=== PATIENT | male | born 1955 | race Hispanic/Latino ===

== ENCOUNTER 2016-05-30 13:35 | Inpatient (IN) | payer MEDICARE ==
[2016-05-30 14:33] LABS: Basophils % (Auto) 0.8 % (0.0-1.8); Eosinophils % (Auto) 1.4 % (0.0-4.3); Hematocrit 40.3 % (35.5-45.6); Hemoglobin 12.7 gm/dl (11.8-15.2); Mean Corpuscular HGB Conc 32 % (32-34); Mean Corpuscular Hemoglobin 27 pg (28-32); Mean Corpuscular Volume 85 fl (84-94); Platelet Count 499 K/mm3 (140-440); Red Blood Count 4.75 M/mm3 (3.65-5.03); White Blood Count 14.5 K/mm3 (4.5-11.0)
[2016-05-30 14:49] LABS: Anion Gap 25 mmol/L; Blood Urea Nitrogen 21 mg/dL (9-20); Calcium 8.4 mg/dL (8.4-10.2); Carbon Dioxide 18 mmol/L (22-30); Chloride 101.9 mmol/L (98-107); Glucose 104 mg/dL (75-100); Potassium 5.3 mmol/L (3.6-5.0); Sodium 140 mmol/L (137-145)
--- NOTE | 2016-05-30 14:52 | XRay Report ---
Chest 2 views: Compared to 08/18/15. History: Shortness of breath. Findings: Normal cardiomediastinal silhouette. The trachea is midline. Stable Port-A-Cath. Ill-defined new density in the right upper lobe and right middle lobe. Normal CP angles. Impression: New densities right lung suggestive of pneumonitis.
--- NOTE | 2016-05-30 15:35 | Admit Criteria Form ---
Admission Criteria Documentation: RESPIRATORY FAILURE GRG Clinical Indications for Admission to Inpatient Care (Place 'X' for any and all applicable criteria): Hospital admission is needed for appropriate care of the patient because of acute respiratory failure or insufficiency as indicated by ANY ONE of the following(1)(2)(3)(4)(5)(6)(7)(8): [ ]I. Mechanical ventilation needed (acute invasive or noninvasive) [ ]II. Severe ventilation deficit as indicated by ANY ONE of the following (9) [ ]a) Respiratory acidosis (pH less than 7.32 and partial pressure of carbon dioxide greater than 40 mm Hg (5.3 kPa)) [ ]b) Partial pressure of carbon dioxide greater than 44 mm Hg (5.9 kPa ) (new) [ ]c) Airflow measurements less than 25% of predicted (eg, peak expiratory flow rate less than 100 L/minute) [ ]d) Forced vital capacity less than 15 mL/kg of ideal body weight, or 50% decrease in vital capacity from baseline [ ]III. Noncardiac pulmonary edema not resolving with rapid emergency treatment (8) [X]IV. Severe respiratory distress as indicated by ANY ONE of the following: [ ]a) Severe tachypnea (respiratory rate greater than 30, greater than 45 for 6-month-old, greater than 60 for ) [X]b) Severe hypoxemia (partial pressure of oxygen less than 50 mm Hg ( 6.7 kPa) on greater than 50% oxygen or partial pressure of oxygen to FIO2 ratio less than 200) [ ]c) Mental status deterioration from respiratory disease [ ]V. Airway obstruction or inadequate protection [A](10)(11) The original [employer] content created by [employer] has been revised. The portions of the content which have been revised are identified through the use of italic text or in bold, and [facility] has neither reviewed nor approved the modified material. All other unmodified content is copyright [employer]. Please see references footnoted in the original [employer] edition 2016 Admission Criteria Met: Yes
[2016-05-30] MEDS ORDERED: DUONEB 0.5 MG-3 MG/3 ML SOLN IH ONE (17:59)
[2016-05-30] MEDS ORDERED: MAGNESIUM SULFATE 2GM/50ML 2 GM/50 ML BAG IV ONE (17:59)
[2016-05-30] MEDS ORDERED: TESSALON PERLES PO ONE (18:00)
[2016-05-30] MEDS ORDERED: MUCINEX ER PO ONE (18:00)
[2016-05-30] MEDS ORDERED: NACL 0.9% 1000 ML 1,000 ML IV ONE (18:01)
[2016-05-30] MEDS ORDERED: LEVAQUIN PO ONE (18:01)
[2016-05-30 19:15] LABS: ISTAT Base Excess -5; ISTAT HCO3 18.4; ISTAT PH 7.458 (7.35-7.45); ISTAT PO2 48 (80-105); ISTAT SO2 86; ISTAT TCO2 19
[2016-05-30] MEDS ORDERED: LEVAQUIN 750MG/150ML 750 MG/150 ML BAG IV ONE (19:19)
--- NOTE | 2016-05-30 19:21 | Emergency Department Report ---
HPI - General Chief Complaint: Dyspnea/Respdistress Time Seen by Provider: 05/30/16 17:56 - HPI HPI: The patient is a 60-year-old male with a history of COPD, who presents for evaluation of dyspnea and cough. The patient reports 2 weeks of progressive dyspnea and cough, dyspnea severe for the past one day, constant, exacerbated with exertion and coughing. She states that his cough has been productive of rivero sputum. He also complains of on and off chest pain since yesterday, 08/18 in severity, midsternal, aching in quality, exacerbated with coughing. The patient denies fever, trauma to the chest wall, hemoptysis, unilateral leg swelling, recent immobilization, history of DVT or PE. ED Past Medical Hx - Past Medical History Hx Hypertension: Yes Hx Heart Attack/AMI: Yes (stents) Hx Congestive Heart Failure: No Hx Diabetes: No Hx Pulmonary Embolism: No Hx Renal Disease: Yes (recurrent pyelonephritis, with urosepsis) Hx Kidney Stones: Yes Hx Asthma: Yes Hx COPD: No Hx Tuberculosis: No Hx HIV: No Additional medical history: left nephrectomy 2014,Hepatic CA - Surgical History Hx Coronary Stent: Yes (1 in RCA) Hx Open Heart Surgery: No Hx Cholecystectomy: No Hx Appendectomy: No Hx Breast Surgery: No Additional Surgical History: right knee, bilateral rotator cuff surgery, 2 elbow surgeries. - Social History Smoking Status: Former Smoker Substance Use Type: None - Medications Home Medications: Home Medications Medication Instructions Recorded Confirmed Last Taken Type Famotidine [Pepcid] 20 mg PO QDAY #30 tablet 08/19/14 05/30/16 08/18/15 05:59 Rx Ipratropium/Albuterol Sulfate 1 ampul IH Q8HRT #1 mo 08/19/14 05/30/16 08/18/15 05:59 Rx [Duoneb 0.5 mg-3 mg/3 ml Soln] Clopidogrel [Plavix] 75 mg PO QDAY #30 tablet 08/19/15 05/30/16 Unknown Rx Lisinopril [Zestril TAB] 5 mg PO QDAY #30 tablet 08/19/15 05/30/16 Unknown Rx Metoprolol [Lopressor TAB] 50 mg PO BID #60 tablet 08/19/15 05/30/16 Unknown Rx Simvastatin [Zocor TAB] 40 mg PO QHS #30 tablet 08/19/15 05/30/16 Unknown Rx Zolpidem [Ambien] 5 mg PO QHS PRN #15 tablet 08/19/15 05/30/16 Unknown Rx oxyCODONE [Roxicodone TAB] 5 mg PO Q6H PRN #30 tablet 08/19/15 05/30/16 Unknown Rx traMADol [Ultram 50 MG tab] 50 mg PO Q8H PRN #30 tablet 08/19/15 05/30/16 Unknown Rx HYDROcodone/APAP 5-325 [[place] 1 tab PO Q6H PRN 05/30/16 05/30/16 Unknown History 5-325 mg TAB] Omeprazole 20 mg PO DAILY 05/30/16 05/30/16 Unknown History ED Review of Systems ROS: Stated complaint: MARISELA Other details as noted in HPI Constitutional: denies: fever ENT: denies: throat or neck pain Respiratory: reports cough, shortness of breath Cardiovascular: reports chest pain Endocrine: denies unexplained weight loss or gain Gastrointestinal: denies: abdominal pain, nausea Genitourinary: denies: dysuria Musculoskeletal: denies: leg swelling Skin: denies: rash Neurological: denies: headache Hematological/Lymphatic: denies: easy bleeding or easy bruising Psych: denies sadness or hopelessness Physical Exam - Physical Exam Vital Signs: Vital Signs 05/30/16 05/30/16 05/30/16 13:59 17:12 17:55 Temperature 98.4 F 97.9 F Pulse Rate 83 69 Pulse Rate [ Anterior Bilateral] Respiratory 24 26 H Rate Respiratory Rate [Anterior Bilateral] Blood Pressure 106/61 94/54 O2 Sat by Pulse 94 90 94 Oximetry 05/30/16 05/30/16 05/30/16 18:00 18:58 19:05 Temperature Pulse Rate 88 Pulse Rate [ 86 Anterior Bilateral] Respiratory 25 H 22 Rate Respiratory 26 H Rate [Anterior Bilateral] Blood Pressure 114/78 O2 Sat by Pulse 96 96 Oximetry Physical Exam: General: well-nourished, well-developed, no acute distress Head: Normocephalic, atraumatic Eyes: normal sclera ENT: Mucous membranes are pink and moist Neck: trachea midline, neck supple, No neck stiffness, no cervical adenopathy Respiratory: Mildly diminished breath sounds and wheezing present throughout lung ramos bilaterally, rales and mild crackles present to the right mid and lower lung ramos Cardio: S1 and S2 present, no murmurs, rubs, gallops, capillary refill is brisk Abdomen: Normoactive bowel sounds, soft abdomen, no rigidity, no guarding or rebound tenderness Musc: No pitting edema Skin: No rash Neuro: no facial drooping, normal speech Psych: Normal affect ED Course Vital Signs 05/30/16 05/30/16 05/30/16 13:59 17:12 17:55 Temperature 98.4 F 97.9 F Pulse Rate 83 69 Pulse Rate [ Anterior Bilateral] Respiratory 24 26 H Rate Respiratory Rate [Anterior Bilateral] Blood Pressure 106/61 94/54 O2 Sat by Pulse 94 90 94 Oximetry 05/30/16 05/30/16 05/30/16 18:00 18:58 19:05 Temperature Pulse Rate 88 Pulse Rate [ 86 Anterior Bilateral] Respiratory 25 H 22 Rate Respiratory 26 H Rate [Anterior Bilateral] Blood Pressure 114/78 O2 Sat by Pulse 96 96 Oximetry ED Medical Decision Making - Lab Data Result diagrams: 05/30/16 14:10 05/30/16 14:10 - Medical Decision Making The patient was seen and examined by myself. The patient is placed on a pvc monitor and continuous pulse ox. On initial evaluation, the patient was found to be in no distress. EKG was negative for findings suggestive of acute cardiac infarct. The patient is given an aspirin, patella Tylenol for his pain , a DuoNeb breathing treatment, IV magnesium, and IV site measuring for treatment of COPD. Labs and imaging are obtained. Chest x-ray exhibits right middle lobe and lower lobe infiltrates, and was negative for pneumothorax, pulmonary vascular congestion, pleural effusion, or other obvious acute cardiopulmonary disease process. Lab results revealed elevated WBC of 14.3, elevated CRP of 16.8, mildly elevated potassium level 5.3, elevated BNP, and otherwise labs are grossly unrevealing including normal troponin level. The patient is given IV Zosyn and by mouth Levaquin for treatment of acute pneumonia. The patient is given 1 L normal saline fluid bolus for treatment of hyperkalemia. The on-call hospitalist service was contacted. They agreed to admit the patient for further treatment and close monitoring. The ED admit order was placed. The patient was admitted in guarded condition. Critical care attestation.: If time is entered above; I have spent that time in minutes in the direct care of this critically ill patient, excluding procedure time. ED Disposition Clinical Impression: Acute hypoxemic respiratory failure, COPD with acute exacerbation, Acute chest pain, Acute hyperkalemia Pneumonia Qualifiers: Pneumonia type: due to unspecified organism Laterality: right Lung location: lower lobe of lung Qualified Code(s): J18.9 - Pneumonia, unspecified organism Disposition: OP ADMITTED IP TO THIS HOSP Is pt being admited?: Yes Does the pt Need Aspirin: Yes Condition: Serious Instructions: Chest Pain (ED), Chronic Obstructive Pulmonary Disease (ED), Bacterial Pneumonia (ED) Referrals: LUCY KOEHLER [Other] - 3-5 Days Time of Disposition: 19:19
[2016-05-30] MEDS ORDERED: BABY ASPIRIN PO ONE (19:22)
[2016-05-30] MEDS: ZOSYN/NS 3.375GM/50ML 3.375 GM/50 ML BAG IV SCH (20:00)
[2016-05-30] MEDS ORDERED: MORPHINE ONE (20:56)
[2016-05-30] MEDS ORDERED: MORPHINE IV ONE (21:04)
[2016-05-30] MEDS ORDERED: DULCOLAX PR PRN (22:32)
[2016-05-30] MEDS ORDERED: MILK OF MAGNESIA PO PRN (22:32)
--- NOTE | 2016-05-31 00:04 | History and Physical Report ---
History of Present Illness Date of examination: 05/30/16 Date of admission: 05/30/16 22:32 History of present illness: The patient is a 60-year-old male with a history of COPD, HTN, CAD BPH and recently diagnosed liver cancer, who presents for evaluation of dyspnea and cough. The patient reports 2 weeks of progressive dyspnea and cough, dyspnea severe for the past one day, constant, exacerbated with exertion and coughing. He states that his cough has been productive of rivero sputum. He also complains of on and off chest pain since yesterday, 08/18 in severity, midsternal, aching in quality, exacerbated with coughing and breathing The patient denies fever, trauma to the chest wall, hemoptysis, unilateral leg swelling, recent immobilization, history of DVT or PE. Upon further workup he was noted to have an acute right middle and lower lobe pneumonia and is admitted for further management Past History Past Medical History: arthritis, CAD, cancer (apparently was diagnosed with liver cancer 1 week ago and his oncologist is Dr. Bravo), COPD, hypertension, hyperlipidemia Past Surgical History: arthroscopy (bilateral rotator cuff repair), total knee replacement, PTCA (with stent), Other (left nephrectomy) Social history: no significant social history (he quit smoking one year ago but apparently still smokes once in a while) Family history: no significant family history Medications and Allergies Allergies Allergy/AdvReac Type Severity Reaction Status Date / Time codeine AdvReac Rash Verified 08/17/15 10:45 Home Medications Medication Instructions Recorded Confirmed Last Taken Type Famotidine [Pepcid] 20 mg PO QDAY #30 tablet 08/19/14 05/30/16 08/18/15 05:59 Rx Ipratropium/Albuterol Sulfate 1 ampul IH Q8HRT #1 mo 08/19/14 05/30/16 08/18/15 05:59 Rx [Duoneb 0.5 mg-3 mg/3 ml Soln] Clopidogrel [Plavix] 75 mg PO QDAY #30 tablet 08/19/15 05/30/16 Unknown Rx Lisinopril [Zestril TAB] 5 mg PO QDAY #30 tablet 08/19/15 05/30/16 Unknown Rx Metoprolol [Lopressor TAB] 50 mg PO BID #60 tablet 08/19/15 05/30/16 Unknown Rx Simvastatin [Zocor TAB] 40 mg PO QHS #30 tablet 08/19/15 05/30/16 Unknown Rx Zolpidem [Ambien] 5 mg PO QHS PRN #15 tablet 08/19/15 05/30/16 Unknown Rx oxyCODONE [Roxicodone TAB] 5 mg PO Q6H PRN #30 tablet 08/19/15 05/30/16 Unknown Rx traMADol [Ultram 50 MG tab] 50 mg PO Q8H PRN #30 tablet 08/19/15 05/30/16 Unknown Rx HYDROcodone/APAP 5-325 [[place] 1 tab PO Q6H PRN 05/30/16 05/30/16 Unknown History 5-325 mg TAB] Omeprazole 20 mg PO DAILY 05/30/16 05/30/16 Unknown History Active Meds: Active Medications Acetaminophen (Tylenol) 650 mg PO Q4H PRN PRN Reason: Pain MILD(1-3)/Fever >100.5/[place] Albuterol/Ipratropium (Duoneb 0.5 Mg-3 Mg/3 Ml Soln) 1 ampul IH TIDRT [facility] Bisacodyl (Dulcolax) 10 mg [place] QDAY PRN PRN Reason: Constipation unrelieved by MOM Budesonide (Pulmicort) 0.5 mg IH Q12HRT [facility] Clopidogrel Bisulfate (Plavix) 75 mg PO QDAY [facility] Heparin Sodium (Porcine) (Heparin) 5,000 unit SUB-Q Q8HR [facility] Piperacillin Sod/Tazobactam Sod (Zosyn/Ns 3.375gm/50ml) 3.375 gm in 50 mls @ 100 mls/hr IV Q6HR [facility] Last Admin: 05/30/16 20:00 Dose: 100 mls/hr Levofloxacin/Dextrose (Levaquin 750mg/150ml) 750 mg in 150 mls @ 100 mls/hr IV Q24HR [facility] PRN Reason: Protocol Lisinopril (Zestril) 5 mg PO QDAY [facility] Magnesium Hydroxide (Milk Of Magnesia) 30 ml PO Q4H PRN PRN Reason: Constipation Metoprolol Tartrate (Lopressor) 25 mg PO BID [facility] Morphine Sulfate (Morphine) 2 mg IV Q4H PRN PRN Reason: Pain , Severe (7-10) Ondansetron HCl (Zofran) 4 mg IV Q8H PRN PRN Reason: N/V unrelieved by Reglan Simvastatin (Zocor) 40 mg PO QHS [facility] Zolpidem Tartrate (Ambien) 5 mg PO QHS PRN PRN Reason: Sleep Review of Systems Constitutional: weight loss, fatigue, weakness, poor appetite Ears, nose, mouth and throat: no ear pain, no nasal congestion, no sinus pressure, no sore throat, no headache Cardiovascular: chest pain (midsternal atypical chest pain, hurts to breathe, nonradiating), shortness of breath, high blood pressure, no palpitations, no lightheadedness Respiratory: cough, cough with sputum, shortness of breath, no wheezing Gastrointestinal: no abdominal pain, no nausea, no vomiting, no diarrhea, no constipation, no melena Genitourinary Male: no dysuria, no hematuria, no urinary frequency Rectal: no pain Musculoskeletal: arthritis, no neck pain Integumentary: no rash Neurological: no head injury, no seizures, no syncope, no headaches Psychiatric: no anxiety, no depression Endocrine: no excessive thirst, no polydipsia, no polyuria Exam - Constitutional Vitals: Temp Pulse Resp BP Pulse Ox 98 F 95 H 20 135/79 97 05/30/16 19:00 05/30/16 23:27 05/30/16 23:27 05/30/16 23:27 05/30/16 23:27 General appearance: Present: mild distress, well-nourished - EENT Eyes: Present: PERRL, EOM intact ENT: hearing intact, clear oral mucosa, no thrush - Neck Neck: Present: supple, normal ROM. Absent: masses or JVD - Respiratory Respiratory effort: normal (mildly short of breath) Respiratory: bilateral: diminished, negative: rales, rhonchi, wheezing - Cardiovascular Rhythm: regular Heart Sounds: Present: S1 & S2 - Extremities Extremities: No edema - Abdominal General gastrointestinal: Present: soft, non-tender, non-distended. Absent: hepatomegaly, splenomegaly - Rectal Rectal Exam: deferred - Musculoskeletal Musculoskeletal: strength equal bilaterally - Psychiatric Psychiatric: appropriate mood/affect - Neurologic Neurologic: no focal deficits, moves all extremities Results - Labs CBC & Chem 7: 05/30/16 14:10 04/21/17 14:10 Assessment and Plan - Patient Problems (1) Acute hypoxemic respiratory failure Current Visit: Yes Status: Acute Plan to address problem: ABGs reviewed Start on aggressive treatments with DuoNeb via nebulizer oxygen supplements Pulmonary consult on board (2) Pneumonia Current Visit: Yes Status: Acute Qualifiers: Pneumonia type: due to unspecified organism Aspiration pneumonia type: A Laterality: right Lung location: lower lobe of lung Qualified Code(s): J18.9 - Pneumonia, unspecified organism Plan to address problem: Most likely community-acquired pneumonia Patient was started on antibiotics with Levaquin while he was in the emergency department Continue Levaquin 750 mg IV daily Follow up with a repeat chest x-ray in 2-3 days (3) Liver cancer Current Visit: Yes Status: Acute Qualifiers: Liver malignancy type: L Plan to address problem: Oncology consult with Dr. Bravo was requested (4) COPD with acute exacerbation Current Visit: Yes Status: Acute Plan to address problem: Chart on Pulmicort inhalations via nebulizer Aggressive bronchodilators via nebulizer Await pulmonary consult regarding starting on intravenous steroids (5) CAD (coronary artery disease) Current Visit: Yes Status: Chronic Qualifiers: Coronary Disease-Associated Artery/Lesion type: C [place] vs. transplanted heart: N Associated angina: A Plan to address problem: Continue beta blockers Cardiology consult on board (6) Chest pain at rest Current Visit: Yes Status: Acute Plan to address problem: 2 sets of troponin levels were in the normal range EKG shows a heart rate of 85 bpm, sinus rhythm with nonspecific T changes in V3 to V5 Await cardiology evaluation
[2016-05-31] MEDS: ZOSYN/NS 3.375GM/50ML 3.375 GM/50 ML BAG IV SCH ×5 (01:07→23:03)
[2016-05-31] MEDS: AMBIEN PO PRN (02:07)
[2016-05-31] MEDS: MORPHINE IV PRN ×4 (06:02→22:51)
[2016-05-31 06:08] LABS: Hematocrit 36.5 % (35.5-45.6); Hemoglobin 11.9 gm/dl (11.8-15.2); Mean Corpuscular HGB Conc 33 % (32-34); Mean Corpuscular Hemoglobin 27 pg (28-32); Mean Corpuscular Volume 83 fl (84-94); Platelet Count 395 K/mm3 (140-440); Red Blood Count 4.39 M/mm3 (3.65-5.03); White Blood Count 12.3 K/mm3 (4.5-11.0)
[2016-05-31 06:26] LABS: Anion Gap 23 mmol/L; BUN/Creatinine Ratio 24.44; Blood Urea Nitrogen 22 mg/dL (9-20); Calcium 8.3 mg/dL (8.4-10.2); Carbon Dioxide 19 mmol/L (22-30); Chloride 98.8 mmol/L (98-107); Glucose 147 mg/dL (75-100); Potassium 4.5 mmol/L (3.6-5.0); Sodium 136 mmol/L (137-145)
[2016-05-31] MEDS: HEPARIN SUB-Q SCH ×2 (06:35→14:41)
[2016-05-31 06:39] LABS: Red Cell Distribution Width 21.4 % (13.2-15.2)
[2016-05-31 07:59] LABS: Anisocytosis 1+; Basophils % (Manual) 0 % (0.0-1.8); Blastocytes % (Manual) 0 %; Diff Status Complete; Eosinophils % (Manual) 0 % (0.0-4.3); Hypochromasia 1+; Polychromasia Few
--- NOTE | 2016-05-31 08:52 | Consultation ---
History of Present Illness Consult date: 05/31/16 Consult reason: chest pain History of present illness: The patient is a 60-year-old male with a history of COPD, HTN, CAD BPH and recently diagnosed liver cancer, who presents for evaluation of dyspnea and cough. The patient reports 2 weeks of progressive dyspnea and cough, dyspnea severe for the past one day, constant, exacerbated with exertion and coughing. He states that his cough has been productive of rivero sputum. He also complains of on and off chest pain since yesterday, 08/18 in severity, midsternal, aching in quality, exacerbated with coughing and breathing The patient denies fever, trauma to the chest wall, hemoptysis, unilateral leg swelling, recent immobilization, history of DVT or PE. Upon further workup he was noted to have an acute right middle and lower lobe pneumonia and is admitted for further management Past History Past Medical History: arthritis, CAD, cancer (apparently was diagnosed with liver cancer 1 week ago and his oncologist is Dr. Bravo), COPD, hypertension, hyperlipidemia Past Surgical History: arthroscopy (bilateral rotator cuff repair), total knee replacement, PTCA (with stent), Other (left nephrectomy) Social history: no significant social history (he quit smoking one year ago but apparently still smokes once in a while) Family history: no significant family history Medications and Allergies Allergies Allergy/AdvReac Type Severity Reaction Status Date / Time codeine AdvReac Rash Verified 08/17/15 10:45 Home Medications Medication Instructions Recorded Confirmed Last Taken Type Famotidine [Pepcid] 20 mg PO QDAY #30 tablet 08/19/14 05/30/16 08/18/15 05:59 Rx Ipratropium/Albuterol Sulfate 1 ampul IH Q8HRT #1 mo 08/19/14 05/30/16 08/18/15 05:59 Rx [Duoneb 0.5 mg-3 mg/3 ml Soln] Clopidogrel [Plavix] 75 mg PO QDAY #30 tablet 08/19/15 05/30/16 Unknown Rx Lisinopril [Zestril TAB] 5 mg PO QDAY #30 tablet 08/19/15 05/30/16 Unknown Rx Metoprolol [Lopressor TAB] 50 mg PO BID #60 tablet 08/19/15 05/30/16 Unknown Rx Simvastatin [Zocor TAB] 40 mg PO QHS #30 tablet 08/19/15 05/30/16 Unknown Rx Zolpidem [Ambien] 5 mg PO QHS PRN #15 tablet 08/19/15 05/30/16 Unknown Rx oxyCODONE [Roxicodone TAB] 5 mg PO Q6H PRN #30 tablet 08/19/15 05/30/16 Unknown Rx traMADol [Ultram 50 MG tab] 50 mg PO Q8H PRN #30 tablet 08/19/15 05/30/16 Unknown Rx HYDROcodone/APAP 5-325 [[place] 1 tab PO Q6H PRN 05/30/16 05/30/16 Unknown History 5-325 mg TAB] Omeprazole 20 mg PO DAILY 05/30/16 05/30/16 Unknown History Active Meds: Active Medications Acetaminophen (Tylenol) 650 mg PO Q4H PRN PRN Reason: Pain MILD(1-3)/Fever >100.5/[place] Albuterol/Ipratropium (Duoneb 0.5 Mg-3 Mg/3 Ml Soln) 1 ampul IH TIDRT [facility] Bisacodyl (Dulcolax) 10 mg [place] QDAY PRN PRN Reason: Constipation unrelieved by MOM Budesonide (Pulmicort) 0.5 mg IH Q12HRT [facility] Clopidogrel Bisulfate (Plavix) 75 mg PO QDAY [facility] Heparin Sodium (Porcine) (Heparin) 5,000 unit SUB-Q Q8HR [facility] Last Admin: 05/31/16 06:35 Dose: 5,000 unit Piperacillin Sod/Tazobactam Sod (Zosyn/Ns 3.375gm/50ml) 3.375 gm in 50 mls @ 100 mls/hr IV Q6HR [facility] Last Admin: 05/31/16 05:54 Dose: 100 mls/hr Levofloxacin/Dextrose (Levaquin 750mg/150ml) 750 mg in 150 mls @ 100 mls/hr IV Q24HR [facility] PRN Reason: Protocol Lisinopril (Zestril) 5 mg PO QDAY [facility] Magnesium Hydroxide (Milk Of Magnesia) 30 ml PO Q4H PRN PRN Reason: Constipation Metoprolol Tartrate (Lopressor) 25 mg PO BID [facility] Morphine Sulfate (Morphine) 2 mg IV Q4H PRN PRN Reason: Pain , Severe (7-10) Last Admin: 05/31/16 06:02 Dose: 2 mg Ondansetron HCl (Zofran) 4 mg IV Q8H PRN PRN Reason: N/V unrelieved by Reglan Simvastatin (Zocor) 40 mg PO QHS [facility] Zolpidem Tartrate (Ambien) 5 mg PO QHS PRN PRN Reason: Sleep Last Admin: 05/31/16 02:07 Dose: 5 mg Physical Examination Vital Signs Temp Pulse Resp BP Pulse Ox 98.4 F 83 24 106/61 94 05/30/16 13:59 05/30/16 13:59 05/30/16 13:59 05/30/16 13:59 05/30/16 13:59 General appearance: no acute distress HEENT: Positive: PERRL, EOMI Neck: Positive: neck supple Cardiac: Positive: Reg Rate and Rhythm, S1/S2 Lungs: Positive: Normal Exam Neuro: Positive: Grossly Intact Extremities: Present: normal Results 05/31/16 04:00 05/31/16 04:00 CBC 05/31/16 Range/Units 04:00 WBC 12.3 H (4.5-11.0) K/mm3 RBC 4.39 (3.65-5.03) M/mm3 Hgb 11.9 (11.8-15.2) gm/dl Hct 36.5 (35.5-45.6) % Plt Count 395 (140-440) K/mm3 Comprehensive Metabolic Panel 05/31/16 Range/Units 04:00 Sodium 136 L (137-145) mmol/L Potassium 4.5 (3.6-5.0) mmol/L Chloride 98.8 (98-107) mmol/L Carbon Dioxide 19 L (22-30) mmol/L BUN 22 H (9-20) mg/dL Creatinine 0.9 (0.8-1.5) mg/dL Glucose 147 H (75-100) mg/dL Calcium 8.3 L (8.4-10.2) mg/dL EKG interpretations - Telemetry EKG Rhythm: Sinus Rhythm Assessment and Plan (1) Acute hypoxemic respiratory failure - management per pulmonology (2) Pneumonia - on abx per primary and pulmonology (3) Liver cancer -new diagnosis. Patient is unaware of plan for therapy. Oncology consult with Dr. Bravo was requested (4) COPD with acute exacerbation - on Pulmicort inhalations, bronchodilators via nebulizer. Pulmonology to follow (5) CAD s/p PCI 07/25 - Patient is having chest pain similar to chest pain experienced at the time of stent placement. EKG shows normal sinus rhythm with nonspecific STTW changes. continue BB, statin, and DAPT. Recommend maximization of medical therapy at this time. Patient should be on DAPT for 6 more weeks. Further invasive management would be depended on the extent and prognosis of liver cancer. If patient is determined to be a poor candidate for anticoagulation, would not recommend further invasive management.
[2016-05-31] MEDS: DUONEB 0.5 MG-3 MG/3 ML SOLN IH SCH ×3 (09:12→20:11)
[2016-05-31] MEDS: PULMICORT IH SCH ×2 (09:12→20:11)
--- NOTE | 2016-05-31 09:16 | XRay Report ---
Single view chest: Compared to 05/30/16 obtained at 2:18 PM. The. History: Chest pain. Findings: Normal cardiomediastinal silhouette. Trachea is midline. No interval change compared to previous study. Impression: No interval change compared to previous study.
--- NOTE | 2016-05-31 10:53 | Progress Note ---
Assessment and Plan Assessment and plan: Right lower lobe pneumonia Acute respiratory failure Sepsis Liver cancer - Patient is treated according to sepsis protocol - Oxygen support - Breathing treatment - Support for his liver cancer followup o/p with oncologist - CTA, coagulation panel, repeat lactic acid - Continue home medications Prophylaxis - Heparin Disposition -Continue inpatient care History Interval history: Patient was seen and evaluated this morning, Patient is feeling weak and tired. Patient is complaining of SOB. Hospitalist Physical - Physical exam Narrative exam: In mild cardiopulmonary distress. The patient is friable, emaciated. Vital signs as documented. Head exam is unremarkable. No scleral icterus . Neck is without jugular venous distension, thyromegaly, or carotid bruits. Lungs are clear to auscultation. Cardiac exam reveals regular rate and Rhythm. First and second heart sounds normal. No murmurs, rubs or gallops. Abdominal exam reveals distended, soft abdomen Extremities are nonedematous and both femoral and pedal pulses are normal. TECHNOLOGY TRAINER: Alert and oriented 3. No focal weakness. - Constitutional Vitals: Temp Pulse Resp BP Pulse Ox 98.1 F 98 H 24 140/75 98 05/31/16 08:19 05/31/16 09:38 05/31/16 09:38 05/31/16 08:19 05/31/16 08:19 General appearance: Present: no acute distress Results - Labs CBC & Chem 7: 05/31/16 04:00 05/31/16 04:00 Labs: Laboratory Last Values WBC 12.3 K/mm3 (4.5-11.0) H 05/31/16 04:00 RBC 4.39 M/mm3 (3.65-5.03) 05/31/16 04:00 Hgb 11.9 gm/dl (11.8-15.2) 05/31/16 04:00 Hct 36.5 % (35.5-45.6) 05/31/16 04:00 MCV 83 fl (84-94) L 05/31/16 04:00 MCH 27 pg (28-32) L 05/31/16 04:00 MCHC 33 % (32-34) 05/31/16 04:00 RDW 21.4 % (13.2-15.2) H 05/31/16 04:00 Plt Count 395 K/mm3 (140-440) 05/31/16 04:00 Lymph % (Auto) 5.8 % (13.4-35.0) L 05/30/16 14:10 [place] % (Auto) 8.9 % (0.0-7.3) H 05/30/16 14:10 Eos % (Auto) 1.4 % (0.0-4.3) 05/30/16 14:10 Baso % (Auto) 0.8 % (0.0-1.8) 05/30/16 14:10 Lymph # 0.8 K/mm3 (1.2-5.4) L 05/30/16 14:10 [place] # 1.3 K/mm3 (0.0-0.8) H 05/30/16 14:10 Eos # 0.2 K/mm3 (0.0-0.4) 05/30/16 14:10 Baso # 0.1 K/mm3 (0.0-0.1) 05/30/16 14:10 Add Manual Diff Complete 05/31/16 04:00 Total Counted 100 05/31/16 04:00 Seg Neutrophils % Maintenance Engineer 05/31/16 04:00 Seg Neuts % (Manual) 90.0 % (40.0-70.0) H 05/31/16 04:00 Band Neutrophils % 5.0 % 05/31/16 04:00 Lymphocytes % (Manual) 4.0 % (13.4-35.0) L 05/31/16 04:00 Reactive Lymphs % (Man) 0 % 05/31/16 04:00 Monocytes % (Manual) 1.0 % (0.0-7.3) 05/31/16 04:00 Eosinophils % (Manual) 0 % (0.0-4.3) 05/31/16 04:00 Basophils % (Manual) 0 % (0.0-1.8) 05/31/16 04:00 Metamyelocytes % 0 % 05/31/16 04:00 Myelocytes % 0 % 05/31/16 04:00 Promyelocytes % 0 % 05/31/16 04:00 Blast Cells % 0 % 05/31/16 04:00 Nucleated RBC % Not Reportable 05/31/16 04:00 Seg Neutrophils # 12.1 K/mm3 (1.8-7.7) H 05/30/16 14:10 Seg Neutrophils # Man 11.1 K/mm3 (1.8-7.7) H 05/31/16 04:00 Band Neutrophils # 0.6 K/mm3 05/31/16 04:00 Lymphocytes # (Manual) 0.5 K/mm3 (1.2-5.4) L 05/31/16 04:00 Abs React Lymphs (Man) 0.0 K/mm3 05/31/16 04:00 Monocytes # (Manual) 0.1 K/mm3 (0.0-0.8) 05/31/16 04:00 Eosinophils # (Manual) 0.0 K/mm3 (0.0-0.4) 05/31/16 04:00 Basophils # (Manual) 0.0 K/mm3 (0.0-0.1) 05/31/16 04:00 Metamyelocytes # 0.0 K/mm3 05/31/16 04:00 Myelocytes # 0.0 K/mm3 05/31/16 04:00 Promyelocytes # 0.0 K/mm3 05/31/16 04:00 Blast Cells # 0.0 K/mm3 05/31/16 04:00 WBC Morphology Not Reportable 05/31/16 04:00 Hypersegmented Neuts Not Reportable 05/31/16 04:00 Hyposegmented Neuts Not Reportable 05/31/16 04:00 Hypogranular Neuts Not Reportable 05/31/16 04:00 Smudge Cells Not Reportable 05/31/16 04:00 Toxic Granulation Not Reportable 05/31/16 04:00 Toxic Vacuolation Not Reportable 05/31/16 04:00 Dohle Bodies Not Reportable 05/31/16 04:00 Pelger-Huet Anomaly Not Reportable 05/31/16 04:00 [place] Rods Not Reportable 05/31/16 04:00 Platelet Estimate Appears normal 05/31/16 04:00 Clumped Platelets Not Reportable 05/31/16 04:00 Plt Clumps, EDTA Not Reportable 05/31/16 04:00 Large Platelets Not Reportable 05/31/16 04:00 Giant Platelets Not Reportable 05/31/16 04:00 Platelet Satelliting Not Reportable 05/31/16 04:00 Plt Morphology Comment Not Reportable 05/31/16 04:00 RBC Morphology Not Reportable 05/31/16 04:00 Dimorphic RBCs Not Reportable 05/31/16 04:00 Polychromasia Few 05/31/16 04:00 Hypochromasia 1+ 05/31/16 04:00 Poikilocytosis Not Reportable 05/31/16 04:00 Anisocytosis 1+ 05/31/16 04:00 Microcytosis Not Reportable 05/31/16 04:00 Macrocytosis Not Reportable 05/31/16 04:00 Spherocytes Not Reportable 05/31/16 04:00 Pappenheimer Bodies Not Reportable 05/31/16 04:00 Sickle Cells Not Reportable 05/31/16 04:00 Target Cells Not Reportable 05/31/16 04:00 Tear Drop Cells Not Reportable 05/31/16 04:00 Ovalocytes Not Reportable 05/31/16 04:00 Helmet Cells Not Reportable 05/31/16 04:00 Perez-[place] Bodies Not Reportable 05/31/16 04:00 [place] Rings Not Reportable 05/31/16 04:00 Kal Cells Not Reportable 05/31/16 04:00 Bite Cells Not Reportable 05/31/16 04:00 Crenated Cell Not Reportable 05/31/16 04:00 Elliptocytes Not Reportable 05/31/16 04:00 Acanthocytes (Spur) Not Reportable 05/31/16 04:00 Rouleaux Not Reportable 05/31/16 04:00 Hemoglobin C Crystals Not Reportable 05/31/16 04:00 Schistocytes Not Reportable 05/31/16 04:00 Malaria parasites Not Reportable 05/31/16 04:00 Carlos Bodies Not Reportable 05/31/16 04:00 Hem Pathologist Commnt No 05/31/16 04:00 POC ABG pH 7.458 (7.35-7.45) H 05/30/16 19:01 POC ABG pCO2 26.0 (35-45) L 05/30/16 19:01 POC ABG pO2 48 (80-105) L 05/30/16 19:01 POC ABG HCO3 18.4 05/30/16 19:01 POC ABG Total CO2 19 05/30/16 19:01 POC ABG O2 Sat 86 05/30/16 19:01 POC ABG Base Excess -5 05/30/16 19:01 FiO2 2 % 05/30/16 19:01 Sodium 136 mmol/L (137-145) L 05/31/16 04:00 Potassium 4.5 mmol/L (3.6-5.0) 05/31/16 04:00 Chloride 98.8 mmol/L (98-107) 05/31/16 04:00 Carbon Dioxide 19 mmol/L (22-30) L 05/31/16 04:00 Anion Gap 23 mmol/L 05/31/16 04:00 BUN 22 mg/dL (9-20) H 05/31/16 04:00 Creatinine 0.9 mg/dL (0.8-1.5) 05/31/16 04:00 Estimated GFR > 60 ml/min 05/31/16 04:00 BUN/Creatinine Ratio 24.44 % 05/31/16 04:00 Glucose 147 mg/dL (75-100) H 05/31/16 04:00 Lactic Acid 2.8 mmol/L (0.7-2.0) H* 05/30/16 23:08 Calcium 8.3 mg/dL (8.4-10.2) L 05/31/16 04:00 Troponin T 0.024 ng/mL (0.00-0.029) 05/30/16 14:10 C-Reactive Protein 16.80 mg/dL (0.00-1.30) H 05/30/16 18:15 NT-Pro-B Natriuret Pep 7293 pg/mL (0-900) H 05/30/16 18:15
[2016-05-31] MEDS: LEVAQUIN 750MG/150ML 750 MG/150 ML BAG IV SCH (11:19)
[2016-05-31] MEDS: PLAVIX PO SCH (11:25)
[2016-05-31] MEDS: ZESTRIL PO SCH (11:32)
[2016-05-31] MEDS: LOPRESSOR PO SCH ×2 (11:32→21:25)
[2016-05-31] MEDS: IMDUR PO SCH (11:33)
[2016-05-31 12:31] LABS: INR 1.16 (0.87-1.13)
[2016-05-31 12:32] LABS: Partial Thromboplastin Time 30.1 Sec. (24.2-36.6)
--- NOTE | 2016-05-31 13:16 | Consultation ---
History of Present Illness Consult date: 05/31/16 Requesting physician: TEOFILO MELENDEZ Reason for consult: other (Acute Respiratory Failure) History of present illness: PULMONARY/CCM CONSULT NOTE (Full dictation # [id number]) Please see dictated notes for full details Past History Past Medical History: arthritis, CAD, cancer (apparently was diagnosed with liver cancer 1 week ago and his oncologist is Dr. Bravo), COPD, hypertension, hyperlipidemia Past Surgical History: arthroscopy (bilateral rotator cuff repair), total knee replacement, PTCA (with stent), Other (left nephrectomy) Social history: no significant social history (he quit smoking one year ago but apparently still smokes once in a while) Family history: no significant family history Medications and Allergies Allergies Allergy/AdvReac Type Severity Reaction Status Date / Time codeine AdvReac Rash Verified 08/17/15 10:45 Home Medications Medication Instructions Recorded Confirmed Last Taken Type Famotidine [Pepcid] 20 mg PO QDAY #30 tablet 08/19/14 05/30/16 08/18/15 05:59 Rx Ipratropium/Albuterol Sulfate 1 ampul IH Q8HRT #1 mo 08/19/14 05/30/16 08/18/15 05:59 Rx [Duoneb 0.5 mg-3 mg/3 ml Soln] Clopidogrel [Plavix] 75 mg PO QDAY #30 tablet 08/19/15 05/30/16 Unknown Rx Lisinopril [Zestril TAB] 5 mg PO QDAY #30 tablet 08/19/15 05/30/16 Unknown Rx Metoprolol [Lopressor TAB] 50 mg PO BID #60 tablet 08/19/15 05/30/16 Unknown Rx Simvastatin [Zocor TAB] 40 mg PO QHS #30 tablet 08/19/15 05/30/16 Unknown Rx Zolpidem [Ambien] 5 mg PO QHS PRN #15 tablet 08/19/15 05/30/16 Unknown Rx oxyCODONE [Roxicodone TAB] 5 mg PO Q6H PRN #30 tablet 08/19/15 05/30/16 Unknown Rx traMADol [Ultram 50 MG tab] 50 mg PO Q8H PRN #30 tablet 08/19/15 05/30/16 Unknown Rx HYDROcodone/APAP 5-325 [[place] 1 tab PO Q6H PRN 04/21/17 04/21/17 Unknown History 5-325 mg TAB] Omeprazole 20 mg PO DAILY 05/30/16 05/30/16 Unknown History Active Meds: Active Medications Acetaminophen (Tylenol) 650 mg PO Q4H PRN PRN Reason: Pain MILD(1-3)/Fever >100.5/[place]ER Albuterol/Ipratropium (Duoneb 0.5 Mg-3 Mg/3 Ml Soln) 1 ampul IH TIDRT [facility] Last Admin: 05/31/16 09:12 Dose: 1 ampul Bisacodyl (Dulcolax) 10 mg WA QDAY PRN PRN Reason: Constipation unrelieved by MOM Budesonide (Pulmicort) 0.5 mg IH Q12HRT [facility] Last Admin: 05/31/16 09:12 Dose: 0.5 mg Clopidogrel Bisulfate (Plavix) 75 mg PO QDAY [facility] Last Admin: 05/31/16 11:25 Dose: 75 mg Heparin Sodium (Porcine) (Heparin) 5,000 unit SUB-Q Q8HR [facility] Last Admin: 05/31/16 06:35 Dose: 5,000 unit Piperacillin Sod/Tazobactam Sod (Zosyn/Ns 3.375gm/50ml) 3.375 gm in 50 mls @ 100 mls/hr IV Q6HR [facility] Last Admin: 05/31/16 11:18 Dose: 100 mls/hr Levofloxacin/Dextrose (Levaquin 750mg/150ml) 750 mg in 150 mls @ 100 mls/hr IV Q24HR [facility] PRN Reason: Protocol Last Admin: 05/31/16 11:19 Dose: 100 mls/hr Isosorbide Mononitrate (Imdur) 30 mg PO QDAY [facility] Last Admin: 05/31/16 11:33 Dose: Not Given Lisinopril (Zestril) 5 mg PO QDAY [facility] Last Admin: 05/31/16 11:32 Dose: Not Given Magnesium Hydroxide (Milk Of Magnesia) 30 ml PO Q4H PRN PRN Reason: Constipation Metoprolol Tartrate (Lopressor) 25 mg PO BID [facility] Last Admin: 05/31/16 11:32 Dose: Not Given Morphine Sulfate (Morphine) 2 mg IV Q4H PRN PRN Reason: Pain , Severe (7-10) Last Admin: 05/31/16 06:02 Dose: 2 mg Ondansetron HCl (Zofran) 4 mg IV Q8H PRN PRN Reason: N/V unrelieved by Reglan Simvastatin (Zocor) 40 mg PO QHS STACIE Zolpidem Tartrate (Ambien) 5 mg PO QHS PRN PRN Reason: Sleep Last Admin: 05/31/16 02:07 Dose: 5 mg Physical Examination Vital signs: Vital Signs Temp Pulse Resp BP Pulse Ox 98.4 F 83 24 106/61 94 05/30/16 13:59 05/30/16 13:59 05/30/16 13:59 05/30/16 13:59 05/30/16 13:59 Results - Laboratory Findings CBC and BMP: 05/31/16 04:00 05/31/16 04:00 ABG POC ABG pH 7.458 (7.35-7.45) H 05/30/16 19:01 POC ABG pCO2 26.0 (35-45) L 05/30/16 19:01 POC ABG pO2 48 (80-105) L 05/30/16 19:01 POC ABG HCO3 18.4 05/30/16 19:01 POC ABG Total CO2 19 05/30/16 19:01 POC ABG O2 Sat 86 05/30/16 19:01 PT/INR, D-dimer PT 14.7 Sec. (12.2-14.9) 05/31/16 11:50 INR 1.16 (0.87-1.13) H 05/31/16 11:50 Abnormal lab findings: Abnormal Labs 05/30/16 05/31/16 05/31/16 23:08 04:00 04:00 WBC 12.3 H MCV 83 L MCH 27 L RDW 21.4 H Seg Neuts % (Manual) 90.0 H Lymphocytes % (Manual) 4.0 L Seg Neutrophils # Man 11.1 H Lymphocytes # (Manual) 0.5 L INR Sodium 136 L Carbon Dioxide 19 L BUN 22 H Glucose 147 H Lactic Acid 2.8 H* Calcium 8.3 L 05/31/16 05/31/16 11:50 11:50 WBC MCV MCH RDW Seg Neuts % (Manual) Lymphocytes % (Manual) Seg Neutrophils # Man Lymphocytes # (Manual) INR 1.16 H Sodium Carbon Dioxide BUN Glucose Lactic Acid 4.9 H* Calcium
[2016-05-31] MEDS ORDERED: NACL ONE (13:32)
--- NOTE | 2016-05-31 13:52 | Hem/Onc Progress Note ---
Assessment and Plan Patient with metastatic disease to the liver. Now with pneumonia. We have to postpone chemotherapy to the pneumonia is controlled. Prognosis is guarded. Did discuss CPR etc. with the patient but he at this time states 'do what you have to to make me live for now'. Subjective Date of service: 05/31/16 Interval history: Patient with history of urothelial malignancy with liver metastases. He was to start chemotherapy. He presented with shortness of breath was found to have pneumonia. Objective - Constitutional Vitals: Last Vital Signs Temp 98.8 F 05/31/16 13:29 Pulse 112 H 05/31/16 13:29 Resp 20 05/31/16 13:29 BP 127/76 05/31/16 13:29 Pulse Ox 89 05/31/16 13:29 General appearance: mild distress Performance status: 4-completely disabled - Neck Neck: supple - Respiratory Respiratory: bilateral: diminished - Cardiovascular Rhythm: regular - Gastrointestinal General gastrointestinal: Present: tender (right upper quadrant) - Labs Lab Results: Laboratory Results - last 24 hr 05/30/16 05/31/16 05/31/16 23:08 04:00 04:00 WBC 12.3 H RBC 4.39 Hgb 11.9 Hct 36.5 MCV 83 L MCH 27 L MCHC 33 RDW 21.4 H Plt Count 395 Add Manual Diff Complete Total Counted 100 Seg Neutrophils % Floatlight Powder Mixer Seg Neuts % (Manual) 90.0 H Band Neutrophils % 5.0 Lymphocytes % (Manual) 4.0 L Reactive Lymphs % (Man) 0 Monocytes % (Manual) 1.0 Eosinophils % (Manual) 0 Basophils % (Manual) 0 Metamyelocytes % 0 Myelocytes % 0 Promyelocytes % 0 Blast Cells % 0 Nucleated RBC % Not Reportable Seg Neutrophils # Man 11.1 H Band Neutrophils # 0.6 Lymphocytes # (Manual) 0.5 L Abs React Lymphs (Man) 0.0 Monocytes # (Manual) 0.1 Eosinophils # (Manual) 0.0 Basophils # (Manual) 0.0 Metamyelocytes # 0.0 Myelocytes # 0.0 Promyelocytes # 0.0 Blast Cells # 0.0 WBC Morphology Not Reportable Hypersegmented Neuts Not Reportable Hyposegmented Neuts Not Reportable Hypogranular Neuts Not Reportable Smudge Cells Not Reportable Toxic Granulation Not Reportable Toxic Vacuolation Not Reportable Dohle Bodies Not Reportable Pelger-Huet Anomaly Not Reportable [place] Rods Not Reportable Platelet Estimate Appears normal Clumped Platelets Not Reportable Plt Clumps, EDTA Not Reportable Large Platelets Not Reportable Giant Platelets Not Reportable Platelet Satelliting Not Reportable Plt Morphology Comment Not Reportable RBC Morphology Not Reportable Dimorphic RBCs Not Reportable Polychromasia Few Hypochromasia 1+ Poikilocytosis Not Reportable Anisocytosis 1+ Microcytosis Not Reportable Macrocytosis Not Reportable Spherocytes Not Reportable Pappenheimer Bodies Not Reportable Sickle Cells Not Reportable Target Cells Not Reportable Tear Drop Cells Not Reportable Ovalocytes Not Reportable Helmet Cells Not Reportable Perez-[place] Bodies Not Reportable [place] Rings Not Reportable Kal Cells Not Reportable Bite Cells Not Reportable Crenated Cell Not Reportable Elliptocytes Not Reportable Acanthocytes (Spur) Not Reportable Rouleaux Not Reportable Hemoglobin C Crystals Not Reportable Schistocytes Not Reportable Malaria parasites Not Reportable Carlos Bodies Not Reportable Hem Pathologist Commnt No PT INR APTT Sodium 136 L Potassium 4.5 Chloride 98.8 Carbon Dioxide 19 L Anion Gap 23 BUN 22 H Creatinine 0.9 Estimated GFR > 60 BUN/Creatinine Ratio 24.44 Glucose 147 H Lactic Acid 2.8 H* Calcium 8.3 L 05/31/16 05/31/16 11:50 11:50 WBC RBC Hgb Hct MCV MCH MCHC RDW Plt Count Add Manual Diff Total Counted Seg Neutrophils % Seg Neuts % (Manual) Band Neutrophils % Lymphocytes % (Manual) Reactive Lymphs % (Man) Monocytes % (Manual) Eosinophils % (Manual) Basophils % (Manual) Metamyelocytes % Myelocytes % Promyelocytes % Blast Cells % Nucleated RBC % Seg Neutrophils # Man Band Neutrophils # Lymphocytes # (Manual) Abs React Lymphs (Man) Monocytes # (Manual) Eosinophils # (Manual) Basophils # (Manual) Metamyelocytes # Myelocytes # Promyelocytes # Blast Cells # WBC Morphology Hypersegmented Neuts Hyposegmented Neuts Hypogranular Neuts Smudge Cells Toxic Granulation Toxic Vacuolation Dohle Bodies Pelger-Huet Anomaly [place] Rods Platelet Estimate Clumped Platelets Plt Clumps, EDTA Large Platelets Giant Platelets Platelet Satelliting Plt Morphology Comment RBC Morphology Dimorphic RBCs Polychromasia Hypochromasia Poikilocytosis Anisocytosis Microcytosis Macrocytosis Spherocytes Pappenheimer Bodies Sickle Cells Target Cells Tear Drop Cells Ovalocytes Helmet Cells Perez-[place] Bodies [place] Rings Thayer Cells Bite Cells Crenated Cell Elliptocytes Acanthocytes (Spur) Rouleaux Hemoglobin C Crystals Schistocytes Malaria parasites Carlos Bodies Hem Pathologist Commnt PT 14.7 INR 1.16 H APTT 30.1 Sodium Potassium Chloride Carbon Dioxide Anion Gap BUN Creatinine Estimated GFR BUN/Creatinine Ratio Glucose Lactic Acid 4.9 H* Calcium
--- NOTE | 2016-05-31 15:04 | Cat Scan Report ---
FINAL REPORT EXAM: CT ANGIO CHEST HISTORY: SOB, cancer patient, R/O PE TECHNIQUE: CTA of chest with IV contrast. Coronal and sagittal and MIP reconstructed images provided. PRIORS: None currently available. FINDINGS: Focal area of irregular nodular consolidations with interseptal thickening and surrounding ground-glass opacities are scattered in both upper lungs less notably in the right middle lung. Linear scarring or discoid atelectasis in the left lung base identified. Trace left pleural effusion noted. There may be a focal area of nodularity in the right upper lung with ill-defined margins on series 3:29 measuring 10.2 mm. Another tiny nodule in the right apical lung on image 17 measures 4.6 mm. [id number] emphysema identified. Linear scarring or minimal discoid atelectasis in the right lung base noted. No pneumothorax. No distinct endobronchial lesion. Main pulmonary arteries are unremarkable. No pulmonary embolus. No aortic aneurysm. No dissection. Mild aortic atherosclerotic disease. Heart size unremarkable. No pericardial effusion. Prominent left axillary lymph nodes nonspecific measuring 14 x 8 mm. Right axillary regions unremarkable. Prominent subcentimeter mediastinal lymph nodes. One notably large left mediastinal lymph node on image 50 measures 11 x 16 mm. Hilar regions are unremarkable. Images of the esophagus are unremarkable. Nonspecific low-attenuation lesion in the left liver on series 3:19 measures 14 mm. Ill-defined area of decreased attenuation the right liver on image 132 is nonspecific but suspicious. Another lesion more posteriorly measuring 11 mm is also nonspecific. [id number] ascites identified. Nonspecific partially imaged heterogeneous low-attenuation lesion in the left periaortic region on series 3:45 measures at least 47 x 51 mm. Soft tissue lesion adjacent to surgical clips in the left renal fossa and on image 145 measures 31 mm. Nonspecific indeterminate nodularity of the left adrenal gland measures 26 mm. Right adrenal gland is unremarkable. No suspicious osseous lesions on this limited examination of the skeleton. Metastatic disease better evaluated with bone scan. Degenerative changes are present in the spine. IMPRESSION: No pulmonary embolus. No aortic aneurysm or dissection. Scattered irregular nodular consolidations with interseptal thickening surrounding gland glass opacities in both upper lungs and to a lesser extent in the right middle lung is suspicious for malignancy. Differential diagnosis would include atypical or fungal pneumonia or non-fibrotic type pneumonitis. Prominent left axillary and mediastinal lymph nodes. Nonspecific lesions in the liver are suspicious for metastatic disease. Indeterminate left adrenal nodularity. Nonspecific lesion in the left periaortic region and left renal fossa. There is concern for malignancy. Further imaging with a CT abdomen pelvis with contrast recommended. Emphysema.
[2016-05-31] MEDS: PEPCID PO SCH (20:12)
[2016-05-31] MEDS: TYLENOL PO PRN (21:24)
[2016-05-31] MEDS: LOVENOX SUB-Q SCH (21:25)
[2016-05-31] MEDS: ZOCOR PO SCH (21:25)
--- NOTE | 2016-05-31 21:39 | Consultation ---
CONSULTING PHYSICIAN: Dr. Orlin Ortega. REASON FOR CONSULTATION: Respiratory failure. CHIEF COMPLAINT AND HISTORY OF PRESENT ILLNESS: The patient is a 60-year-old male with past medical history significant amongst other things for a diagnosis of chronic obstructive lung disease, but also according to the record was recently diagnosed with liver cancer, came to the Emergency Room after 2 weeks of increasing dyspnea on exertion, cough with expectoration of greenish to yellowish phlegm. He denied any gross or streaky hemoptysis in the preceding 24-48 hours prior to presentation and mentioned that he was having significant pleuritic chest pain with his symptoms, so he came in. In the Emergency Room, was evaluated and was ultimately diagnosed with pneumonia and we are asked to assist in his management. When I stopped by to see him, he was resting in bed, certainly in [id number] respiratory distress, was stated he felt a little bit better, was a little bit hungry. He denied any nausea, vomiting, or overt aspiration prior to coming to the hospital. He does admit to about to certainly a 70-nrgr-mznm-year tobacco smoking history. Denied any sick contacts. He denied being on any bronchodilators or running out of home medications. He was not on home oxygen. He denied any new onset of leg pain or swelling either unilaterally or bilaterally, or any suggestion of a deep venous thrombosis. That really is as much of the history of presentation as I have. PAST MEDICAL HISTORY: Chronic obstructive lung disease, hypertension, coronary artery disease, benign prostatic hyperplasia, recently diagnosed liver cancer, and history of coronary artery disease. PAST SURGICAL HISTORY: He has had bilateral rotator cuff repair, total knee replacement. He has had coronary artery stenting and left nephrectomy. MEDICATIONS: He was on at the time I stopped by to see him, according to the medication administration record included the following: Tylenol 650 mg p.o. q.4h. p.r.n. mild pain, DuoNeb treatments nebulized t.i.d., Dulcolax p.r.n., Pulmicort 0.5 mg inhaled q.12h., Plavix 75 mg p.o. daily, heparin 5000 units subQ q.8 hours, Imdur 30 mg p.o. daily, Levaquin 750 mg IV daily, lisinopril 5 mg p.o. daily, metoprolol 25 mg p.o. b.i.d., morphine sulfate 2 mg IV q. 4 hours p.r.n. severe pain, Zofran 4 mg IV q. 8 hours p.r.n. nausea and vomiting, Zosyn 3.375 grams IV q.6 hours, Zocor 40 mg p.o. at bedtime and p.r.n. Ambien. ALLERGIES: CODEINE, nature of this allergy is unknown. DIET: Thin gentleman. He has lost some weight in the preceding few weeks to months. FAMILY AND SOCIAL HISTORY: Lives in the community. He has a 10+ pack-year tobacco smoking history. Denies alcohol, tobacco, or illicit drug use or abuse currently. REVIEW OF SYSTEMS: No overt loss of consciousness. No new onset seizures. No new onset focal weakness. No gross hematochezia or melena. He had a new cough and expectoration. Denies hemoptysis. Denies hematemesis, no gross dysuria. No new onset seizures. Complete review of systems obtained. Pertinent positives and/or negatives as in body of history above, otherwise there are noncontributory. PHYSICAL EXAMINATION: VITAL SIGNS: At presentation, he was afebrile, temperature 98.4, pulse was 83, respiratory rate was 24, blood pressure 106/61, oxygen sats 94%, inspired oxygen concentration was not recorded. HEAD, EYES, EARS, NOSE, AND THROAT: Pupils are equal, round, about 4 mm, reactive to light. Extraocular muscle movements appeared intact. Oropharynx is a Mallampati number 2 oropharynx. No significant posterior oropharyngeal erythema or exudation. Grossly, there were no palpable lymph nodes in the supraclavicular or submandibular lymph node chains. LUNGS: Auscultation of both lung ramos revealed bilateral rales. Slightly prolonged expiratory phase. No wheezing. HEART: Heart sounds 1 and 2 are heard. There were regular in rate and rhythm at time of my evaluation. ABDOMEN: Soft. Bowel sounds are positive. Did not appear tender. EXTREMITIES: Without overt digital clubbing, cyanosis, or pedal edema. NEUROLOGIC: The exam is grossly nonfocal. LABORATORY DATA: From my review are as follows: White cell count on admission 14,500 with a hemoglobin of 12.7, hematocrit of 40.3, and platelet count of 499. No band forms reported. Arterial blood gas showed a pH of 7.46, pCO2 of 26, pO2 of 48 that was on 28% FiO2. Serum sodium was 140, potassium 5.3, chloride 102, bicarbonate 18, BUN 21, creatinine 1.0. Glucose was 104. Lactic acid level was 2.8 this has gone up to 4.9. CRP was elevated at 16.8. BNP 7293. Microbiology study is no growth to date. Influenza A and B screen negative. Radiographic studies have been reviewed. I have also reviewed the radiologist's interpretation. I have an old chest x-ray from 2016. He does have a right upper lobe anterior chest wall really Port-A-Cath in place that was recently installed presumably for chemotherapy. The x-ray mentions new density is in the right lower lobe that will believe to be a pneumonia. I do see the areas in question. A CT angio was done this is appropriately done on 05/31/2016 which is today. He has areas of bronchiectatic changes in both lower lobes in particular area of left lower lobe atelectasis/consolidation posteriorly. He has infiltrates in the right upper lobe and then questionably nodular area in the right upper lobe also anteriorly as well as areas of ground-glass opacification. The overall picture is consistent with an element of interstitial lung disease with superimposed pneumonitis/pneumonia and nodular consolidations that may represent other atypical granulomatous infections. In terms of mediastinal adenopathy, I do not see significant mediastinal nodes some shotty AP window nodes are obvious and pretracheal nodes. No obvious filling defects consistent with pulmonary emboli. ASSESSMENT AND PLAN: We have a middle-aged gentleman with recently diagnosed liver cancer and with pneumonia/pneumonitis I cannot rule out another atypical process going on in there. From a respiratory standpoint, we will continue current therapies. I will deploy bilevel positive air pressure ventilation therapy at bedtime. I will also treat this like a COPD acute exacerbation and probably start systemic steroids on him. I would need some more details in terms of his initial diagnosis before consideration for a bronchoscopies made. I will place a PPD skin test. Sputum will be sent for cytology, ____, AFB and fungal stains of ___ cytology. His CD4 count will be ordered. It is unclear if he had been on chemotherapy at any point, he is appropriately on DVT prophylaxis. He will be placed on GI prophylaxis. Flu and pneumonia vaccination will be per protocol. Thank you very much for the consult. We will follow along and make further recommendations as the picture progresses/becomes clearer. We will keep him on telemetry. JOB# [id number] JIHAN/CHANDRA
[2016-05-31] MEDS ORDERED: MORPHINE IV PRN (23:23)
[2016-06-01] MEDS: DILAUDID IV PRN ×5 (01:51→20:38)
[2016-06-01] MEDS: ZOSYN/NS 3.375GM/50ML 3.375 GM/50 ML BAG IV SCH ×3 (05:07→18:39)
[2016-06-01 07:23] LABS: Hematocrit 32.8 % (35.5-45.6); Hemoglobin 10.7 gm/dl (11.8-15.2); Mean Corpuscular HGB Conc 33 % (32-34); Mean Corpuscular Hemoglobin 27 pg (28-32); Mean Corpuscular Volume 82 fl (84-94); Platelet Count 346 K/mm3 (140-440); Red Blood Count 3.99 M/mm3 (3.65-5.03)
[2016-06-01 07:41] LABS: Anion Gap 21 mmol/L; BUN/Creatinine Ratio 27.77; Blood Urea Nitrogen 25 mg/dL (9-20); Calcium 8.3 mg/dL (8.4-10.2); Carbon Dioxide 20 mmol/L (22-30); Chloride 99.9 mmol/L (98-107); Glucose 135 mg/dL (75-100); Potassium 4.6 mmol/L (3.6-5.0); Sodium 136 mmol/L (137-145)
[2016-06-01 07:44] LABS: Red Cell Distribution Width 21.6 % (13.2-15.2)
[2016-06-01] MEDS: PULMICORT IH SCH ×2 (07:44→20:39)
[2016-06-01] MEDS: DUONEB 0.5 MG-3 MG/3 ML SOLN IH SCH ×3 (07:45→20:39)
--- NOTE | 2016-06-01 08:33 | Progress Note ---
Assessment and Plan (1) Acute hypoxemic respiratory failure - management per pulmonology (2) Pneumonia - on abx per primary and pulmonology (3) Liver cancer -new diagnosis. Patient is unaware of plan for therapy. Oncology consult with Dr. Bravo was requested (4) COPD with acute exacerbation - on Pulmicort inhalations, bronchodilators via nebulizer. Pulmonology to follow (5) CAD s/p PCI 07/25 - Patient is having chest pain similar to chest pain experienced at the time of stent placement. EKG shows normal sinus rhythm with nonspecific STTW changes. continue BB, statin, and DAPT. Recommend maximization of medical therapy at this time, including addition of antianginal medications as blood pressure tolerates. Patient should be on DAPT for 6 more weeks. Further invasive management would be depended on the extent and prognosis of liver cancer. If patient is determined to be a poor candidate for anticoagulation, would not recommend further invasive management. Subjective Date of service: 06/01/16 Interval history: No acute events. Resting comfortably. No chest pain or SOB. Complains of pain from castro. Objective Vital Signs Temp Pulse Pulse Pulse Pulse Resp Resp 06/01/16 07:56 86 24 06/01/16 07:42 87 26 H 06/01/16 05:46 98 F 88 18 06/01/16 04:00 80 06/01/16 00:46 98.2 F 102 H 18 05/31/16 20:25 119 H 05/31/16 20:12 113 H 05/31/16 20:11 98.2 F 111 H 20 05/31/16 18:50 22 05/31/16 16:37 97.2 F L 115 H 20 05/31/16 15:13 21 05/31/16 14:38 119 H 05/31/16 14:10 118 H 05/31/16 13:29 98.8 F 112 H 20 05/31/16 10:00 05/31/16 09:38 98 H 05/31/16 09:18 99 H Resp BP Pulse Ox 06/01/16 07:56 06/01/16 07:42 95 06/01/16 05:46 140/74 94 06/01/16 04:00 06/01/16 00:46 122/82 94 05/31/16 20:25 20 05/31/16 20:12 20 96 05/31/16 20:11 137/81 95 05/31/16 18:50 05/31/16 16:37 130/73 98 05/31/16 15:13 05/31/16 14:38 20 05/31/16 14:10 21 05/31/16 13:29 127/76 89 05/31/16 10:00 87 05/31/16 09:38 24 05/31/16 09:18 20 - Physical Examination HEENT: Positive: PERRL, EOMI Neck: Positive: neck supple Neuro: Positive: Grossly Intact Extremities: Present: normal - Labs and Meds Coagulation 05/31/16 Range/Units 11:50 PT 14.7 (12.2-14.9) Sec. INR 1.16 H (0.87-1.13) APTT 30.1 (24.2-36.6) Sec. CBC 06/01/16 Range/Units 06:33 WBC 17.0 H (4.5-11.0) K/mm3 RBC 3.99 (3.65-5.03) M/mm3 Hgb 10.7 L (11.8-15.2) gm/dl Hct 32.8 L (35.5-45.6) % Plt Count 346 (140-440) K/mm3 Comprehensive Metabolic Panel 06/01/16 Range/Units 06:33 Sodium 136 L (137-145) mmol/L Potassium 4.6 (3.6-5.0) mmol/L Chloride 99.9 (98-107) mmol/L Carbon Dioxide 20 L (22-30) mmol/L BUN 25 H (9-20) mg/dL Creatinine 0.9 (0.8-1.5) mg/dL Glucose 135 H (75-100) mg/dL Calcium 8.3 L (8.4-10.2) mg/dL
[2016-06-01 09:30] LABS: Anisocytosis 1+; Basophils % (Manual) 0 % (0.0-1.8); Blastocytes % (Manual) 0 %; Eosinophils % (Manual) 0 % (0.0-4.3); Hypochromasia 1+; Poikilocytosis 1+; Polychromasia 1+; Target Cells 1+
[2016-06-01 09:31] LABS: Diff Status Complete; Microcytosis Few
[2016-06-01] MEDS: LOPRESSOR PO SCH ×2 (11:56→21:55)
[2016-06-01] MEDS: IMDUR PO SCH (11:56)
[2016-06-01] MEDS: PLAVIX PO SCH (11:57)
[2016-06-01] MEDS: ZESTRIL PO SCH (11:58)
[2016-06-01] MEDS: PEPCID PO SCH (11:58)
[2016-06-01] MEDS ORDERED: APLISOL ID ONE (12:00)
[2016-06-01] MEDS: LEVAQUIN 750MG/150ML 750 MG/150 ML BAG IV SCH (12:39)
--- NOTE | 2016-06-01 12:48 | Progress Note ---
Assessment and Plan Assessment and plan: Right lower lobe pneumonia Acute respiratory failure Sepsis Liver cancer - Patient is treated according to sepsis protocol - Oxygen support - Breathing treatment - Oncology consult appreciated - CTA normal - Continue home medications Prophylaxis - Heparin Disposition -Continue inpatient care History Interval history: Patient was seen and evaluated this morning, Patient is feeling weak and tired. Patient is complaining of SOB. Hospitalist Physical - Physical exam Narrative exam: In mild cardiopulmonary distress. The patient is friable, emaciated. Vital signs as documented. Head exam is unremarkable. No scleral icterus . Neck is without jugular venous distension, thyromegaly, or carotid bruits. Lungs are clear to auscultation. Cardiac exam reveals regular rate and Rhythm. First and second heart sounds normal. No murmurs, rubs or gallops. Abdominal exam reveals distended, soft abdomen Extremities are nonedematous and both femoral and pedal pulses are normal. NIGHT COORDINATOR: Alert and oriented 3. No focal weakness. - Constitutional Vitals: Temp Pulse Resp BP Pulse Ox 98.3 F 100 H 22 120/73 91 06/01/16 11:52 06/01/16 11:52 06/01/16 11:52 06/01/16 11:52 06/01/16 11:52 General appearance: Present: no acute distress Results - Labs CBC & Chem 7: 06/01/16 06:33 06/01/16 06:33 Labs: Laboratory Last Values WBC 17.0 K/mm3 (4.5-11.0) H 06/01/16 06:33 RBC 3.99 M/mm3 (3.65-5.03) 06/01/16 06:33 Hgb 10.7 gm/dl (11.8-15.2) L 06/01/16 06:33 Hct 32.8 % (35.5-45.6) L 06/01/16 06:33 MCV 82 fl (84-94) L 06/01/16 06:33 MCH 27 pg (28-32) L 06/01/16 06:33 MCHC 33 % (32-34) 06/01/16 06:33 RDW 21.6 % (13.2-15.2) H 06/01/16 06:33 Plt Count 346 K/mm3 (140-440) 06/01/16 06:33 Lymph % (Auto) 5.8 % (13.4-35.0) L 05/30/16 14:10 [place] % (Auto) 8.9 % (0.0-7.3) H 05/30/16 14:10 Eos % (Auto) 1.4 % (0.0-4.3) 05/30/16 14:10 Baso % (Auto) 0.8 % (0.0-1.8) 05/30/16 14:10 Lymph # 0.8 K/mm3 (1.2-5.4) L 05/30/16 14:10 [place] # 1.3 K/mm3 (0.0-0.8) H 05/30/16 14:10 Eos # 0.2 K/mm3 (0.0-0.4) 05/30/16 14:10 Baso # 0.1 K/mm3 (0.0-0.1) 05/30/16 14:10 Add Manual Diff Complete 06/01/16 06:33 Total Counted 100 06/01/16 06:33 Seg Neutrophils % Consumer Services Consultant 06/01/16 06:33 Seg Neuts % (Manual) 98.0 % (40.0-70.0) H 06/01/16 06:33 Band Neutrophils % 0 % 06/01/16 06:33 Lymphocytes % (Manual) 1.0 % (13.4-35.0) L 06/01/16 06:33 Reactive Lymphs % (Man) 0 % 06/01/16 06:33 Monocytes % (Manual) 1.0 % (0.0-7.3) 06/01/16 06:33 Eosinophils % (Manual) 0 % (0.0-4.3) 06/01/16 06:33 Basophils % (Manual) 0 % (0.0-1.8) 06/01/16 06:33 Metamyelocytes % 0 % 06/01/16 06:33 Myelocytes % 0 % 06/01/16 06:33 Promyelocytes % 0 % 06/01/16 06:33 Blast Cells % 0 % 06/01/16 06:33 Nucleated RBC % Not Reportable 06/01/16 06:33 Seg Neutrophils # 12.1 K/mm3 (1.8-7.7) H 05/30/16 14:10 Seg Neutrophils # Man 16.7 K/mm3 (1.8-7.7) H 06/01/16 06:33 Band Neutrophils # 0.0 K/mm3 06/01/16 06:33 Lymphocytes # (Manual) 0.2 K/mm3 (1.2-5.4) L 06/01/16 06:33 Abs React Lymphs (Man) 0.0 K/mm3 06/01/16 06:33 Monocytes # (Manual) 0.2 K/mm3 (0.0-0.8) 06/01/16 06:33 Eosinophils # (Manual) 0.0 K/mm3 (0.0-0.4) 06/01/16 06:33 Basophils # (Manual) 0.0 K/mm3 (0.0-0.1) 06/01/16 06:33 Metamyelocytes # 0.0 K/mm3 06/01/16 06:33 Myelocytes # 0.0 K/mm3 06/01/16 06:33 Promyelocytes # 0.0 K/mm3 06/01/16 06:33 Blast Cells # 0.0 K/mm3 06/01/16 06:33 WBC Morphology Not Reportable 06/01/16 06:33 Hypersegmented Neuts Not Reportable 06/01/16 06:33 Hyposegmented Neuts Not Reportable 06/01/16 06:33 Hypogranular Neuts Not Reportable 06/01/16 06:33 Smudge Cells Not Reportable 06/01/16 06:33 Toxic Granulation Not Reportable 06/01/16 06:33 Toxic Vacuolation Not Reportable 06/01/16 06:33 Dohle Bodies Not Reportable 06/01/16 06:33 Pelger-Huet Anomaly Not Reportable 06/01/16 06:33 Irving Rods Not Reportable 06/01/16 06:33 Platelet Estimate Appears normal 06/01/16 06:33 Clumped Platelets Not Reportable 06/01/16 06:33 Plt Clumps, EDTA Not Reportable 06/01/16 06:33 Large Platelets Not Reportable 06/01/16 06:33 Giant Platelets Not Reportable 06/01/16 06:33 Platelet Satelliting Not Reportable 06/01/16 06:33 Plt Morphology Comment Not Reportable 06/01/16 06:33 RBC Morphology Not Reportable 06/01/16 06:33 Dimorphic RBCs Not Reportable 06/01/16 06:33 Polychromasia 1+ 06/01/16 06:33 Hypochromasia 1+ 06/01/16 06:33 Poikilocytosis 1+ 06/01/16 06:33 Anisocytosis 1+ 06/01/16 06:33 Microcytosis Few 06/01/16 06:33 Macrocytosis Not Reportable 06/01/16 06:33 Spherocytes Not Reportable 06/01/16 06:33 Pappenheimer Bodies Not Reportable 06/01/16 06:33 Sickle Cells Not Reportable 06/01/16 06:33 Target Cells 1+ 06/01/16 06:33 Tear Drop Cells Not Reportable 06/01/16 06:33 Ovalocytes Not Reportable 06/01/16 06:33 Helmet Cells Not Reportable 06/01/16 06:33 [place] Bodies Not Reportable 06/01/16 06:33 [place] Rings Not Reportable 06/01/16 06:33 Kal Cells Not Reportable 06/01/16 06:33 Bite Cells Not Reportable 06/01/16 06:33 Crenated Cell Not Reportable 06/01/16 06:33 Elliptocytes Not Reportable 06/01/16 06:33 Acanthocytes (Spur) Not Reportable 06/01/16 06:33 Rouleaux Not Reportable 06/01/16 06:33 Hemoglobin C Crystals Not Reportable 06/01/16 06:33 Schistocytes Not Reportable 06/01/16 06:33 Malaria parasites Not Reportable 06/01/16 06:33 Carlos Bodies Not Reportable 06/01/16 06:33 Hem Pathologist Commnt No 06/01/16 06:33 PT 14.7 Sec. (12.2-14.9) 05/31/16 11:50 INR 1.16 (0.87-1.13) H 05/31/16 11:50 APTT 30.1 Sec. (24.2-36.6) 05/31/16 11:50 POC ABG pH 7.458 (7.35-7.45) H 05/30/16 19:01 POC ABG pCO2 26.0 (35-45) L 05/30/16 19:01 POC ABG pO2 48 (80-105) L 05/30/16 19:01 POC ABG HCO3 18.4 05/30/16 19:01 POC ABG Total CO2 19 05/30/16 19:01 POC ABG O2 Sat 86 05/30/16 19:01 POC ABG Base Excess -5 05/30/16 19:01 FiO2 2 % 05/30/16 19:01 Sodium 136 mmol/L (137-145) L 06/01/16 06:33 Potassium 4.6 mmol/L (3.6-5.0) 06/01/16 06:33 Chloride 99.9 mmol/L (98-107) 06/01/16 06:33 Carbon Dioxide 20 mmol/L (22-30) L 06/01/16 06:33 Anion Gap 21 mmol/L 06/01/16 06:33 BUN 25 mg/dL (9-20) H 06/01/16 06:33 Creatinine 0.9 mg/dL (0.8-1.5) 06/01/16 06:33 Estimated GFR > 60 ml/min 06/01/16 06:33 BUN/Creatinine Ratio 27.77 % 06/01/16 06:33 Glucose 135 mg/dL (75-100) H 06/01/16 06:33 Lactic Acid 2.0 mmol/L (0.7-2.0) 06/01/16 06:33 Calcium 8.3 mg/dL (8.4-10.2) L 06/01/16 06:33 Troponin T 0.024 ng/mL (0.00-0.029) 05/30/16 14:10 C-Reactive Protein 16.80 mg/dL (0.00-1.30) H 05/30/16 18:15 NT-Pro-B Natriuret Pep 7293 pg/mL (0-900) H 05/30/16 18:15
[2016-06-01] MEDS: ZOFRAN IV PRN (14:10)
--- NOTE | 2016-06-01 15:12 | Progress Note ---
Assessment and Plan - Patient Problems (1) Acute hypoxemic respiratory failure Current Visit: Yes Status: Acute Plan to address problem: - continue bronchodilators and pulmonary toilet - deploy qhs BIPAP - continue empiric AB's for pneumonia - wean oxygen to keep sats > 94% - continue aspiration precautions (2) COPD with acute exacerbation Current Visit: Yes Status: Acute Plan to address problem: - continue systemic steroids - other care as above (3) Liver cancer Current Visit: Yes Status: Acute Qualifiers: Liver malignancy type: L Plan to address problem: - per oncology (4) Discharge planning issues Current Visit: No Status: Acute Plan to address problem: - hopefully does not decompensate; unclear if pulmonary process is related to liver CA but atypical imaging for metastatic disease ...hopefully home after recovery Subjective Date of service: 06/01/16 Principal diagnosis: Acute Hypoxemic Respiratory Failure; Acute COPD exacerbation Interval history: Seen and examined at bedside; 24 hour events reviewed; nursing and respiratory care staff consulted; no adverse overnight events reported to me; resting in bed ; family in room; denies acute chest pains or increased SOB; overall looks more comfortable Objective Vital Signs - 12hr 06/01/16 06/01/16 06/01/16 04:00 05:46 07:42 Temperature 98 F Pulse Rate 80 Pulse Rate [ 87 Anterior Bilateral Throughout] Pulse Rate [ 88 Right] Respiratory 18 Rate Respiratory 26 H Rate [Anterior Bilateral Throughout] Blood Pressure 140/74 [Right Arm] O2 Sat by Pulse 94 95 Oximetry 06/01/16 06/01/16 06/01/16 07:56 08:20 11:52 Temperature 97.8 F 98.3 F Pulse Rate Pulse Rate [ 86 Anterior Bilateral Throughout] Pulse Rate [ 102 H 100 H Right] Respiratory 20 22 Rate Respiratory 24 Rate [Anterior Bilateral Throughout] Blood Pressure 129/69 120/73 [Right Arm] O2 Sat by Pulse 100 91 Oximetry 06/01/16 06/01/16 14:23 14:36 Temperature Pulse Rate Pulse Rate [ 85 86 Anterior Bilateral Throughout] Pulse Rate [ Right] Respiratory Rate Respiratory 20 22 Rate [Anterior Bilateral Throughout] Blood Pressure [Right Arm] O2 Sat by Pulse Oximetry Constitutional: no acute distress, alert Eyes: non-icteric ENT: oropharynx moist Neck: supple, no lymphadenopathy Effort: mildly labored Ascultation: Bilateral: diminished breath sounds, rales Cardiovascular: regular rate and rhythm Gastrointestinal: normoactive bowel sounds, soft, non-tender, non-distended Integumentary: normal Extremities: no cyanosis, no edema, pink and warm, pulses normal Neurologic: normal mental status, non-focal exam, pupils equal and round, motor strength normal and Psychiatric: mood appropriate, affect normal CBC and BMP: 06/02/16 06:11 06/02/16 06:11 ABG, PT/INR, D-dimer: ABG POC ABG pH 7.458 (7.35-7.45) H 05/30/16 19:01 POC ABG pCO2 26.0 (35-45) L 05/30/16 19:01 POC ABG pO2 48 (80-105) L 05/30/16 19:01 POC ABG HCO3 18.4 05/30/16 19:01 POC ABG Total CO2 19 05/30/16 19:01 POC ABG O2 Sat 86 05/30/16 19:01 PT/INR, D-dimer PT 14.7 Sec. (12.2-14.9) 05/31/16 11:50 INR 1.16 (0.87-1.13) H 05/31/16 11:50 Abnormal lab findings: Abnormal Labs 05/30/16 05/31/16 05/31/16 23:08 04:00 04:00 WBC 12.3 H Hgb Hct MCV 83 L MCH 27 L RDW 21.4 H Seg Neuts % (Manual) 90.0 H Lymphocytes % (Manual) 4.0 L Seg Neutrophils # Man 11.1 H Lymphocytes # (Manual) 0.5 L INR Sodium 136 L Carbon Dioxide 19 L BUN 22 H Glucose 147 H Lactic Acid 2.8 H* Calcium 8.3 L 05/31/16 05/31/16 06/01/16 11:50 11:50 06:33 WBC 17.0 H Hgb 10.7 L Hct 32.8 L MCV 82 L MCH 27 L RDW 21.6 H Seg Neuts % (Manual) 98.0 H Lymphocytes % (Manual) 1.0 L Seg Neutrophils # Man 16.7 H Lymphocytes # (Manual) 0.2 L INR 1.16 H Sodium Carbon Dioxide BUN Glucose Lactic Acid 4.9 H* Calcium 06/01/16 06:33 WBC Hgb Hct MCV MCH RDW Seg Neuts % (Manual) Lymphocytes % (Manual) Seg Neutrophils # Man Lymphocytes # (Manual) INR Sodium 136 L Carbon Dioxide 20 L BUN 25 H Glucose 135 H Lactic Acid Calcium 8.[address] scan - chest: image reviewed
--- NOTE | 2016-06-01 18:09 | Consultation ---
History of Present Illness - Reason for Consult Consult date: 06/01/16 - History of Present Illness The patient is a 60-year-old male with a history of COPD, HTN, CAD BPH and recently diagnosed liver cancer, who presents for evaluation of dyspnea and cough. The patient reports 2 weeks of progressive dyspnea and cough, dyspnea severe for the past one day, constant, exacerbated with exertion and coughing. He states that his cough has been productive of rivero sputum. He also complains of on and off chest pain since yesterday, 08/18 in severity, midsternal, aching in quality, exacerbated with coughing and breathing The patient denies fever, trauma to the chest wall, hemoptysis, unilateral leg swelling, recent immobilization, history of DVT or PE. Upon further workup he was noted to have an acute right middle and lower lobe pneumonia and is admitted for further management Past History Past Medical History: arthritis, CAD, cancer (apparently was diagnosed with liver cancer 1 week ago and his oncologist is Dr. Bravo), COPD, hypertension, hyperlipidemia Past Surgical History: arthroscopy (bilateral rotator cuff repair), total knee replacement, PTCA (with stent), Other (left nephrectomy) Social history: no significant social history (he quit smoking one year ago but apparently still smokes once in a while) Family history: no significant family history on antibiotic on PLAVIX called to see pt due to unable to urinate, nurse cath yesterday with no urine return pt with Abd & pelvic pain, hx of AAA per ex (Cirera Dial------at bedside) [address] tip cath place over wir----400cc blood tinged urine--irrigates well A/P retention now with castro abd pain &AAA (vitals have been stable) CTAP Past History Past Medical History: arthritis, CAD, cancer (apparently was diagnosed with liver cancer 1 week ago and his oncologist is Dr. Bravo), COPD, hypertension, hyperlipidemia Past Surgical History: arthroscopy (bilateral rotator cuff repair), total knee replacement, PTCA (with stent), Other (left nephrectomy) Social history: no significant social history (he quit smoking one year ago but apparently still smokes once in a while) Family history: no significant family history Medications and Allergies Allergies Allergy/AdvReac Type Severity Reaction Status Date / Time codeine AdvReac Rash Verified 08/17/15 10:45 Home Medications Medication Instructions Recorded Confirmed Last Taken Type Famotidine [Pepcid] 20 mg PO QDAY #30 tablet 08/19/14 05/30/16 08/18/15 05:59 Rx Ipratropium/Albuterol Sulfate 1 ampul IH Q8HRT #1 mo 08/19/14 05/30/16 08/18/15 05:59 Rx [Duoneb 0.5 mg-3 mg/3 ml Soln] Clopidogrel [Plavix] 75 mg PO QDAY #30 tablet 08/19/15 05/30/16 Unknown Rx Lisinopril [Zestril TAB] 5 mg PO QDAY #30 tablet 08/19/15 05/30/16 Unknown Rx Metoprolol [Lopressor TAB] 50 mg PO BID #60 tablet 08/19/15 05/30/16 Unknown Rx Simvastatin [Zocor TAB] 40 mg PO QHS #30 tablet 08/19/15 05/30/16 Unknown Rx Zolpidem [Ambien] 5 mg PO QHS PRN #15 tablet 08/19/15 05/30/16 Unknown Rx oxyCODONE [Roxicodone TAB] 5 mg PO Q6H PRN #30 tablet 08/19/15 05/30/16 Unknown Rx traMADol [Ultram 50 MG tab] 50 mg PO Q8H PRN #30 tablet 08/19/15 05/30/16 Unknown Rx HYDROcodone/APAP 5-325 [[place] 1 tab PO Q6H PRN 05/30/16 05/30/16 Unknown History 5-325 mg TAB] Omeprazole 20 mg PO DAILY 05/30/16 05/30/16 Unknown History Active Meds: Active Medications Acetaminophen (Tylenol) 650 mg PO Q4H PRN PRN Reason: Pain MILD(1-3)/Fever >100.5/[place] Last Admin: 05/31/16 21:24 Dose: 650 mg Albuterol/Ipratropium (Duoneb 0.5 Mg-3 Mg/3 Ml Soln) 1 ampul IH TIDRT [facility] Last Admin: 06/01/16 14:26 Dose: 1 ampul Bisacodyl (Dulcolax) 10 mg [place] QDAY PRN PRN Reason: Constipation unrelieved by MOM Budesonide (Pulmicort) 0.5 mg IH Q12HRT [facility] Last Admin: 06/01/16 07:44 Dose: 0.5 mg Clopidogrel Bisulfate (Plavix) 75 mg PO QDAY [facility] Last Admin: 06/01/16 11:57 Dose: 75 mg Enoxaparin Sodium (Lovenox) 40 mg SUB-Q QDAY@2200 [facility] Last Admin: 05/31/16 21:25 Dose: 40 mg Famotidine (Pepcid) 20 mg PO QDAY [facility] Last Admin: 06/01/16 11:58 Dose: 20 mg Hydromorphone HCl (Dilaudid) 1 mg IV Q4H PRN PRN Reason: Pain , Severe (7-10) Last Admin: 06/01/16 16:26 Dose: 1 mg Piperacillin Sod/Tazobactam Sod (Zosyn/Ns 3.375gm/50ml) 3.375 gm in 50 mls @ 100 mls/hr IV Q6HR [facility] Last Admin: 06/01/16 12:01 Dose: 100 mls/hr Levofloxacin/Dextrose (Levaquin 750mg/150ml) 750 mg in 150 mls @ 100 mls/hr IV Q24HR [facility] PRN Reason: Protocol Last Admin: 06/01/16 12:39 Dose: 100 mls/hr Isosorbide Mononitrate (Imdur) 30 mg PO QDAY [facility] Last Admin: 06/01/16 11:56 Dose: 30 mg Lisinopril (Zestril) 5 mg PO QDAY [facility] Last Admin: 06/01/16 11:58 Dose: 5 mg Magnesium Hydroxide (Milk Of Magnesia) 30 ml PO Q4H PRN PRN Reason: Constipation Methylprednisolone Sodium Succinate (Solu-Medrol) 40 mg IV Q8H [facility] Last Admin: 06/01/16 12:22 Dose: 40 mg Metoprolol Tartrate (Lopressor) 25 mg PO BID [facility] Last Admin: 06/01/16 11:56 Dose: 25 mg Ondansetron HCl (Zofran) 4 mg IV Q8H PRN PRN Reason: N/V unrelieved by Reglan Last Admin: 06/01/16 14:10 Dose: 4 mg Simvastatin (Zocor) 40 mg PO QHS [facility] Last Admin: 05/31/16 21:25 Dose: 40 mg Zolpidem Tartrate (Ambien) 5 mg PO QHS PRN PRN Reason: Sleep Last Admin: 05/31/16 02:07 Dose: 5 mg Exam - Constitutional Vitals: Temp Pulse Resp BP Pulse Ox 98.3 F 86 22 120/73 91 06/01/16 11:52 06/01/16 14:36 06/01/16 14:36 06/01/16 11:52 06/01/16 11:52 Results - Labs CBC & Chem 7: 06/01/16 06:33 06/01/16 06:33 Labs: Abnormal lab results 06/01/16 06/01/16 Range/Units 06:33 06:33 WBC 17.0 H (4.5-11.0) K/mm3 Hgb 10.7 L (11.8-15.2) gm/dl Hct 32.8 L (35.5-45.6) % MCV 82 L (84-94) fl MCH 27 L (28-32) pg RDW 21.6 H (13.2-15.2) % Seg Neuts % (Manual) 98.0 H (40.0-70.0) % Lymphocytes % (Manual) 1.0 L (13.4-35.0) % Seg Neutrophils # Man 16.7 H (1.8-7.7) K/mm3 Lymphocytes # (Manual) 0.2 L (1.2-5.4) K/mm3 Sodium 136 L (137-145) mmol/L Carbon Dioxide 20 L (22-30) mmol/L BUN 25 H (9-20) mg/dL Glucose 135 H (75-100) mg/dL Calcium 8.3 L (8.4-10.2) mg/dL
--- NOTE | 2016-06-01 19:53 | Cat Scan Report ---
FINAL REPORT EXAM: CT ABDOMEN PELVIS WO CON HISTORY: abd pain TECHNIQUE: Spiral CT scanning of the abdomen and pelvis. No oral or IV contrast administered. Multiplanar reformations. PRIORS: CTA chest, 31 May 2016. FINDINGS: Abdomen: Examination limited due to lack of contrast administration. Lung bases evaluated on CTA chest examination 1 day previous. Please see corresponding report. Small amount of free fluid noted in the upper abdomen primarily around the liver. Small gallstones noted in the gallbladder neck, with mild gallbladder wall thickening and some pericholecystic fluid. Probable small diverticulum off the medial aspect of 2nd portion of duodenum. Liver demonstrates somewhat heterogeneous attenuation pattern and contains multiple, ill-defined hypodensities scattered in both right and left lobes, largest in right lobe measuring approximately 3.6 x 2.9 cm. Spleen grossly unremarkable. Pancreas grossly unremarkable. Mildly heterogeneous, striated attenuation in right kidney, nonspecific. Multiple punctate calcifications in the right kidney without significant hydronephrosis or abnormal perinephric fluid collection. Left kidney surgically absent. Multiloculated iso-hyperdense foci or collections extend along left retroperitoneum from left renal fossa to pelvic inlet level difficult to measure, but largest focus measuring approximately 6.5 x 6.5 cm in cross-sectional diameter and 11 cm in craniocaudal dimension. This also parallels and abuts the adjacent abdominal aorta. Asymmetric enlargement and similar cystic change within the left psoas muscle inferiorly measuring up to 3 x 3 cm in maximal cross-sectional diameter. Mild nodularity in right adrenal gland measuring 1 cm. Diffuse enlargement or hyperplastic change in left adrenal gland, nonspecific. Pelvis: Variable bowel wall and fold thickening noted in the ascending colon with some pericolonic fat stranding may be reactive. Mild diverticular change in the sigmoid colon. No evidence of mechanical bowel obstruction. Probable appendix partially visualized and grossly unremarkable. Moderate amount of free fluid in the pelvis. No loculated fluid collection. Diffuse aortoiliac calcification. Fusiform aneurysmal dilatation of the infrarenal abdominal aorta measuring 3.8 x 4.2 cm in maximal cross-sectional diameter and 7 cm in craniocaudal dimension tapering at the bifurcation. Loss of normal fat planes along the retroperitoneum and multiple enlarged lymph nodes or adenopathy in both aortocaval and left para-aortic regions, as well as the central mesentery. Yanez catheter balloon noted within decompressed urinary bladder. Degenerative changes in thoracolumbar spine. Diffusely heterogeneous mineralization pattern, with both cystic and sclerotic foci scattered in the thoracolumbar spine, most pronounced in the L2 vertebral body level. IMPRESSION: 1. Ill-defined, hypodense foci and lesions scattered in the liver suspicious for neoplastic or metastatic disease. 2. Absent left kidney and multiloculated, iso-hyperdense foci or collections along the left retroperitoneum and psoas region may represent infectious or inflammatory process, hemorrhagic foci or hematomas versus neoplastic or metastatic disease, including lymphoma. Extensive retroperitoneal adenopathy also noted. 3. Findings suspicious for osseous metastatic disease in thoracolumbar spine. 4. Findings which may be reactive secondary to free intraperitoneal fluid versus nonspecific postinflammatory change in the right colon or colitis. 5. AAA. 6. Cholelithiasis. 7. Punctate, nonobstructing right renal calcifications. 8. Moderate, diffuse amount of free fluid in abdomen and pelvis. Unexpected nonemergent findings. [facility] chief of field operations to notify client.
--- NOTE | 2016-06-01 20:53 | Event Note ---
Date: 06/01/16 retention now with castro in good postion abd pain &AAA (vitals have been stable) CTAP - s/p left nephrectomy castro in good postion free air in abd - informed hospitalist to consult general surgery
--- NOTE | 2016-06-01 21:29 | Event Note ---
Date: 06/01/16 Patient was c/o of generalized pain in the morning that was controlled by dilaudid. later in the afternoon patient was complaining pain in the groin and penile area and Dr Geller was consulted and he did CT abdomen with contrast. Dr Geller called me at 20:49 and told me about the CT scan result. Free air in the Abdomen. I called the nurse and Yimi Rios, to put a consult for General surgery and to call the general surgeon and she said she will call them. She told me she notified the work station support specialist hospitalist Dr Wise. I have talked with his ex- on the phone who was with the patient in the patient's room.
[2016-06-01] MEDS: ZOCOR PO SCH (21:52)
[2016-06-01] MEDS: AMBIEN PO PRN (21:52)
[2016-06-01] MEDS: LOVENOX SUB-Q SCH (21:52)
[2016-06-02] MEDS: ZOSYN/NS 3.375GM/50ML 3.375 GM/50 ML BAG IV SCH ×5 (00:01→23:12)
--- NOTE | 2016-06-02 02:49 | Consultation ---
REASON FOR CONSULTATION: Voiding dysfunction. REFERRING PHYSICIAN: Chance Aragon MD HISTORY OF PRESENT ILLNESS: This patient is a 60-year-old gentleman known to our service, status post left nephrectomy for cancer [address] Jarvis and Dr. Schuster. The patient has a history of COPD, hypertension, coronary artery disease, BPH, recent diagnosis of liver cancer who presented to the Emergency Room with shortness of breath over the last 2 weeks. He was admitted to the hospital for evaluation. While in the hospital, he has been unable to urinate, attempts at catheterization by nursing staff was unsuccessful yesterday and his pain has worsened and ability to urinate is worsened. At the bedside was his ex-, Roz Anguiano. PAST MEDICAL HISTORY: As above. PAST SURGICAL HISTORY: Bilateral rotator cuff, knee replacement, cardiac stent, left nephrectomy. The patient is also on Plavix. MEDICATIONS: In the hospital, as I said Plavix, Zestril, Lopressor, Zocor, Ambien, Codeine, Ultram. PHYSICAL EXAMINATION: GENERAL: He is alert and oriented. VITAL SIGNS: Temperature 98.3, respirations are 22, pulse 86, BP 120/73. BACK: No CVA tenderness. ABDOMEN: Somewhat protuberant, but no peritoneal signs. Could not palpate his bladder. Normal phallus. Testes descended bilaterally. LABORATORY DATA: BUN and creatinine 25 and 0.9 respectively. Hemoglobin and hematocrit of 10 and 32 respectively, white count 17,000, platelets 346,000. Under sterile conditions, 0.035 Glidewire was placed in the urethra after lidocaine Uro-Jet 22-Pashto lower [place] tip catheter was passed over the wire with blood-tinged urine was actually dark and irrigated well approximately 400 mL urine returned. ASSESSMENT: Urinary retention, abdominal pain, multiple medical problems, history of abdominal aneurysm. We will get a noncontrast CT abdomen and pelvis for further evaluation. JOB# [id number] [facility]/CHANDRA
[2016-06-02] MEDS: DILAUDID IV PRN (05:08)
[2016-06-02 07:00] LABS: Hematocrit 32.9 % (35.5-45.6); Hemoglobin 10.3 gm/dl (11.8-15.2); Mean Corpuscular HGB Conc 31 % (32-34); Mean Corpuscular Hemoglobin 27 pg (28-32); Platelet Count 405 K/mm3 (140-440); Red Blood Count 3.82 M/mm3 (3.65-5.03); White Blood Count 18.9 K/mm3 (4.5-11.0)
[2016-06-02 07:03] LABS: Red Cell Distribution Width 22.7 % (13.2-15.2)
[2016-06-02 07:05] LABS: Mean Corpuscular Volume 84 fl (84-94)
[2016-06-02 07:18] LABS: BUN/Creatinine Ratio 26.25; Calcium 8.4 mg/dL (8.4-10.2); Chloride 97.9 mmol/L (98-107); Potassium 5.1 mmol/L (3.6-5.0)
[2016-06-02] MEDS: DUONEB 0.5 MG-3 MG/3 ML SOLN IH SCH ×3 (07:25→20:11)
[2016-06-02] MEDS: PULMICORT IH SCH ×2 (07:25→20:11)
--- NOTE | 2016-06-02 07:55 | Event Note ---
Date: 06/02/16 I was called last night about this patient as the Gen Surgeon insulation nozzleman, Cr. Geller (Urology) documented in his note that patient has "Free Air", I personally reviewed the CT abd pelvis myself, and reviewed the formal written report and I do not see any evidence of free air, only free fluid which an entirely different matter. I reviewed the CT with Dr. Mendoza (Radiology) this morning and he does NOT see any free air, just free fluid and advanced stage IV malignancy. I really have nothing to offer this patient at present time. I attempted to contact Dr. Wise who the nurse stated was the Hospitalist insulation nozzleman but he did not return my call. I did discuss this with the nurse taking care of the patient last night.In my opinion Hospice evaluation seems a consideration.
[2016-06-02] MEDS ORDERED: NACL 0.9% 1000 ML 1,000 ML IV ONE (09:00)
[2016-06-02 09:20] LABS: Anisocytosis 1+; Basophils % (Manual) 0 % (0.0-1.8); Blastocytes % (Manual) 0 %; Eosinophils % (Manual) 0 % (0.0-4.3); Polychromasia Few
[2016-06-02 09:21] LABS: Diff Status Complete; Target Cells Rare
[2016-06-02] MEDS: LEVAQUIN 750MG/150ML 750 MG/150 ML BAG IV SCH (09:42)
[2016-06-02] MEDS: PLAVIX PO SCH (09:43)
[2016-06-02] MEDS: PEPCID PO SCH (09:43)
[2016-06-02] MEDS: ZESTRIL PO SCH (09:43)
[2016-06-02] MEDS: LOPRESSOR PO SCH ×2 (09:44→22:12)
[2016-06-02] MEDS: IMDUR PO SCH (09:45)
--- NOTE | 2016-06-02 10:50 | Progress Note ---
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 Subjective Date of service: 06/02/16 Principal diagnosis: Acute Hypoxemic Respiratory Failure; Acute COPD exacerbation Interval history: Venturi mask in place. No distress noted. Objective Vital Signs Temp Pulse Pulse Pulse Resp Resp BP 06/02/16 08:06 102 H 06/02/16 08:00 97.4 F L 104 H 20 06/02/16 07:41 97 H 22 06/02/16 07:22 102 H 24 06/02/16 04:00 97.6 F 100 H 113 H 20 06/02/16 01:56 97.5 F L 115 H 24 06/01/16 21:55 93/60 06/01/16 21:25 95 H 18 06/01/16 20:00 97.6 F 99 H 88 22 18 06/01/16 18:00 97.5 F L 90 18 06/01/16 16:00 89 06/01/16 14:36 86 22 06/01/16 14:23 85 20 06/01/16 11:52 98.3 F 100 H 22 BP Pulse Ox 06/02/16 08:06 06/02/16 08:00 67/43 95 06/02/16 07:41 06/02/16 07:22 93 06/02/16 04:00 89/50 90 06/02/16 01:56 110/62 89 06/01/16 21:55 06/01/16 21:25 06/01/16 20:00 93/60 98 06/01/16 18:00 100/64 92 06/01/16 16:00 06/01/16 14:36 06/01/16 14:23 06/01/16 11:52 120/73 91 - Physical Examination General: No Apparent Distress HEENT: Positive: PERRL Neck: Positive: neck supple Cardiac: Positive: Reg Rate and Rhythm Lungs: Positive: Decreased Breath Sounds Neuro: Positive: Grossly Intact - Labs and Meds CBC 06/02/16 Range/Units 06:11 WBC 18.9 H (4.5-11.0) K/mm3 RBC 3.82 (3.65-5.03) M/mm3 Hgb 10.3 L (11.8-15.2) gm/dl Hct 32.9 L (35.5-45.6) % Plt Count 405 (140-440) K/mm3 Comprehensive Metabolic Panel 06/02/16 Range/Units 06:11 Sodium 137 (137-145) mmol/L Potassium 5.1 H (3.6-5.0) mmol/L Chloride 97.9 L (98-107) mmol/L Carbon Dioxide 18 L (22-30) mmol/L BUN 42 H (9-20) mg/dL Creatinine 1.6 H D (0.8-1.5) mg/dL Glucose 127 H (75-100) mg/dL Calcium 8.4 (8.4-10.2) mg/dL
--- NOTE | 2016-06-02 11:19 | Consultation ---
History of Present Illness - Reason for Consult Consult date: 06/02/16 abdominal aortic aneurysm - History of Present Illness Mr. Anguiano is a 60-year-old male, with an abdominal aortic aneurysm described on recent imaging. He has a medical history significant for metastatic urothelial malignancy, for which he is going to initiate treatment soon. He had a left nephrectomy to address the malignancy several years ago, but there now seems to be significant recurrence in the surgical bed, along with liver metastases. Initiation of chemotherapy depends on treatment of a current pneumonia, which is causing significant shortness of breath. He is uncertain of the history of the aortic aneurysm and states that no one has mentioned this to him previously. Past History Past Medical History: arthritis, CAD, cancer (apparently was diagnosed with liver cancer 1 week ago and his oncologist is Dr. Bravo), COPD, hypertension, hyperlipidemia Past Surgical History: arthroscopy (bilateral rotator cuff repair), total knee replacement, PTCA (with stent), Other (left nephrectomy) Social history: no significant social history (he quit smoking one year ago but apparently still smokes once in a while) Family history: no significant family history Medications and Allergies Allergies Allergy/AdvReac Type Severity Reaction Status Date / Time codeine AdvReac Rash Verified 08/17/15 10:45 Home Medications Medication Instructions Recorded Confirmed Last Taken Type Famotidine [Pepcid] 20 mg PO QDAY #30 tablet 08/19/14 05/30/16 08/18/15 05:59 Rx Ipratropium/Albuterol Sulfate 1 ampul IH Q8HRT #1 mo 08/19/14 05/30/16 08/18/15 05:59 Rx [Duoneb 0.5 mg-3 mg/3 ml Soln] Clopidogrel [Plavix] 75 mg PO QDAY #30 tablet 08/19/15 05/30/16 Unknown Rx Lisinopril [Zestril TAB] 5 mg PO QDAY #30 tablet 08/19/15 05/30/16 Unknown Rx Metoprolol [Lopressor TAB] 50 mg PO BID #60 tablet 08/19/15 05/30/16 Unknown Rx Simvastatin [Zocor TAB] 40 mg PO QHS #30 tablet 08/19/15 05/30/16 Unknown Rx Zolpidem [Ambien] 5 mg PO QHS PRN #15 tablet 08/19/15 05/30/16 Unknown Rx oxyCODONE [Roxicodone TAB] 5 mg PO Q6H PRN #30 tablet 08/19/15 05/30/16 Unknown Rx traMADol [Ultram 50 MG tab] 50 mg PO Q8H PRN #30 tablet 08/19/15 05/30/16 Unknown Rx HYDROcodone/APAP 5-325 [[place] 1 tab PO Q6H PRN 05/30/16 05/30/16 Unknown History 5-325 mg TAB] Omeprazole 20 mg PO DAILY 05/30/16 05/30/16 Unknown History Active Meds: Active Medications Acetaminophen (Tylenol) 650 mg PO Q4H PRN PRN Reason: Pain MILD(1-3)/Fever >100.5/[place] Last Admin: 05/31/16 21:24 Dose: 650 mg Albuterol/Ipratropium (Duoneb 0.5 Mg-3 Mg/3 Ml Soln) 1 ampul IH TIDRT [facility] Last Admin: 06/02/16 07:25 Dose: 1 ampul Bisacodyl (Dulcolax) 10 mg [place] QDAY PRN PRN Reason: Constipation unrelieved by MOM Budesonide (Pulmicort) 0.5 mg IH Q12HRT [facility] Last Admin: 06/02/16 07:25 Dose: 0.5 mg Clopidogrel Bisulfate (Plavix) 75 mg PO QDAY [facility] Last Admin: 06/02/16 09:43 Dose: 75 mg Enoxaparin Sodium (Lovenox) 40 mg SUB-Q QDAY@2200 [facility] Last Admin: 06/01/16 21:52 Dose: 40 mg Famotidine (Pepcid) 20 mg PO QDAY [facility] Last Admin: 06/02/16 09:43 Dose: 20 mg Hydromorphone HCl (Dilaudid) 1 mg IV Q4H PRN PRN Reason: Pain , Severe (7-10) Last Admin: 06/02/16 05:08 Dose: 1 mg Piperacillin Sod/Tazobactam Sod (Zosyn/Ns 3.375gm/50ml) 3.375 gm in 50 mls @ 100 mls/hr IV Q6HR [facility] Last Admin: 06/02/16 05:08 Dose: 100 mls/hr Levofloxacin/Dextrose (Levaquin 750mg/150ml) 750 mg in 150 mls @ 100 mls/hr IV Q24HR [facility] PRN Reason: Protocol Last Admin: 06/02/16 09:42 Dose: 100 mls/hr Isosorbide Mononitrate (Imdur) 30 mg PO QDAY [facility] Last Admin: 06/02/16 09:45 Dose: Not Given Lisinopril (Zestril) 5 mg PO QDAY [facility] Last Admin: 06/02/16 09:43 Dose: Not Given Magnesium Hydroxide (Milk Of Magnesia) 30 ml PO Q4H PRN PRN Reason: Constipation Methylprednisolone Sodium Succinate (Solu-Medrol) 40 mg IV Q8H [facility] Last Admin: 06/02/16 03:14 Dose: 40 mg Metoprolol Tartrate (Lopressor) 25 mg PO BID [facility] Last Admin: 06/02/16 09:44 Dose: Not Given Ondansetron HCl (Zofran) 4 mg IV Q8H PRN PRN Reason: N/V unrelieved by Mandeep Last Admin: 06/01/16 14:10 Dose: 4 mg Simvastatin (Zocor) 40 mg PO QHS [facility] Last Admin: 06/01/16 21:52 Dose: 40 mg Zolpidem Tartrate (Ambien) 5 mg PO QHS PRN PRN Reason: Sleep Last Admin: 06/01/16 21:52 Dose: 5 mg Exam - Constitutional Vitals: Temp Pulse Resp BP Pulse Ox 97.4 F L 102 H 20 67/43 95 06/02/16 08:00 06/02/16 08:06 06/02/16 08:00 06/02/16 08:00 06/02/16 08:00 General appearance: Present: mild distress, disheveled - Respiratory Respiratory effort: labored Results - Labs CBC & Chem 7: 06/02/16 06:11 06/02/16 06:11 Labs: Abnormal lab results 06/02/16 06/02/16 Range/Units 06:11 06:11 WBC 18.9 H (4.5-11.0) K/mm3 Hgb 10.3 L (11.8-15.2) gm/dl Hct 32.9 L (35.5-45.6) % MCH 27 L (28-32) pg MCHC 31 L (32-34) % RDW 22.7 H (13.2-15.2) % Seg Neuts % (Manual) 99.0 H (40.0-70.0) % Lymphocytes % (Manual) 0 L (13.4-35.0) % Seg Neutrophils # Man 18.7 H (1.8-7.7) K/mm3 Lymphocytes # (Manual) 0.0 L (1.2-5.4) K/mm3 Potassium 5.1 H (3.6-5.0) mmol/L Chloride 97.9 L (98-107) mmol/L Carbon Dioxide 18 L (22-30) mmol/L BUN 42 H (9-20) mg/dL Creatinine 1.6 H D (0.8-1.5) mg/dL Glucose 127 H (75-100) mg/dL Assessment and Plan Mr. Anguiano is a 60-year-old male with multiple medical issues, with a recently discovered abdominal aortic aneurysm on CT. The maximal cross-sectional dimension of the aneurysm is 4.2 cm. Additionally, he does not report symptoms , including abdominal pain or perceiving a pulsatile abdominal mass. As such, no acute vascular intervention is required at this time. Follow-up imaging can be performed on a yearly basis with ultrasound or CT angiography. Comparison with prior imaging from outside institutions, if available, can be performed as well. Regardless, his pneumonia and metastatic malignancy are more acute/pressing issues which would need to be addressed first, prior to any potential future vascular intervention.
--- NOTE | 2016-06-02 11:53 | Progress Note ---
Assessment and Plan Assessment and plan: Right lower lobe pneumonia Acute respiratory failure Sepsis Liver cancer Hypotension - bolus with normal saline and will check his BP if not improved with IV fluids will consider to transfer to ICU - Patient is treated according to sepsis protocol, was on IV levaquin and WBC is trending up and it could be due to malignancy, will change the antbiotics to vancomycin and Zosyn - Oxygen support, Breathing treatment - Oncology consult appreciated - vascular surgery, Urology and surgery consult appreciated - CT abdomen and pelvis showed retroperitoneal fluid collection patient's prognosis is Poor and discussed with his ex-. Prophylaxis - Heparin Code status - Discuss with Ms Anguiano and she said 1 time CPR and intubation is OK but doesn't want to sustain his life with life support. Disposition -Continue inpatient care History Interval history: Patient was seen and evaluated this morning, Patient is complaining of SOB. He complains pain in the penis, catheterized by Dr Geller. Patient has been taking off his IV line and O2 mask. I put restraints order. I called his ex- Ms Anguiano @[phone] and discussed in detail about the management plan and she agreed with it. Hospitalist Physical - Physical exam Narrative exam: In mild cardiopulmonary distress. The patient is friable, emaciated. Vital signs as documented. Head exam is unremarkable. No scleral icterus . Neck is without jugular venous distension, thyromegaly, or carotid bruits. Lungs are clear to auscultation. Cardiac exam reveals regular rate and Rhythm. First and second heart sounds normal. No murmurs, rubs or gallops. Abdominal exam reveals distended, soft abdomen Extremities are nonedematous and both femoral and pedal pulses are normal. OPERATIONS [employer]ISTS: Alert and oriented 3. He is agitated and taking off the Iv Line and o2 mask. - Constitutional Vitals: Temp Pulse Resp BP Pulse Ox 97.4 F L 102 H 20 67/43 95 06/02/16 08:00 06/02/16 08:06 06/02/16 08:00 06/02/16 08:00 06/02/16 08:00 General appearance: Present: mild distress, disheveled Results - Labs CBC & Chem 7: 06/02/16 06:11 06/02/16 06:11 Labs: Laboratory Last Values WBC 18.9 K/mm3 (4.5-11.0) H 06/02/16 06:11 RBC 3.82 M/mm3 (3.65-5.03) 06/02/16 06:11 Hgb 10.3 gm/dl (11.8-15.2) L 06/02/16 06:11 Hct 32.9 % (35.5-45.6) L 06/02/16 06:11 MCV 84 fl (84-94) 06/02/16 06:11 MCH 27 pg (28-32) L 06/02/16 06:11 MCHC 31 % (32-34) L 06/02/16 06:11 RDW 22.7 % (13.2-15.2) H 06/02/16 06:11 Plt Count 405 K/mm3 (140-440) 06/02/16 06:11 Lymph % (Auto) 5.8 % (13.4-35.0) L 05/30/16 14:10 [place] % (Auto) 8.9 % (0.0-7.3) H 05/30/16 14:10 Eos % (Auto) 1.4 % (0.0-4.3) 05/30/16 14:10 Baso % (Auto) 0.8 % (0.0-1.8) 05/30/16 14:10 Lymph # 0.8 K/mm3 (1.2-5.4) L 05/30/16 14:10 [place] # 1.3 K/mm3 (0.0-0.8) H 05/30/16 14:10 Eos # 0.2 K/mm3 (0.0-0.4) 05/30/16 14:10 Baso # 0.1 K/mm3 (0.0-0.1) 05/30/16 14:10 Add Manual Diff Complete 06/02/16 06:11 Total Counted 100 06/02/16 06:11 Seg Neutrophils % Rn Infusion 06/02/16 06:11 Seg Neuts % (Manual) 99.0 % (40.0-70.0) H 06/02/16 06:11 Band Neutrophils % 0 % 06/02/16 06:11 Lymphocytes % (Manual) 0 % (13.4-35.0) L 06/02/16 06:11 Reactive Lymphs % (Man) 0 % 06/02/16 06:11 Monocytes % (Manual) 1.0 % (0.0-7.3) 06/02/16 06:11 Eosinophils % (Manual) 0 % (0.0-4.3) 06/02/16 06:11 Basophils % (Manual) 0 % (0.0-1.8) 06/02/16 06:11 Metamyelocytes % 0 % 06/02/16 06:11 Myelocytes % 0 % 06/02/16 06:11 Promyelocytes % 0 % 06/02/16 06:11 Blast Cells % 0 % 06/02/16 06:11 Nucleated RBC % Not Reportable 06/02/16 06:11 Seg Neutrophils # 12.1 K/mm3 (1.8-7.7) H 05/30/16 14:10 Seg Neutrophils # Man 18.7 K/mm3 (1.8-7.7) H 06/02/16 06:11 Band Neutrophils # 0.0 K/mm3 06/02/16 06:11 Lymphocytes # (Manual) 0.0 K/mm3 (1.2-5.4) L 06/02/16 06:11 Abs React Lymphs (Man) 0.0 K/mm3 06/02/16 06:11 Monocytes # (Manual) 0.2 K/mm3 (0.0-0.8) 06/02/16 06:11 Eosinophils # (Manual) 0.0 K/mm3 (0.0-0.4) 06/02/16 06:11 Basophils # (Manual) 0.0 K/mm3 (0.0-0.1) 06/02/16 06:11 Metamyelocytes # 0.0 K/mm3 06/02/16 06:11 Myelocytes # 0.0 K/mm3 06/02/16 06:11 Promyelocytes # 0.0 K/mm3 06/02/16 06:11 Blast Cells # 0.0 K/mm3 06/02/16 06:11 WBC Morphology Not Reportable 06/02/16 06:11 Hypersegmented Neuts Not Reportable 06/02/16 06:11 Hyposegmented Neuts Not Reportable 06/02/16 06:11 Hypogranular Neuts Not Reportable 06/02/16 06:11 Smudge Cells Not Reportable 06/02/16 06:11 Toxic Granulation Not Reportable 06/02/16 06:11 Toxic Vacuolation Not Reportable 06/02/16 06:11 Dohle Bodies Not Reportable 06/02/16 06:11 Pelger-Huet Anomaly Not Reportable 06/02/16 06:11 Irving Rods Not Reportable 06/02/16 06:11 Platelet Estimate Appears normal 06/02/16 06:11 Clumped Platelets Not Reportable 06/02/16 06:11 Plt Clumps, EDTA Not Reportable 06/02/16 06:11 Large Platelets Not Reportable 06/02/16 06:11 Giant Platelets Not Reportable 06/02/16 06:11 Platelet Satelliting Not Reportable 06/02/16 06:11 Plt Morphology Comment Not Reportable 06/02/16 06:11 RBC Morphology Not Reportable 06/02/16 06:11 Dimorphic RBCs Not Reportable 06/02/16 06:11 Polychromasia Few 06/02/16 06:11 Hypochromasia Not Reportable 06/02/16 06:11 Poikilocytosis Not Reportable 06/02/16 06:11 Anisocytosis 1+ 06/02/16 06:11 Microcytosis Not Reportable 06/02/16 06:11 Macrocytosis Not Reportable 06/02/16 06:11 Spherocytes Not Reportable 06/02/16 06:11 Pappenheimer Bodies Not Reportable 06/02/16 06:11 Sickle Cells Not Reportable 06/02/16 06:11 Target Cells Rare 06/02/16 06:11 Tear Drop Cells Not Reportable 06/02/16 06:11 Ovalocytes Not Reportable 06/02/16 06:11 Helmet Cells Not Reportable 06/02/16 06:11 Perez-Silex Bodies Not Reportable 06/02/16 06:11 Sparks Rings Not Reportable 06/02/16 06:11 Kal Cells Not Reportable 06/02/16 06:11 Bite Cells Not Reportable 06/02/16 06:11 Crenated Cell Not Reportable 06/02/16 06:11 Elliptocytes Not Reportable 06/02/16 06:11 Acanthocytes (Spur) Not Reportable 06/02/16 06:11 Rouleaux Not Reportable 06/02/16 06:11 Hemoglobin C Crystals Not Reportable 06/02/16 06:11 Schistocytes Not Reportable 06/02/16 06:11 Malaria parasites Not Reportable 06/02/16 06:11 Carlos Bodies Not Reportable 06/02/16 06:11 Hem Pathologist Commnt No 06/02/16 06:11 PT 14.7 Sec. (12.2-14.9) 05/31/16 11:50 INR 1.16 (0.87-1.13) H 05/31/16 11:50 APTT 30.1 Sec. (24.2-36.6) 05/31/16 11:50 POC ABG pH 7.458 (7.35-7.45) H 05/30/16 19:01 POC ABG pCO2 26.0 (35-45) L 05/30/16 19:01 POC ABG pO2 48 (80-105) L 05/30/16 19:01 POC ABG HCO3 18.4 05/30/16 19:01 POC ABG Total CO2 19 05/30/16 19:01 POC ABG O2 Sat 86 05/30/16 19:01 POC ABG Base Excess -5 05/30/16 19:01 FiO2 2 % 05/30/16 19:01 Sodium 137 mmol/L (137-145) 06/02/16 06:11 Potassium 5.1 mmol/L (3.6-5.0) H 06/02/16 06:11 Chloride 97.9 mmol/L (98-107) L 06/02/16 06:11 Carbon Dioxide 18 mmol/L (22-30) L 06/02/16 06:11 Anion Gap 26 mmol/L 06/02/16 06:11 BUN 42 mg/dL (9-20) H 06/02/16 06:11 Creatinine 1.6 mg/dL (0.8-1.5) H D 06/02/16 06:11 Estimated GFR 45 ml/min 06/02/16 06:11 BUN/Creatinine Ratio 26.25 % 06/02/16 06:11 Glucose 127 mg/dL (75-100) H 06/02/16 06:11 Lactic Acid 2.0 mmol/L (0.7-2.0) 06/01/16 06:33 Calcium 8.4 mg/dL (8.4-10.2) 06/02/16 06:11 Troponin T 0.024 ng/mL (0.00-0.029) 05/30/16 14:10 C-Reactive Protein 16.80 mg/dL (0.00-1.30) H 05/30/16 18:15 NT-Pro-B Natriuret Pep 7293 pg/mL (0-900) H 05/30/16 18:15
[2016-06-02] MEDS ORDERED: NACL 0.9% 500 ML 500 ML IV ONE (12:54)
[2016-06-02] MEDS ORDERED: VANCOMYCIN PHARMACY TO DOSE IV SCH (13:00)
[2016-06-02] MEDS ORDERED: VANCOMYCIN 1,500 MG in NACL 0.9% 500 ML 500 ML IV ONE (14:00)
--- NOTE | 2016-06-02 14:09 | Progress Note ---
Assessment and Plan - Patient Problems (1) Acute chest pain Current Visit: Yes Status: Acute (2) Acute hypoxemic respiratory failure Current Visit: Yes Status: Acute (3) Liver cancer Current Visit: Yes Status: Acute Qualifiers: Liver malignancy type: L (4) Pneumonia Current Visit: Yes Status: Acute Qualifiers: Pneumonia type: due to unspecified organism Aspiration pneumonia type: A Laterality: right Lung location: lower lobe of lung Qualified Code(s): J18.9 - Pneumonia, unspecified organism Subjective Date of service: 06/02/16 Principal diagnosis: Acute Hypoxemic Respiratory Failure; Acute COPD exacerbation Objective Vital Signs - 12hr 06/02/16 06/02/16 06/02/16 04:00 07:22 07:41 Temperature 97.6 F Pulse Rate 100 H Pulse Rate [ 102 H 97 H Anterior Bilateral Throughout] Pulse Rate [ 113 H Right] Respiratory 20 Rate Respiratory 24 22 Rate [Anterior Bilateral Throughout] Blood Pressure 89/50 [Right Arm] O2 Sat by Pulse 90 93 Oximetry 06/02/16 06/02/16 06/02/16 08:00 08:06 12:55 Temperature 97.4 F L Pulse Rate 102 H Pulse Rate [ 66 Anterior Bilateral Throughout] Pulse Rate [ 104 H Right] Respiratory 20 Rate Respiratory 20 Rate [Anterior Bilateral Throughout] Blood Pressure 67/43 [Right Arm] O2 Sat by Pulse 95 Oximetry CBC and BMP: 06/02/16 06:11 06/02/16 06:11 ABG, PT/INR, D-dimer: ABG POC ABG pH 7.458 (7.35-7.45) H 05/30/16 19:01 POC ABG pCO2 26.0 (35-45) L 05/30/16 19:01 POC ABG pO2 48 (80-105) L 05/30/16 19:01 POC ABG HCO3 18.4 05/30/16 19:01 POC ABG Total CO2 19 05/30/16 19:01 POC ABG O2 Sat 86 05/30/16 19:01 PT/INR, D-dimer PT 14.7 Sec. (12.2-14.9) 05/31/16 11:50 INR 1.16 (0.87-1.13) H 05/31/16 11:50 Abnormal lab findings: Abnormal Labs 05/30/16 05/31/16 05/31/16 23:08 04:00 04:00 WBC 12.3 H Hgb Hct MCV 83 L MCH 27 L MCHC RDW 21.4 H Seg Neuts % (Manual) 90.0 H Lymphocytes % (Manual) 4.0 L Seg Neutrophils # Man 11.1 H Lymphocytes # (Manual) 0.5 L INR Sodium 136 L Potassium Chloride Carbon Dioxide 19 L BUN 22 H Creatinine Glucose 147 H Lactic Acid 2.8 H* Calcium 8.3 L 05/31/16 05/31/16 06/01/16 11:50 11:50 06:33 WBC 17.0 H Hgb 10.7 L Hct 32.8 L MCV 82 L MCH 27 L MCHC RDW 21.6 H Seg Neuts % (Manual) 98.0 H Lymphocytes % (Manual) 1.0 L Seg Neutrophils # Man 16.7 H Lymphocytes # (Manual) 0.2 L INR 1.16 H Sodium Potassium Chloride Carbon Dioxide BUN Creatinine Glucose Lactic Acid 4.9 H* Calcium 06/01/16 06/02/16 06/02/16 06:33 06:11 06:11 WBC 18.9 H Hgb 10.3 L Hct 32.9 L MCV MCH 27 L MCHC 31 L RDW 22.7 H Seg Neuts % (Manual) 99.0 H Lymphocytes % (Manual) 0 L Seg Neutrophils # Man 18.7 H Lymphocytes # (Manual) 0.0 L INR Sodium 136 L Potassium 5.1 H Chloride 97.9 L Carbon Dioxide 20 L 18 L BUN 25 H 42 H Creatinine 1.6 H D Glucose 135 H 127 H Lactic Acid Calcium 8.3 L
--- NOTE | 2016-06-02 14:53 | XRay Report ---
PORTABLE CHEST INDICATION: Left upper arm PICC insertion. Right chest port. COMPARISON: 05/30/2016 FINDINGS: Portable, frontal chest radiograph demonstrates new left upper extremity PICC tip at the cavoatrial junction. Stable right chest port tip in the right atrium, approximately 4 cm below the cavoatrial junction. Normal cardiomediastinal silhouette. No large pleural effusions or CHF, though approximately 9.5 x 4 cm opacity in the right mid lung peripherally now noted. Some extrinsic artifact. Stable bones, including few surgical densities projecting over the left glenoid. CONCLUSION: 1. Interval uncomplicated left upper extremity PICC placement. Stable right chest port. 2. New right lung pneumonia. Thank you for the opportunity to participate in this patient's care.
[2016-06-02] MEDS ORDERED: LEVOPHED DRIP 4 MG/NS 250 ML 4 MG/250 ML BAG IV ONE (15:06)
[2016-06-02] MEDS: LEVOPHED DRIP 4 MG/NS 250 ML 4 MG/250 ML BAG IV SCH (15:15)
[2016-06-02] MEDS ORDERED: XYLOCAINE 2% UROJET ONE (15:19)
[2016-06-02] MEDS ORDERED: WATER FOR IRRIG STERILE ONE (15:19)
[2016-06-02 16:23] LABS: ISTAT Base Excess -12; ISTAT HCO3 14.3; ISTAT PCO2 27.8 (35-45); ISTAT PH 7.317 (7.35-7.45); ISTAT PO2 63 (80-105); ISTAT SO2 90; ISTAT TCO2 15
--- NOTE | 2016-06-02 17:13 | Progress Note ---
Subjective Date of service: 06/02/16 Principal diagnosis: Acute Hypoxemic Respiratory Failure; Acute COPD exacerbation Objective Vital Signs - 12hr 06/02/16 06/02/16 06/02/16 07:22 07:41 08:00 Temperature 97.4 F L Pulse Rate Pulse Rate [ 102 H 97 H Anterior Bilateral Throughout] Pulse Rate [ From Monitor] Pulse Rate [ 104 H Right] Respiratory 20 Rate Respiratory 24 22 Rate [Anterior Bilateral Throughout] Blood Pressure Blood Pressure 67/43 [Right Arm] O2 Sat by Pulse 93 95 Oximetry 06/02/16 06/02/16 06/02/16 08:06 12:00 12:55 Temperature 98.6 F Pulse Rate 102 H Pulse Rate [ 66 Anterior Bilateral Throughout] Pulse Rate [ From Monitor] Pulse Rate [ 106 H Right] Respiratory 20 Rate Respiratory 20 Rate [Anterior Bilateral Throughout] Blood Pressure Blood Pressure 70/45 [Right Arm] O2 Sat by Pulse 93 Oximetry 06/02/16 06/02/16 06/02/16 14:50 15:01 15:11 Temperature Pulse Rate 106 H 103 H 101 H Pulse Rate [ Anterior Bilateral Throughout] Pulse Rate [ From Monitor] Pulse Rate [ Right] Respiratory 25 H 20 20 Rate Respiratory Rate [Anterior Bilateral Throughout] Blood Pressure 75/39 75/39 Blood Pressure [Right Arm] O2 Sat by Pulse 45 L Oximetry 06/02/16 06/02/16 06/02/16 15:21 15:30 15:41 Temperature Pulse Rate 103 H 101 H 102 H Pulse Rate [ Anterior Bilateral Throughout] Pulse Rate [ From Monitor] Pulse Rate [ Right] Respiratory 19 21 18 Rate Respiratory Rate [Anterior Bilateral Throughout] Blood Pressure 78/38 101/57 101/57 Blood Pressure [Right Arm] O2 Sat by Pulse 95 94 Oximetry 06/02/16 06/02/16 06/02/16 15:46 15:51 16:00 Temperature 98.8 F Pulse Rate 101 H Pulse Rate [ Anterior Bilateral Throughout] Pulse Rate [ 102 H From Monitor] Pulse Rate [ Right] Respiratory 19 22 Rate Respiratory Rate [Anterior Bilateral Throughout] Blood Pressure 89/56 Blood Pressure [Right Arm] O2 Sat by Pulse 94 97 Oximetry 06/02/16 06/02/16 06/02/16 16:01 16:10 16:11 Temperature Pulse Rate 102 H 103 H Pulse Rate [ Anterior Bilateral Throughout] Pulse Rate [ From Monitor] Pulse Rate [ Right] Respiratory 21 21 Rate Respiratory Rate [Anterior Bilateral Throughout] Blood Pressure 89/56 85/61 Blood Pressure [Right Arm] O2 Sat by Pulse 95 93 91 Oximetry CBC and BMP: 06/02/16 06:11 06/02/16 06:11 ABG, PT/INR, D-dimer: ABG POC ABG pH 7.317 (7.35-7.45) L 06/02/16 16:10 POC ABG pCO2 27.8 (35-45) L 06/02/16 16:10 POC ABG pO2 63 (80-105) L 06/02/16 16:10 POC ABG HCO3 14.3 06/02/16 16:10 POC ABG Total CO2 15 06/02/16 16:10 POC ABG O2 Sat 90 06/02/16 16:10 PT/INR, D-dimer PT 14.7 Sec. (12.2-14.9) 05/31/16 11:50 INR 1.16 (0.87-1.13) H 05/31/16 11:50 Abnormal lab findings: Abnormal Labs 05/30/16 05/31/16 05/31/16 23:08 04:00 04:00 WBC 12.3 H Hgb Hct MCV 83 L MCH 27 L MCHC RDW 21.4 H Seg Neuts % (Manual) 90.0 H Lymphocytes % (Manual) 4.0 L Seg Neutrophils # Man 11.1 H Lymphocytes # (Manual) 0.5 L INR POC ABG pH POC ABG pCO2 POC ABG pO2 Sodium 136 L Potassium Chloride Carbon Dioxide 19 L BUN 22 H Creatinine Glucose 147 H Lactic Acid 2.8 H* Calcium 8.3 L 05/31/16 05/31/16 06/01/16 11:50 11:50 06:33 WBC 17.0 H Hgb 10.7 L Hct 32.8 L MCV 82 L MCH 27 L MCHC RDW 21.6 H Seg Neuts % (Manual) 98.0 H Lymphocytes % (Manual) 1.0 L Seg Neutrophils # Man 16.7 H Lymphocytes # (Manual) 0.2 L INR 1.16 H POC ABG pH POC ABG pCO2 POC ABG pO2 Sodium Potassium Chloride Carbon Dioxide BUN Creatinine Glucose Lactic Acid 4.9 H* Calcium 06/01/16 06/02/16 06/02/16 06:33 06:11 06:11 WBC 18.9 H Hgb 10.3 L Hct 32.9 L MCV MCH 27 L MCHC 31 L RDW 22.7 H Seg Neuts % (Manual) 99.0 H Lymphocytes % (Manual) 0 L Seg Neutrophils # Man 18.7 H Lymphocytes # (Manual) 0.0 L INR POC ABG pH POC ABG pCO2 POC ABG pO2 Sodium 136 L Potassium 5.1 H Chloride 97.9 L Carbon Dioxide 20 L 18 L BUN 25 H 42 H Creatinine 1.6 H D Glucose 135 H 127 H Lactic Acid Calcium 8.3 L 06/02/16 16:10 WBC Hgb Hct MCV MCH MCHC RDW Seg Neuts % (Manual) Lymphocytes % (Manual) Seg Neutrophils # Man Lymphocytes # (Manual) INR POC ABG pH 7.317 L POC ABG pCO2 27.8 L POC ABG pO2 63 L Sodium Potassium Chloride Carbon Dioxide BUN Creatinine Glucose Lactic Acid Calcium
--- NOTE | 2016-06-02 17:23 | Progress Note ---
Assessment and Plan - Patient Problems (1) Acute hypoxemic respiratory failure Current Visit: Yes Status: Acute Plan to address problem: - continue bronchodilators and pulmonary toilet - deployed qhs BIPAP - continue empiric AB's for pneumonia - wean oxygen to keep sats > 94% - continue aspiration precautions (2) COPD with acute exacerbation Current Visit: Yes Status: Acute Plan to address problem: - taper off systemic steroids quickley in case of true intra-abdominal / pelvic infection - continue other care as above (3) Liver cancer Current Visit: Yes Status: Acute Qualifiers: Liver malignancy type: L Plan to address problem: - per oncology (4) Severe sepsis Current Visit: Yes Status: Acute Plan to address problem: - on levophed at 8mics/min - continue broad spectrum AB's empirically - will consult ID - volume resuscitation (5) SHARON (acute kidney injury) Current Visit: Yes Status: Acute Plan to address problem: - IV resuscitation - ? contrast nephropathy element - will get nephrology input early rather than late (6) Discharge planning issues Current Visit: No Status: Acute Plan to address problem: - prognosis guarded with developing severe sepsis ...hopefully home after recovery ....he is now critically ill on life sustaining interventions including vasopressors and at high risk for further deterioration including .....34' CCT Subjective Date of service: 06/02/16 Principal diagnosis: Acute Hypoxemic Respiratory Failure; Acute COPD exacerbation Interval history: Seen and examined at bedside; 24 hour events reviewed; nursing and respiratory care staff consulted; no adverse overnight events reported to me; transfered to ICU about an hour ago due to hypotension; delirius now; no hemoptysis; no N/V/F/ C reported; CT abd/pelvis noted and abnormal Objective Vital Signs - 12hr 06/02/16 06/02/16 06/02/16 07:22 07:41 08:00 Temperature 97.4 F L Pulse Rate Pulse Rate [ 102 H 97 H Anterior Bilateral Throughout] Pulse Rate [ From Monitor] Pulse Rate [ 104 H Right] Respiratory 20 Rate Respiratory 24 22 Rate [Anterior Bilateral Throughout] Blood Pressure Blood Pressure 67/43 [Right Arm] O2 Sat by Pulse 93 95 Oximetry 06/02/16 06/02/16 06/02/16 08:06 12:00 12:55 Temperature 98.6 F Pulse Rate 102 H Pulse Rate [ 66 Anterior Bilateral Throughout] Pulse Rate [ From Monitor] Pulse Rate [ 106 H Right] Respiratory 20 Rate Respiratory 20 Rate [Anterior Bilateral Throughout] Blood Pressure Blood Pressure 70/45 [Right Arm] O2 Sat by Pulse 93 Oximetry 06/02/16 06/02/16 06/02/16 14:50 15:01 15:11 Temperature Pulse Rate 106 H 103 H 101 H Pulse Rate [ Anterior Bilateral Throughout] Pulse Rate [ From Monitor] Pulse Rate [ Right] Respiratory 25 H 20 20 Rate Respiratory Rate [Anterior Bilateral Throughout] Blood Pressure 75/39 75/39 Blood Pressure [Right Arm] O2 Sat by Pulse 45 L Oximetry 06/02/16 06/02/16 06/02/16 15:21 15:30 15:41 Temperature Pulse Rate 103 H 101 H 102 H Pulse Rate [ Anterior Bilateral Throughout] Pulse Rate [ From Monitor] Pulse Rate [ Right] Respiratory 19 21 18 Rate Respiratory Rate [Anterior Bilateral Throughout] Blood Pressure 78/38 101/57 101/57 Blood Pressure [Right Arm] O2 Sat by Pulse 95 94 Oximetry 06/02/16 06/02/16 06/02/16 15:46 15:51 16:00 Temperature 98.8 F Pulse Rate 101 H Pulse Rate [ Anterior Bilateral Throughout] Pulse Rate [ 102 H From Monitor] Pulse Rate [ Right] Respiratory 19 22 Rate Respiratory Rate [Anterior Bilateral Throughout] Blood Pressure 89/56 Blood Pressure [Right Arm] O2 Sat by Pulse 94 97 Oximetry 06/02/16 06/02/16 06/02/16 16:01 16:10 16:11 Temperature Pulse Rate 102 H 103 H Pulse Rate [ Anterior Bilateral Throughout] Pulse Rate [ From Monitor] Pulse Rate [ Right] Respiratory 21 21 Rate Respiratory Rate [Anterior Bilateral Throughout] Blood Pressure 89/56 85/61 Blood Pressure [Right Arm] O2 Sat by Pulse 95 93 91 Oximetry Constitutional: no acute distress, alert Eyes: non-icteric ENT: oropharynx moist Neck: supple, no lymphadenopathy Effort: mildly labored Ascultation: Bilateral: diminished breath sounds, rales Cardiovascular: regular rate and rhythm Gastrointestinal: normoactive bowel sounds, soft, tender, non-distended Integumentary: normal Extremities: no cyanosis, no edema, pink and warm, pulses normal Neurologic: normal mental status, non-focal exam, pupils equal and round, motor strength normal and Psychiatric: mood appropriate, affect normal CBC and BMP: 06/02/16 06:11 06/02/16 06:11 ABG, PT/INR, D-dimer: ABG POC ABG pH 7.317 (7.35-7.45) L 06/02/16 16:10 POC ABG pCO2 27.8 (35-45) L 06/02/16 16:10 POC ABG pO2 63 (80-105) L 06/02/16 16:10 POC ABG HCO3 14.3 06/02/16 16:10 POC ABG Total CO2 15 06/02/16 16:10 POC ABG O2 Sat 90 06/02/16 16:10 PT/INR, D-dimer PT 14.7 Sec. (12.2-14.9) 05/31/16 11:50 INR 1.16 (0.87-1.13) H 05/31/16 11:50 Abnormal lab findings: Abnormal Labs 05/30/16 05/31/16 05/31/16 23:08 04:00 04:00 WBC 12.3 H Hgb Hct MCV 83 L MCH 27 L MCHC RDW 21.4 H Seg Neuts % (Manual) 90.0 H Lymphocytes % (Manual) 4.0 L Seg Neutrophils # Man 11.1 H Lymphocytes # (Manual) 0.5 L INR POC ABG pH POC ABG pCO2 POC ABG pO2 Sodium 136 L Potassium Chloride Carbon Dioxide 19 L BUN 22 H Creatinine Glucose 147 H Lactic Acid 2.8 H* Calcium 8.3 L 05/31/16 05/31/16 06/01/16 11:50 11:50 06:33 WBC 17.0 H Hgb 10.7 L Hct 32.8 L MCV 82 L MCH 27 L MCHC RDW 21.6 H Seg Neuts % (Manual) 98.0 H Lymphocytes % (Manual) 1.0 L Seg Neutrophils # Man 16.7 H Lymphocytes # (Manual) 0.2 L INR 1.16 H POC ABG pH POC ABG pCO2 POC ABG pO2 Sodium Potassium Chloride Carbon Dioxide BUN Creatinine Glucose Lactic Acid 4.9 H* Calcium 06/01/16 06/02/16 06/02/16 06:33 06:11 06:11 WBC 18.9 H Hgb 10.3 L Hct 32.9 L MCV MCH 27 L MCHC 31 L RDW 22.7 H Seg Neuts % (Manual) 99.0 H Lymphocytes % (Manual) 0 L Seg Neutrophils # Man 18.7 H Lymphocytes # (Manual) 0.0 L INR POC ABG pH POC ABG pCO2 POC ABG pO2 Sodium 136 L Potassium 5.1 H Chloride 97.9 L Carbon Dioxide 20 L 18 L BUN 25 H 42 H Creatinine 1.6 H D Glucose 135 H 127 H Lactic Acid Calcium 8.3 L 06/02/16 16:10 WBC Hgb Hct MCV MCH MCHC RDW Seg Neuts % (Manual) Lymphocytes % (Manual) Seg Neutrophils # Man Lymphocytes # (Manual) INR POC ABG pH 7.317 L POC ABG pCO2 27.8 L POC ABG pO2 63 L Sodium Potassium Chloride Carbon Dioxide BUN Creatinine Glucose Lactic Acid Calcium
[2016-06-02] MEDS: NACL 0.9% 1000 ML 1,000 ML IV SCH (18:00)
[2016-06-02] MEDS: TYLENOL PO PRN (18:29)
[2016-06-02] MEDS: ZOCOR PO SCH (22:13)
[2016-06-02] MEDS: LOVENOX SUB-Q SCH (22:13)
[2016-06-03] MEDS ORDERED: LEVOPHED DRIP 4 MG/NS 250 ML 4 MG/250 ML BAG IV SCH ×4 (01:00)
[2016-06-03] MEDS: LEVOPHED DRIP 4 MG/NS 250 ML 4 MG/250 ML BAG IV SCH (01:01)
[2016-06-03 05:19] LABS: Hematocrit 33.8 % (35.5-45.6); Hemoglobin 10.6 gm/dl (11.8-15.2); Mean Corpuscular HGB Conc 32 % (32-34); Mean Corpuscular Hemoglobin 27 pg (28-32); Mean Corpuscular Volume 85 fl (84-94); Platelet Count 488 K/mm3 (140-440); White Blood Count 16.2 K/mm3 (4.5-11.0)
[2016-06-03 05:21] LABS: Red Cell Distribution Width 22.1 % (13.2-15.2)
[2016-06-03 05:36] LABS: BUN/Creatinine Ratio 28.63; Calcium 7.3 mg/dL (8.4-10.2); Chloride 98.7 mmol/L (98-107); Potassium 4.7 mmol/L (3.6-5.0)
[2016-06-03] MEDS: ZOSYN/NS 3.375GM/50ML 3.375 GM/50 ML BAG IV SCH ×4 (06:52→23:31)
[2016-06-03] MEDS: DUONEB 0.5 MG-3 MG/3 ML SOLN IH SCH ×3 (08:04→19:59)
[2016-06-03] MEDS: PULMICORT IH SCH ×2 (08:04→19:59)
--- NOTE | 2016-06-03 08:44 | Hem/Onc Progress Note ---
Assessment and Plan Continue supportive care. He will not be able to get his chemotherapy till he is improved specially in face of pneumonia and hypotension. Patient understands. We will continue to monitor. Prognosis is guarded. Subjective Date of service: 06/03/16 Interval history: Events noted. He shouldn't the ICU for hypotension. Still on pressors. Feels a little better. Wants to eat. Wants to walk around. Objective - Constitutional Vitals: Last Vital Signs Temp 98.2 F 06/03/16 08:00 Pulse 98 H 06/03/16 08:21 Resp 23 06/03/16 08:21 BP 111/61 06/03/16 08:21 Pulse Ox 100 06/03/16 08:25 General appearance: mild distress, disheveled Performance status: 3-limited selfcare - Neck Neck: supple - Respiratory Respiratory: bilateral: CTA, diminished - Cardiovascular Rhythm: regular - Labs Lab Results: Laboratory Results - last 24 hr 06/02/16 06/02/16 06/02/16 06:11 08:35 16:10 WBC RBC Hgb Hct MCV MCH MCHC RDW Plt Count Add Manual Diff Complete Total Counted 100 Seg Neutrophils % Seg Neuts % (Manual) 99.0 H Band Neutrophils % 0 Lymphocytes % (Manual) 0 L Reactive Lymphs % (Man) 0 Monocytes % (Manual) 1.0 Eosinophils % (Manual) 0 Basophils % (Manual) 0 Metamyelocytes % 0 Myelocytes % 0 Promyelocytes % 0 Blast Cells % 0 Nucleated RBC % Not Reportable Seg Neutrophils # Man 18.7 H Band Neutrophils # 0.0 Lymphocytes # (Manual) 0.0 L Abs React Lymphs (Man) 0.0 Monocytes # (Manual) 0.2 Eosinophils # (Manual) 0.0 Basophils # (Manual) 0.0 Metamyelocytes # 0.0 Myelocytes # 0.0 Promyelocytes # 0.0 Blast Cells # 0.0 WBC Morphology Not Reportable Hypersegmented Neuts Not Reportable Hyposegmented Neuts Not Reportable Hypogranular Neuts Not Reportable Smudge Cells Not Reportable Toxic Granulation Not Reportable Toxic Vacuolation Not Reportable Dohle Bodies Not Reportable Pelger-Huet Anomaly Not Reportable [place] Rods Not Reportable Platelet Estimate Appears normal Clumped Platelets Not Reportable Plt Clumps, EDTA Not Reportable Large Platelets Not Reportable Giant Platelets Not Reportable Platelet Satelliting Not Reportable Plt Morphology Comment Not Reportable RBC Morphology Not Reportable Dimorphic RBCs Not Reportable Polychromasia Few Hypochromasia Not Reportable Poikilocytosis Not Reportable Anisocytosis 1+ Microcytosis Not Reportable Macrocytosis Not Reportable Spherocytes Not Reportable Pappenheimer Bodies Not Reportable Sickle Cells Not Reportable Target Cells Rare Tear Drop Cells Not Reportable Ovalocytes Not Reportable Helmet Cells Not Reportable [place] Bodies Not Reportable Blairs Rings Not Reportable [place] Cells Not Reportable Bite Cells Not Reportable Crenated Cell Not Reportable Elliptocytes Not Reportable Acanthocytes (Spur) Not Reportable Rouleaux Not Reportable Hemoglobin C Crystals Not Reportable Schistocytes Not Reportable Malaria parasites Not Reportable Carlos Bodies Not Reportable Hem Pathologist Commnt No POC ABG pH 7.317 L POC ABG pCO2 27.8 L POC ABG pO2 63 L POC ABG HCO3 14.3 POC ABG Total CO2 15 POC ABG O2 Sat 90 POC ABG Base Excess -12 FiO2 40 Sodium Potassium Chloride Carbon Dioxide Anion Gap BUN Creatinine Estimated GFR BUN/Creatinine Ratio Glucose POC Glucose 127 H Lactic Acid Calcium C-Reactive Protein 06/02/16 06/02/16 06/03/16 18:20 18:30 05:00 WBC 16.2 H RBC 4.00 Hgb 10.6 L Hct 33.8 L MCV 85 MCH 27 L MCHC 32 RDW 22.1 H Plt Count 488 H Add Manual Diff Total Counted Seg Neutrophils % Environmental Science Technician Seg Neuts % (Manual) Band Neutrophils % Lymphocytes % (Manual) Reactive Lymphs % (Man) Monocytes % (Manual) Eosinophils % (Manual) Basophils % (Manual) Metamyelocytes % Myelocytes % Promyelocytes % Blast Cells % Nucleated RBC % Seg Neutrophils # Man Band Neutrophils # Lymphocytes # (Manual) Abs React Lymphs (Man) Monocytes # (Manual) Eosinophils # (Manual) Basophils # (Manual) Metamyelocytes # Myelocytes # Promyelocytes # Blast Cells # WBC Morphology Hypersegmented Neuts Hyposegmented Neuts Hypogranular Neuts Smudge Cells Toxic Granulation Toxic Vacuolation Dohle Bodies Pelger-Huet Anomaly [place] Rods Platelet Estimate Clumped Platelets Plt Clumps, EDTA Large Platelets Giant Platelets Platelet Satelliting Plt Morphology Comment RBC Morphology Dimorphic RBCs Polychromasia Hypochromasia Poikilocytosis Anisocytosis Microcytosis Macrocytosis Spherocytes Pappenheimer Bodies Sickle Cells Target Cells Tear Drop Cells Ovalocytes Helmet Cells [place] Bodies Blairs Rings Kal Cells Bite Cells Crenated Cell Elliptocytes Acanthocytes (Spur) Rouleaux Hemoglobin C Crystals Schistocytes Malaria parasites Carlos Bodies Hem Pathologist Commnt POC ABG pH POC ABG pCO2 POC ABG pO2 POC ABG HCO3 POC ABG Total CO2 POC ABG O2 Sat POC ABG Base Excess FiO2 Sodium Potassium Chloride Carbon Dioxide Anion Gap BUN Creatinine Estimated GFR BUN/Creatinine Ratio Glucose POC Glucose Lactic Acid 5.7 H* Calcium C-Reactive Protein 4.30 H 06/03/16 05:00 WBC RBC Hgb Hct MCV MCH MCHC RDW Plt Count Add Manual Diff Total Counted Seg Neutrophils % Seg Neuts % (Manual) Band Neutrophils % Lymphocytes % (Manual) Reactive Lymphs % (Man) Monocytes % (Manual) Eosinophils % (Manual) Basophils % (Manual) Metamyelocytes % Myelocytes % Promyelocytes % Blast Cells % Nucleated RBC % Seg Neutrophils # Man Band Neutrophils # Lymphocytes # (Manual) Abs React Lymphs (Man) Monocytes # (Manual) Eosinophils # (Manual) Basophils # (Manual) Metamyelocytes # Myelocytes # Promyelocytes # Blast Cells # WBC Morphology Hypersegmented Neuts Hyposegmented Neuts Hypogranular Neuts Smudge Cells Toxic Granulation Toxic Vacuolation Dohle Bodies Pelger-Huet Anomaly [place] Rods Platelet Estimate Clumped Platelets Plt Clumps, EDTA Large Platelets Giant Platelets Platelet Satelliting Plt Morphology Comment RBC Morphology Dimorphic RBCs Polychromasia Hypochromasia Poikilocytosis Anisocytosis Microcytosis Macrocytosis Spherocytes Pappenheimer Bodies Sickle Cells Target Cells Tear Drop Cells Ovalocytes Helmet Cells [place] Bodies Blairs Rings [place] Cells Bite Cells Crenated Cell Elliptocytes Acanthocytes (Spur) Rouleaux Hemoglobin C Crystals Schistocytes Malaria parasites Carlos Bodies Hem Pathologist Commnt POC ABG pH POC ABG pCO2 POC ABG pO2 POC ABG HCO3 POC ABG Total CO2 POC ABG O2 Sat POC ABG Base Excess FiO2 Sodium 134 L Potassium 4.7 Chloride 98.7 Carbon Dioxide 16 L Anion Gap 24 BUN 63 H Creatinine 2.2 H Estimated GFR 31 BUN/Creatinine Ratio 28.63 Glucose 129 H POC Glucose Lactic Acid Calcium 7.3 L C-Reactive Protein
[2016-06-03] MEDS: PLAVIX PO SCH (09:25)
[2016-06-03] MEDS: PEPCID PO SCH (09:25)
[2016-06-03] MEDS: IMDUR PO SCH (09:25)
[2016-06-03] MEDS: LOPRESSOR PO SCH ×2 (09:26→22:30)
[2016-06-03] MEDS: ZESTRIL PO SCH (09:27)
--- NOTE | 2016-06-03 09:28 | Consultation ---
History of Present Illness - History of Present Illness Thank you for the consultation Patient was evaluated today in the ICU setting around 10:00 in the morning Patient is currently a very poor historian and partly also appears to be encephalopathic Most of the history was obtained from patient's current chart and some from the patient himself Also did discuss with his oncologist Dr. Bravo Assessment and plan Acute renal failure in a patient who does have history of solitary functioning kidney currently at risk for acute tubular necrosis, due to hypoxia sepsis-like picture hypotension No acute emergent indication for renal replacement therapy Need to monitor intake output maintained hemodynamics maintained arterial pressure over 65 oxygenation hydration as tolerated and close monitoring of renal function and avoidance of nephrotoxic medications Lactic acidosis needs a serial follow-up with close monitoring of oxygenation hydration intake and output monitoring Renal prognosis remains guarded at this time to follow Patient has been adequately counseled and educated about renal related problems discussed with patient he does not want to discuss his care with anybody else at this time History of present illness Patient is a 60-year-old male who has known history of 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 Patient denies having any prior history of chronic kidney disease other than having left nephrectomy he does not use any follow-up nonsteroidal drugs in the outpatient setting. According to the patient he has been diagnosed with liver cancer approximately a week ago and is currently being followed by Dr. Bravo appetite has been poor no prior history of any hematuria or proteinuria pyuria lupus paraproteinemias etc. urine output has been low and urine has been dark in color. Patient was also taking his lisinopril prior to admission as well in addition to several other medications Review of systems positive for generalized weakness fatigue and nausea poor appetite dizziness cough cold congestion-like symptoms difficulty breathing malaise fatigue sweating Complete review of systems obtained. Also mentioned below the review of system negative physical examination General appearance: Present: mild distress,Appears to be weak - EENT Eyes: Present: PERRL, EOM intact ENT: hearing intact, clear oral mucosa, no thrush - Neck Neck: Present: supple, normal ROM. Absent: masses or JVD - Respiratory Respiratory effort: normal (mildly short of breath) Respiratory: bilateral: diminished, negative: rales, rhonchi, wheezing - Cardiovascular Rhythm: regular Heart Sounds: Present: S1 & S2 - Extremities Extremities: No edema - Abdominal General gastrointestinal: Present: soft, non-tender, non-distended. nonspecific tenderness with no voluntary guard Musculoskeletal: strength equal bilaterally Psychiatric: appropriate mood/affect - Neurologic patient is alert awake follows commands but slightly encephalopathic Past History Past Medical History: arthritis, CAD, cancer (apparently was diagnosed with liver cancer 1 week ago and his oncologist is Dr. Bravo), COPD, hypertension, hyperlipidemia Past Surgical History: arthroscopy (bilateral rotator cuff repair), total knee replacement, PTCA (with stent), Other (left nephrectomy) Social history: no significant social history (he quit smoking one year ago but apparently still smokes once in a while) Family history: no significant family history Medications and Allergies Allergies Allergy/AdvReac Type Severity Reaction Status Date / Time codeine AdvReac Rash Verified 08/17/15 10:45 Home Medications Medication Instructions Recorded Confirmed Last Taken Type Famotidine [Pepcid] 20 mg PO QDAY #30 tablet 08/19/14 05/30/16 08/18/15 05:59 Rx Ipratropium/Albuterol Sulfate 1 ampul IH Q8HRT #1 mo 08/19/14 05/30/16 08/18/15 05:59 Rx [Duoneb 0.5 mg-3 mg/3 ml Soln] Clopidogrel [Plavix] 75 mg PO QDAY #30 tablet 08/19/15 05/30/16 Unknown Rx Lisinopril [Zestril TAB] 5 mg PO QDAY #30 tablet 08/19/15 05/30/16 Unknown Rx Metoprolol [Lopressor TAB] 50 mg PO BID #60 tablet 08/19/15 05/30/16 Unknown Rx Simvastatin [Zocor TAB] 40 mg PO QHS #30 tablet 08/19/15 05/30/16 Unknown Rx Zolpidem [Ambien] 5 mg PO QHS PRN #15 tablet 08/19/15 05/30/16 Unknown Rx oxyCODONE [Roxicodone TAB] 5 mg PO Q6H PRN #30 tablet 08/19/15 05/30/16 Unknown Rx traMADol [Ultram 50 MG tab] 50 mg PO Q8H PRN #30 tablet 08/19/15 05/30/16 Unknown Rx HYDROcodone/APAP 5-325 [[place] 1 tab PO Q6H PRN 05/30/16 05/30/16 Unknown History 5-325 mg TAB] Omeprazole 20 mg PO DAILY 05/30/16 05/30/16 Unknown History Active Meds: Active Medications Acetaminophen (Tylenol) 650 mg PO Q4H PRN PRN Reason: Pain MILD(1-3)/Fever >100.5/ALEXANDER Last Admin: 06/02/16 18:29 Dose: 650 mg Albuterol/Ipratropium (Duoneb 0.5 Mg-3 Mg/3 Ml Soln) 1 ampul IH TIDRT [facility] Last Admin: 06/03/16 08:04 Dose: 1 ampul Bisacodyl (Dulcolax) 10 mg [place] QDAY PRN PRN Reason: Constipation unrelieved by MOM Budesonide (Pulmicort) 0.5 mg IH Q12HRT [facility] Last Admin: 06/03/16 08:04 Dose: 0.5 mg Clopidogrel Bisulfate (Plavix) 75 mg PO QDAY [facility] Last Admin: 06/03/16 09:25 Dose: 75 mg Enoxaparin Sodium (Lovenox) 40 mg SUB-Q QDAY@2200 [facility] Last Admin: 06/02/16 22:13 Dose: 40 mg Famotidine (Pepcid) 20 mg PO QDAY [facility] Last Admin: 06/03/16 09:25 Dose: 20 mg Hydromorphone HCl (Dilaudid) 1 mg IV Q4H PRN PRN Reason: Pain , Severe (7-10) Last Admin: 06/02/16 05:08 Dose: 1 mg Piperacillin Sod/Tazobactam Sod (Zosyn/Ns 3.375gm/50ml) 3.375 gm in 50 mls @ 100 mls/hr IV Q6HR [facility] Last Admin: 06/03/16 06:52 Dose: 100 mls/hr Levofloxacin/Dextrose (Levaquin 750mg/150ml) 750 mg in 150 mls @ 100 mls/hr IV Q48HR [facility] PRN Reason: Protocol Vancomycin HCl (Vancomycin/Ns 1 Gm/250 Ml) 1 gm in 250 mls @ 166.667 mls/hr IV Q24H [facility] Sodium Chloride (Nacl 0.9% 1000 Ml) 1,000 mls @ 50 mls/hr IV DIRECT STACIE Stop: 06/03/16 13:59 Last Admin: 06/02/16 18:00 Dose: 50 mls/hr Norepinephrine (Levophed Drip 4 Mg/Ns 250 Ml) 4 mg in 250 mls @ 7.5 mls/hr IV TITR STACIE; 2 MCG/MIN PRN Reason: Protocol Isosorbide Mononitrate (Imdur) 30 mg PO QDAY [facility] Last Admin: 06/03/16 09:25 Dose: 30 mg Lisinopril (Zestril) 5 mg PO QDAY [facility] Last Admin: 06/03/16 09:27 Dose: Not Given Magnesium Hydroxide (Milk Of Magnesia) 30 ml PO Q4H PRN PRN Reason: Constipation Methylprednisolone Sodium Succinate (Solu-Medrol) 40 mg IV DAILY [facility] Last Admin: 06/03/16 09:25 Dose: 40 mg Metoprolol Tartrate (Lopressor) 25 mg PO BID [facility] Last Admin: 06/03/16 09:26 Dose: Not Given Ondansetron HCl (Zofran) 4 mg IV Q8H PRN PRN Reason: N/V unrelieved by Mandeep Last Admin: 06/01/16 14:10 Dose: 4 mg Simvastatin (Zocor) 40 mg PO QHS [facility] Last Admin: 06/02/16 22:13 Dose: 40 mg Vancomycin HCl (Vancomycin Pharmacy To Dose) 1 each IV PKCONSULT [facility] PRN Reason: Protocol Zolpidem Tartrate (Ambien) 5 mg PO QHS PRN PRN Reason: Sleep Last Admin: 06/01/16 21:52 Dose: 5 mg Exam - Vital Signs Vital signs: Vital Signs Temp Pulse Resp BP Pulse Ox 98.4 F 83 24 106/61 94 05/30/16 13:59 05/30/16 13:59 05/30/16 13:59 05/30/16 13:59 05/30/16 13:59 Results - Lab Results 06/03/16 05:00 06/04/16 21:00 Most recent lab results Calcium 7.3 mg/dL (8.4-10.2) L 06/03/16 05:00
[2016-06-03 09:54] LABS: Basophils % (Manual) 0 % (0.0-1.8); Blastocytes % (Manual) 0 %; Eosinophils % (Manual) 0 % (0.0-4.3)
[2016-06-03 09:55] LABS: Anisocytosis 1+; Diff Status Complete
--- NOTE | 2016-06-03 10:06 | Progress Note ---
Assessment and Plan Assessment and plan: 60-year-old male with a past medical history of liver cancer and chemotherapy who is admitted to the ICU with sepsis. 1. Acute hypoxic presents for a failure Continue oxygen supplementation 2. COPD exacerbation Pulmonary input appreciated, continues his taper of steroids given suspicion of intra-abdominal infection 3. Severe sepsis with shock Continue pressors, continue broad-spectrum antibiotics, Source. To be from pneumonia and or left retroperitoneal infection 4. Acute kidney injury Multifactorial was likely due to ATN and/or vasomotor nephropathy Continue hydration, nephrology input appreciated Critical care time 32 minutes History Interval history: He continues to be pressor dependent, waxing and waning periods of confusion. Hospitalist Physical - Physical exam Narrative exam: General: Toxic appearance HEENT: MMM, EOMI cardiac: S1-S2 heard lungs: clear to auscultation, abdomen: soft, nontender, nondistended bowel sounds positive extremities: no edema clubbing or cyanosis Poor capillary refill Skin: Dry skin, maculopapular rash present Neuro: Confused, at times agitated, moves all extremities - Constitutional Vitals: Temp Pulse Resp BP Pulse Ox 98.2 F 106 H 23 113/63 100 06/03/16 08:00 06/03/16 09:27 06/03/16 08:21 06/03/16 09:27 06/03/16 08:25 General appearance: Present: mild distress, disheveled Results - Labs CBC & Chem 7: 06/05/16 08:30 06/05/16 10:41 Labs: Laboratory Last Values WBC 16.2 K/mm3 (4.5-11.0) H 06/03/16 05:00 RBC 4.00 M/mm3 (3.65-5.03) 06/03/16 05:00 Hgb 10.6 gm/dl (11.8-15.2) L 06/03/16 05:00 Hct 33.8 % (35.5-45.6) L 06/03/16 05:00 MCV 85 fl (84-94) 06/03/16 05:00 MCH 27 pg (28-32) L 06/03/16 05:00 MCHC 32 % (32-34) 06/03/16 05:00 RDW 22.1 % (13.2-15.2) H 06/03/16 05:00 Plt Count 488 K/mm3 (140-440) H 06/03/16 05:00 Lymph % (Auto) 5.8 % (13.4-35.0) L 05/30/16 14:10 [place] % (Auto) 8.9 % (0.0-7.3) H 05/30/16 14:10 Eos % (Auto) 1.4 % (0.0-4.3) 05/30/16 14:10 Baso % (Auto) 0.8 % (0.0-1.8) 05/30/16 14:10 Lymph # 0.8 K/mm3 (1.2-5.4) L 05/30/16 14:10 [place] # 1.3 K/mm3 (0.0-0.8) H 05/30/16 14:10 Eos # 0.2 K/mm3 (0.0-0.4) 05/30/16 14:10 Baso # 0.1 K/mm3 (0.0-0.1) 05/30/16 14:10 Add Manual Diff Complete 06/03/16 05:00 Total Counted 100 06/03/16 05:00 Seg Neutrophils % Clerk Travel Reservations 06/03/16 05:00 Seg Neuts % (Manual) 92.0 % (40.0-70.0) H 06/03/16 05:00 Band Neutrophils % 0 % 06/03/16 05:00 Lymphocytes % (Manual) 1.0 % (13.4-35.0) L 06/03/16 05:00 Reactive Lymphs % (Man) 0 % 06/03/16 05:00 Monocytes % (Manual) 7.0 % (0.0-7.3) 06/03/16 05:00 Eosinophils % (Manual) 0 % (0.0-4.3) 06/03/16 05:00 Basophils % (Manual) 0 % (0.0-1.8) 06/03/16 05:00 Metamyelocytes % 0 % 06/03/16 05:00 Myelocytes % 0 % 06/03/16 05:00 Promyelocytes % 0 % 06/03/16 05:00 Blast Cells % 0 % 06/03/16 05:00 Nucleated RBC % Not Reportable 06/03/16 05:00 Seg Neutrophils # 12.1 K/mm3 (1.8-7.7) H 05/30/16 14:10 Seg Neutrophils # Man 14.9 K/mm3 (1.8-7.7) H 06/03/16 05:00 Band Neutrophils # 0.0 K/mm3 06/03/16 05:00 Lymphocytes # (Manual) 0.2 K/mm3 (1.2-5.4) L 06/03/16 05:00 Abs React Lymphs (Man) 0.0 K/mm3 06/03/16 05:00 Monocytes # (Manual) 1.1 K/mm3 (0.0-0.8) H 06/03/16 05:00 Eosinophils # (Manual) 0.0 K/mm3 (0.0-0.4) 06/03/16 05:00 Basophils # (Manual) 0.0 K/mm3 (0.0-0.1) 06/03/16 05:00 Metamyelocytes # 0.0 K/mm3 06/03/16 05:00 Myelocytes # 0.0 K/mm3 06/03/16 05:00 Promyelocytes # 0.0 K/mm3 06/03/16 05:00 Blast Cells # 0.0 K/mm3 06/03/16 05:00 WBC Morphology Not Reportable 06/03/16 05:00 Hypersegmented Neuts Not Reportable 06/03/16 05:00 Hyposegmented Neuts Not Reportable 06/03/16 05:00 Hypogranular Neuts Not Reportable 06/03/16 05:00 Smudge Cells Not Reportable 06/03/16 05:00 Toxic Granulation Not Reportable 06/03/16 05:00 Toxic Vacuolation Not Reportable 06/03/16 05:00 Dohle Bodies Not Reportable 06/03/16 05:00 Pelger-Huet Anomaly Not Reportable 06/03/16 05:00 Irving Rods Not Reportable 06/03/16 05:00 Platelet Estimate Appears normal 06/03/16 05:00 Clumped Platelets Not Reportable 06/03/16 05:00 Plt Clumps, EDTA Not Reportable 06/03/16 05:00 Large Platelets Not Reportable 06/03/16 05:00 Giant Platelets Not Reportable 06/03/16 05:00 Platelet Satelliting Not Reportable 06/03/16 05:00 Plt Morphology Comment Not Reportable 06/03/16 05:00 RBC Morphology Not Reportable 06/03/16 05:00 Dimorphic RBCs Not Reportable 06/03/16 05:00 Polychromasia Not Reportable 06/03/16 05:00 Hypochromasia Not Reportable 06/03/16 05:00 Poikilocytosis Not Reportable 06/03/16 05:00 Anisocytosis 1+ 06/03/16 05:00 Microcytosis Not Reportable 06/03/16 05:00 Macrocytosis Not Reportable 06/03/16 05:00 Spherocytes Not Reportable 06/03/16 05:00 Pappenheimer Bodies Not Reportable 06/03/16 05:00 Sickle Cells Not Reportable 06/03/16 05:00 Target Cells Not Reportable 06/03/16 05:00 Tear Drop Cells Not Reportable 06/03/16 05:00 Ovalocytes Not Reportable 06/03/16 05:00 Helmet Cells Not Reportable 06/03/16 05:00 [place] Bodies Not Reportable 06/03/16 05:00 [place] Rings Not Reportable 06/03/16 05:00 Kal Cells Not Reportable 06/03/16 05:00 Bite Cells Not Reportable 06/03/16 05:00 Crenated Cell Not Reportable 06/03/16 05:00 Elliptocytes Not Reportable 06/03/16 05:00 Acanthocytes (Spur) Not Reportable 06/03/16 05:00 Rouleaux Not Reportable 06/03/16 05:00 Hemoglobin C Crystals Not Reportable 06/03/16 05:00 Schistocytes Not Reportable 06/03/16 05:00 Malaria parasites Not Reportable 06/03/16 05:00 Carlos Bodies Not Reportable 06/03/16 05:00 Hem Pathologist Commnt No 06/03/16 05:00 PT 14.7 Sec. (12.2-14.9) 05/31/16 11:50 INR 1.16 (0.87-1.13) H 05/31/16 11:50 APTT 30.1 Sec. (24.2-36.6) 05/31/16 11:50 POC ABG pH 7.317 (7.35-7.45) L 06/02/16 16:10 POC ABG pCO2 27.8 (35-45) L 06/02/16 16:10 POC ABG pO2 63 (80-105) L 06/02/16 16:10 POC ABG HCO3 14.3 06/02/16 16:10 POC ABG Total CO2 15 06/02/16 16:10 POC ABG O2 Sat 90 06/02/16 16:10 POC ABG Base Excess -12 06/02/16 16:10 FiO2 40 % 06/02/16 16:10 Sodium 134 mmol/L (137-145) L 06/03/16 05:00 Potassium 4.7 mmol/L (3.6-5.0) 06/03/16 05:00 Chloride 98.7 mmol/L (98-107) 06/03/16 05:00 Carbon Dioxide 16 mmol/L (22-30) L 06/03/16 05:00 Anion Gap 24 mmol/L 06/03/16 05:00 BUN 63 mg/dL (9-20) H 06/03/16 05:00 Creatinine 2.2 mg/dL (0.8-1.5) H 06/03/16 05:00 Estimated GFR 31 ml/min 06/03/16 05:00 BUN/Creatinine Ratio 28.63 % 06/03/16 05:00 Glucose 129 mg/dL (75-100) H 06/03/16 05:00 POC Glucose 127 (70-105) H 06/02/16 08:35 Lactic Acid 5.7 mmol/L (0.7-2.0) H* 06/02/16 18:30 Calcium 7.3 mg/dL (8.4-10.2) L 06/03/16 05:00 Troponin T 0.024 ng/mL (0.00-0.029) 05/30/16 14:10 C-Reactive Protein 4.30 mg/dL (0.00-1.30) H 06/02/16 18:20 NT-Pro-B Natriuret Pep 7293 pg/mL (0-900) H 05/30/16 18:15
--- NOTE | 2016-06-03 11:16 | Progress Note ---
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 Subjective Date of service: 06/03/16 Principal diagnosis: Acute Hypoxemic Respiratory Failure; Acute COPD exacerbation Interval history: Patient is in CCU for hypotension and is currently on levophed. He denies chest pain. Venturi mask in place. No distress noted. Objective Vital Signs Temp Pulse Pulse Pulse Pulse Resp Resp 06/03/16 10:11 101 H 21 06/03/16 10:00 99 H 22 06/03/16 09:51 104 H 24 06/03/16 09:41 106 H 24 06/03/16 09:31 112 H 24 06/03/16 09:27 106 H 06/03/16 09:26 06/03/16 09:25 105 H 06/03/16 09:21 106 H 16 06/03/16 09:11 100 H 22 06/03/16 09:00 105 H 18 06/03/16 08:51 109 H 31 H 06/03/16 08:41 112 H 34 H 06/03/16 08:30 98 H 22 06/03/16 08:25 06/03/16 08:21 98 H 23 06/03/16 08:15 96 H 16 06/03/16 08:11 99 H 22 06/03/16 08:00 98.2 F 100 H 98 H 100 H 22 18 06/03/16 07:51 109 H 28 H 06/03/16 07:41 100 H 27 H 06/03/16 07:30 93 H 22 06/03/16 07:20 97 H 25 H 06/03/16 07:10 94 H 25 H 06/03/16 07:00 97 H 22 06/03/16 06:51 112 H 31 H 06/03/16 06:41 96 H 25 H 06/03/16 06:30 111 H 31 H 06/03/16 06:21 98 H 26 H 06/03/16 06:11 96 H 24 06/03/16 06:00 105 H 30 H 06/03/16 05:51 106 H 27 H 06/03/16 05:41 103 H 27 H 06/03/16 05:31 107 H 28 H 06/03/16 05:21 93 H 22 06/03/16 05:11 105 H 20 06/03/16 05:00 94 H 22 06/03/16 04:51 93 H 25 H 06/03/16 04:41 101 H 20 06/03/16 04:30 96 H 26 H 06/03/16 04:21 109 H 35 H 06/03/16 04:11 116 H 35 H 06/03/16 04:01 106 H 21 06/03/16 04:00 100 H 24 06/03/16 03:51 102 H 25 H 06/03/16 03:41 92 H 20 06/03/16 03:30 91 H 21 06/03/16 03:21 96 H 24 06/03/16 03:11 112 H 21 06/03/16 03:00 93 H 19 06/03/16 02:51 98 H 23 06/03/16 02:41 94 H 20 06/03/16 02:30 93 H 21 06/03/16 02:21 103 H 25 H 06/03/16 02:11 96 H 22 06/03/16 02:00 95 H 23 06/03/16 01:51 102 H 17 06/03/16 01:41 06/03/16 01:31 18 06/03/16 01:21 92 H 19 06/03/16 01:11 93 H 20 06/03/16 01:00 92 H 20 06/03/16 00:51 107 H 26 H 06/03/16 00:41 101 H 24 06/03/16 00:30 102 H 22 06/03/16 00:21 113 H 17 06/03/16 00:11 103 H 19 06/03/16 00:01 108 H 24 06/03/16 00:00 93 H 20 06/02/16 23:53 104 H 16 06/02/16 23:51 101 H 20 06/02/16 23:49 100 H 18 06/02/16 23:41 105 H 23 06/02/16 23:31 105 H 21 06/02/16 23:30 105 H 22 06/02/16 23:21 109 H 26 H 06/02/16 23:11 109 H 28 H 06/02/16 23:01 120 H 35 H 06/02/16 22:51 101 H 22 06/02/16 22:41 106 H 24 06/02/16 22:31 113 H 34 H 06/02/16 22:21 98 H 18 06/02/16 22:13 99 H 19 06/02/16 22:12 102 H 06/02/16 22:11 100 H 19 06/02/16 22:00 100 H 22 06/02/16 21:51 106 H 26 H 06/02/16 21:41 104 H 23 06/02/16 21:30 106 H 27 H 06/02/16 21:21 102 H 23 06/02/16 21:11 100 H 21 06/02/16 21:00 114 H 29 H 06/02/16 20:51 102 H 21 06/02/16 20:41 105 H 23 06/02/16 20:31 108 H 26 H 06/02/16 20:21 107 H 24 06/02/16 20:11 106 H 30 H 06/02/16 20:10 103 H 24 06/02/16 20:09 06/02/16 20:00 115 H 115 H 26 H 06/02/16 19:55 105 H 29 H 06/02/16 19:51 104 H 24 06/02/16 19:41 100 H 20 06/02/16 19:30 112 H 28 H 06/02/16 19:21 120 H 26 H 06/02/16 19:11 109 H 25 H 06/02/16 19:00 98 H 20 06/02/16 18:51 98 H 06/02/16 18:41 103 H 22 06/02/16 18:30 110 H 25 H 06/02/16 18:29 30 H 06/02/16 18:21 105 H 21 06/02/16 18:11 103 H 22 06/02/16 18:00 113 H 26 H 06/02/16 17:51 106 H 21 06/02/16 17:41 107 H 22 06/02/16 17:30 100 H 20 06/02/16 17:21 101 H 21 06/02/16 17:11 105 H 26 H 06/02/16 17:01 104 H 24 06/02/16 16:51 100 H 23 06/02/16 16:41 109 H 27 H 06/02/16 16:30 101 H 22 06/02/16 16:21 104 H 20 06/02/16 16:11 103 H 21 06/02/16 16:10 06/02/16 16:01 102 H 21 06/02/16 16:00 102 H 22 06/02/16 15:51 101 H 19 06/02/16 15:46 98.8 F 06/02/16 15:41 102 H 18 06/02/16 15:30 101 H 21 06/02/16 15:21 103 H 19 06/02/16 15:11 101 H 20 06/02/16 15:01 103 H 20 06/02/16 14:50 106 H 25 H 06/02/16 12:55 66 20 06/02/16 12:00 98.6 F 106 H 20 BP BP Pulse Ox 06/03/16 10:11 89/50 98 06/03/16 10:00 89/50 06/03/16 09:51 104/59 06/03/16 09:41 113/63 06/03/16 09:31 101/50 06/03/16 09:27 113/63 06/03/16 09:26 113/63 06/03/16 09:25 113/63 06/03/16 09:21 113/63 94 06/03/16 09:11 118/65 96 06/03/16 09:00 118/65 06/03/16 08:51 116/60 06/03/16 08:41 107/62 100 06/03/16 08:30 107/62 81 L 06/03/16 08:25 100 06/03/16 08:21 111/61 96 06/03/16 08:15 06/03/16 08:11 104/61 93 06/03/16 08:00 104/61 93 06/03/16 07:51 113/56 84 06/03/16 07:41 105/57 92 06/03/16 07:30 112/67 100 06/03/16 07:20 105/57 97 06/03/16 07:10 114/62 99 06/03/16 07:00 114/62 98 06/03/16 06:51 108/64 96 06/03/16 06:41 96/50 99 06/03/16 06:30 96/50 06/03/16 06:21 117/61 98 06/03/16 06:11 110/78 98 06/03/16 06:00 100/51 100 06/03/16 05:51 106/60 95 06/03/16 05:41 110/78 99 06/03/16 05:31 110/78 88 06/03/16 05:21 113/66 100 06/03/16 05:11 108/69 95 06/03/16 05:00 108/69 85 06/03/16 04:51 109/75 92 06/03/16 04:41 112/72 06/03/16 04:30 112/72 99 06/03/16 04:21 99/41 100 06/03/16 04:11 117/72 68 L 06/03/16 04:01 117/72 95 06/03/16 04:00 96 06/03/16 03:51 117/72 91 06/03/16 03:41 100/70 100 06/03/16 03:30 100/70 99 06/03/16 03:21 106/61 97 06/03/16 03:11 102/70 100 06/03/16 03:00 102/70 99 06/03/16 02:51 105/69 96 06/03/16 02:41 103/72 99 06/03/16 02:30 103/72 96 06/03/16 02:21 87/62 94 06/03/16 02:11 101/70 99 06/03/16 02:00 101/70 94 06/03/16 01:51 106/62 98 06/03/16 01:41 110/68 95 06/03/16 01:31 110/68 93 06/03/16 01:21 110/68 06/03/16 01:11 92/64 06/03/16 01:00 92/64 60 L 06/03/16 00:51 100/54 96 06/03/16 00:41 84/36 68 L 06/03/16 00:30 84/36 98 06/03/16 00:21 84/48 91 06/03/16 00:11 97/50 94 06/03/16 00:01 97/50 90 06/03/16 00:00 97 06/02/16 23:53 96/54 97 06/02/16 23:51 96/54 94 06/02/16 23:49 96/54 94 06/02/16 23:41 97/50 90 06/02/16 23:31 97/50 94 06/02/16 23:30 97/50 94 06/02/16 23:21 95/62 92 06/02/16 23:11 90/57 95 06/02/16 23:01 90/57 90 06/02/16 22:51 90/57 83 L 06/02/16 22:41 55/34 91 06/02/16 22:31 84/54 83 L 06/02/16 22:21 84/54 06/02/16 22:13 90/44 100 06/02/16 22:12 97/52 06/02/16 22:11 90/44 83 L 06/02/16 22:00 90/44 88 06/02/16 21:51 87/52 78 L 06/02/16 21:41 97/53 95 06/02/16 21:30 97/53 89 06/02/16 21:21 97/52 95 06/02/16 21:11 169/124 91 06/02/16 21:00 169/124 99 06/02/16 20:51 100/59 88 06/02/16 20:41 87/54 85 06/02/16 20:31 87/54 94 06/02/16 20:21 87/54 94 06/02/16 20:11 88/52 86 06/02/16 20:10 06/02/16 20:09 95 06/02/16 20:00 88/52 98 06/02/16 19:55 06/02/16 19:51 106/60 91 06/02/16 19:41 106/60 94 06/02/16 19:30 106/60 86 06/02/16 19:21 107/55 64 L 06/02/16 19:11 107/55 70 L 06/02/16 19:00 107/59 95 06/02/16 18:51 92/54 83 L 06/02/16 18:41 106/56 94 06/02/16 18:30 106/56 87 06/02/16 18:29 06/02/16 18:21 92/54 92 06/02/16 18:11 85/52 89 06/02/16 18:00 85/52 90 06/02/16 17:51 94/46 87 06/02/16 17:41 77/56 90 06/02/16 17:30 77/56 06/02/16 17:21 92/50 06/02/16 17:11 83/53 84 06/02/16 17:01 83/53 06/02/16 16:51 101/65 06/02/16 16:41 92/57 94 06/02/16 16:30 92/57 85 06/02/16 16:21 88/51 06/02/16 16:11 85/61 91 06/02/16 16:10 93 06/02/16 16:01 89/56 95 06/02/16 16:00 97 06/02/16 15:51 89/56 94 06/02/16 15:46 06/02/16 15:41 101/57 06/02/16 15:30 101/57 94 06/02/16 15:21 78/38 95 06/02/16 15:11 75/39 45 L 06/02/16 15:01 75/39 06/02/16 14:50 06/02/16 12:55 06/02/16 12:00 70/45 93 - Physical Examination General: No Apparent Distress HEENT: Positive: PERRL Neck: Positive: trachea midline Cardiac: Positive: Reg Rate and Rhythm Lungs: Positive: Decreased Breath Sounds - Labs and Meds CBC 06/03/16 Range/Units 05:00 WBC 16.2 H (4.5-11.0) K/mm3 RBC 4.00 (3.65-5.03) M/mm3 Hgb 10.6 L (11.8-15.2) gm/dl Hct 33.8 L (35.5-45.6) % Plt Count 488 H (140-440) K/mm3 Comprehensive Metabolic Panel 06/03/16 Range/Units 05:00 Sodium 134 L (137-145) mmol/L Potassium 4.7 (3.6-5.0) mmol/L Chloride 98.7 (98-107) mmol/L Carbon Dioxide 16 L (22-30) mmol/L BUN 63 H (9-20) mg/dL Creatinine 2.2 H (0.8-1.5) mg/dL Glucose 129 H (75-100) mg/dL Calcium 7.3 L (8.4-10.2) mg/dL
--- NOTE | 2016-06-03 11:37 | Progress Note ---
Assessment and Plan - Patient Problems (1) Acute hypoxemic respiratory failure Current Visit: Yes Status: Acute Plan to address problem: - continue bronchodilators and pulmonary toilet - deployed qhs BIPAP - continue empiric AB's for pneumonia - continue to wean oxygen to keep sats > 94% - continue aspiration precautions (2) COPD with acute exacerbation Current Visit: Yes Status: Acute Plan to address problem: - tapered off systemic steroids quickly in case of true intra-abdominal / pelvic infection - continue other care as above (3) Liver cancer Current Visit: Yes Status: Acute Qualifiers: Liver malignancy type: L Plan to address problem: - per oncology (4) Severe sepsis Current Visit: Yes Status: Acute Plan to address problem: - on levophed but down to 4 mics/min - continue broad spectrum AB's empirically - ID consulted - continue volume resuscitation (5) SHARON (acute kidney injury) Current Visit: Yes Status: Acute Plan to address problem: - continue IV resuscitation (increased IVNS to 100mls/hr pending nephrology input) - ? contrast nephropathy element - nephrology evaluation ongoing - ordered urine sodium and creatinine to calculate FENA (6) Discharge planning issues Current Visit: No Status: Acute Plan to address problem: - prognosis guarded longe term and with developing severe sepsis ...hopefully home after recovery ....he remains critically ill on life sustaining interventions including vasopressors and at high risk for further deterioration including .....31' CCT Subjective Date of service: 06/03/16 Principal diagnosis: Acute Hypoxemic Respiratory Failure; Acute COPD exacerbation Interval history: Seen and examined at bedside; 24 hour events reviewed; nursing and respiratory care staff consulted; no adverse overnight events reported to me; resting in bed; still some element of delirium; no emesis or overt aspiration; complains of some abdominal pain but tolerating diet this morning; no gross bleeding Objective Vital Signs - 12hr 06/02/16 06/02/16 06/02/16 23:41 23:49 23:51 Temperature Pulse Rate 105 H 100 H 101 H Pulse Rate [ Anterior Bilateral Throughout] Pulse Rate [ From Monitor] Respiratory 23 18 20 Rate Respiratory Rate [Anterior Bilateral Throughout] Blood Pressure 97/50 96/54 96/54 O2 Sat by Pulse 90 94 94 Oximetry 06/02/16 06/03/16 06/03/16 23:53 00:00 00:01 Temperature Pulse Rate 104 H 108 H Pulse Rate [ Anterior Bilateral Throughout] Pulse Rate [ 93 H From Monitor] Respiratory 16 20 24 Rate Respiratory Rate [Anterior Bilateral Throughout] Blood Pressure 96/54 97/50 O2 Sat by Pulse 97 97 90 Oximetry 06/03/16 06/03/16 06/03/16 00:11 00:21 00:30 Temperature Pulse Rate 103 H 113 H 102 H Pulse Rate [ Anterior Bilateral Throughout] Pulse Rate [ From Monitor] Respiratory 19 17 22 Rate Respiratory Rate [Anterior Bilateral Throughout] Blood Pressure 97/50 84/48 84/36 O2 Sat by Pulse 94 91 98 Oximetry 06/03/16 06/03/16 06/03/16 00:41 00:51 01:00 Temperature Pulse Rate 101 H 107 H 92 H Pulse Rate [ Anterior Bilateral Throughout] Pulse Rate [ From Monitor] Respiratory 24 26 H 20 Rate Respiratory Rate [Anterior Bilateral Throughout] Blood Pressure 84/36 100/54 92/64 O2 Sat by Pulse 68 L 96 60 L Oximetry 06/03/16 06/03/16 06/03/16 01:11 01:21 01:31 Temperature Pulse Rate 93 H 92 H Pulse Rate [ Anterior Bilateral Throughout] Pulse Rate [ From Monitor] Respiratory 20 19 18 Rate Respiratory Rate [Anterior Bilateral Throughout] Blood Pressure 92/64 110/68 110/68 O2 Sat by Pulse 93 Oximetry 06/03/16 06/03/16 06/03/16 01:41 01:51 02:00 Temperature Pulse Rate 102 H 95 H Pulse Rate [ Anterior Bilateral Throughout] Pulse Rate [ From Monitor] Respiratory 17 23 Rate Respiratory Rate [Anterior Bilateral Throughout] Blood Pressure 110/68 106/62 101/70 O2 Sat by Pulse 95 98 94 Oximetry 06/03/16 06/03/16 06/03/16 02:11 02:21 02:30 Temperature Pulse Rate 96 H 103 H 93 H Pulse Rate [ Anterior Bilateral Throughout] Pulse Rate [ From Monitor] Respiratory 22 25 H 21 Rate Respiratory Rate [Anterior Bilateral Throughout] Blood Pressure 101/70 87/62 103/72 O2 Sat by Pulse 99 94 96 Oximetry 06/03/16 06/03/16 06/03/16 02:41 02:51 03:00 Temperature Pulse Rate 94 H 98 H 93 H Pulse Rate [ Anterior Bilateral Throughout] Pulse Rate [ From Monitor] Respiratory 20 23 19 Rate Respiratory Rate [Anterior Bilateral Throughout] Blood Pressure 103/72 105/69 102/70 O2 Sat by Pulse 99 96 99 Oximetry 06/03/16 06/03/16 06/03/16 03:11 03:21 03:30 Temperature Pulse Rate 112 H 96 H 91 H Pulse Rate [ Anterior Bilateral Throughout] Pulse Rate [ From Monitor] Respiratory 21 24 21 Rate Respiratory Rate [Anterior Bilateral Throughout] Blood Pressure 102/70 106/61 100/70 O2 Sat by Pulse 100 97 99 Oximetry 06/03/16 06/03/16 06/03/16 03:41 03:51 04:00 Temperature Pulse Rate 92 H 102 H Pulse Rate [ Anterior Bilateral Throughout] Pulse Rate [ 100 H From Monitor] Respiratory 20 25 H 24 Rate Respiratory Rate [Anterior Bilateral Throughout] Blood Pressure 100/70 117/72 O2 Sat by Pulse 100 91 96 Oximetry 06/03/16 06/03/16 06/03/16 04:01 04:11 04:21 Temperature Pulse Rate 106 H 116 H 109 H Pulse Rate [ Anterior Bilateral Throughout] Pulse Rate [ From Monitor] Respiratory 21 35 H 35 H Rate Respiratory Rate [Anterior Bilateral Throughout] Blood Pressure 117/72 117/72 99/41 O2 Sat by Pulse 95 68 L 100 Oximetry 06/03/16 06/03/16 06/03/16 04:30 04:41 04:51 Temperature Pulse Rate 96 H 101 H 93 H Pulse Rate [ Anterior Bilateral Throughout] Pulse Rate [ From Monitor] Respiratory 26 H 20 25 H Rate Respiratory Rate [Anterior Bilateral Throughout] Blood Pressure 112/72 112/72 109/75 O2 Sat by Pulse 99 92 Oximetry 06/03/16 06/03/16 06/03/16 05:00 05:11 05:21 Temperature Pulse Rate 94 H 105 H 93 H Pulse Rate [ Anterior Bilateral Throughout] Pulse Rate [ From Monitor] Respiratory 22 20 22 Rate Respiratory Rate [Anterior Bilateral Throughout] Blood Pressure 108/69 108/69 113/66 O2 Sat by Pulse 85 95 100 Oximetry 06/03/16 06/03/16 06/03/16 05:31 05:41 05:51 Temperature Pulse Rate 107 H 103 H 106 H Pulse Rate [ Anterior Bilateral Throughout] Pulse Rate [ From Monitor] Respiratory 28 H 27 H 27 H Rate Respiratory Rate [Anterior Bilateral Throughout] Blood Pressure 110/78 110/78 106/60 O2 Sat by Pulse 88 99 95 Oximetry 06/03/16 06/03/16 06/03/16 06:00 06:11 06:21 Temperature Pulse Rate 105 H 96 H 98 H Pulse Rate [ Anterior Bilateral Throughout] Pulse Rate [ From Monitor] Respiratory 30 H 24 26 H Rate Respiratory Rate [Anterior Bilateral Throughout] Blood Pressure 100/51 110/78 117/61 O2 Sat by Pulse 100 98 98 Oximetry 06/03/16 06/03/16 06/03/16 06:30 06:41 06:51 Temperature Pulse Rate 111 H 96 H 112 H Pulse Rate [ Anterior Bilateral Throughout] Pulse Rate [ From Monitor] Respiratory 31 H 25 H 31 H Rate Respiratory Rate [Anterior Bilateral Throughout] Blood Pressure 96/50 96/50 108/64 O2 Sat by Pulse 99 96 Oximetry 06/03/16 06/03/16 06/03/16 07:00 07:10 07:20 Temperature Pulse Rate 97 H 94 H 97 H Pulse Rate [ Anterior Bilateral Throughout] Pulse Rate [ From Monitor] Respiratory 22 25 H 25 H Rate Respiratory Rate [Anterior Bilateral Throughout] Blood Pressure 114/62 114/62 105/57 O2 Sat by Pulse 98 99 97 Oximetry 06/03/16 06/03/16 06/03/16 07:30 07:41 07:51 Temperature Pulse Rate 93 H 100 H 109 H Pulse Rate [ Anterior Bilateral Throughout] Pulse Rate [ From Monitor] Respiratory 22 27 H 28 H Rate Respiratory Rate [Anterior Bilateral Throughout] Blood Pressure 112/67 105/57 113/56 O2 Sat by Pulse 100 92 84 Oximetry 06/03/16 06/03/16 06/03/16 08:00 08:11 08:15 Temperature 98.2 F Pulse Rate 100 H 99 H Pulse Rate [ 98 H 96 H Anterior Bilateral Throughout] Pulse Rate [ 100 H From Monitor] Respiratory 22 22 Rate Respiratory 18 16 Rate [Anterior Bilateral Throughout] Blood Pressure 104/61 104/61 O2 Sat by Pulse 93 93 Oximetry 06/03/16 06/03/16 06/03/16 08:21 08:25 08:30 Temperature Pulse Rate 98 H 98 H Pulse Rate [ Anterior Bilateral Throughout] Pulse Rate [ From Monitor] Respiratory 23 22 Rate Respiratory Rate [Anterior Bilateral Throughout] Blood Pressure 111/61 107/62 O2 Sat by Pulse 96 100 81 L Oximetry 06/03/16 06/03/16 06/03/16 08:41 08:51 09:00 Temperature Pulse Rate 112 H 109 H 105 H Pulse Rate [ Anterior Bilateral Throughout] Pulse Rate [ From Monitor] Respiratory 34 H 31 H 18 Rate Respiratory Rate [Anterior Bilateral Throughout] Blood Pressure 107/62 116/60 118/65 O2 Sat by Pulse 100 Oximetry 06/03/16 06/03/16 06/03/16 09:11 09:21 09:25 Temperature Pulse Rate 100 H 106 H 105 H Pulse Rate [ Anterior Bilateral Throughout] Pulse Rate [ From Monitor] Respiratory 22 16 Rate Respiratory Rate [Anterior Bilateral Throughout] Blood Pressure 118/65 113/63 113/63 O2 Sat by Pulse 96 94 Oximetry 06/03/16 06/03/16 06/03/16 09:26 09:27 09:31 Temperature Pulse Rate 106 H 112 H Pulse Rate [ Anterior Bilateral Throughout] Pulse Rate [ From Monitor] Respiratory 24 Rate Respiratory Rate [Anterior Bilateral Throughout] Blood Pressure 113/63 113/63 101/50 O2 Sat by Pulse Oximetry 06/03/16 06/03/16 06/03/16 09:41 09:51 10:00 Temperature Pulse Rate 106 H 104 H 99 H Pulse Rate [ Anterior Bilateral Throughout] Pulse Rate [ From Monitor] Respiratory 24 24 22 Rate Respiratory Rate [Anterior Bilateral Throughout] Blood Pressure 113/63 104/59 89/50 O2 Sat by Pulse Oximetry 06/03/16 10:11 Temperature Pulse Rate 101 H Pulse Rate [ Anterior Bilateral Throughout] Pulse Rate [ From Monitor] Respiratory 21 Rate Respiratory Rate [Anterior Bilateral Throughout] Blood Pressure 89/50 O2 Sat by Pulse 98 Oximetry Constitutional: other (delirious) Eyes: non-icteric ENT: oropharynx moist Neck: supple, no lymphadenopathy Effort: mildly labored Ascultation: Bilateral: diminished breath sounds, rales Cardiovascular: regular rate and rhythm Gastrointestinal: normoactive bowel sounds, soft, tender (mild diffuse), non- distended Integumentary: normal Extremities: no cyanosis, no edema, pink and warm, pulses normal Neurologic: non-focal exam, pupils equal and round, motor strength normal and Psychiatric: other (confused) CBC and BMP: 06/03/16 05:00 06/03/16 05:00 ABG, PT/INR, D-dimer: ABG POC ABG pH 7.317 (7.35-7.45) L 06/02/16 16:10 POC ABG pCO2 27.8 (35-45) L 06/02/16 16:10 POC ABG pO2 63 (80-105) L 06/02/16 16:10 POC ABG HCO3 14.3 06/02/16 16:10 POC ABG Total CO2 15 06/02/16 16:10 POC ABG O2 Sat 90 06/02/16 16:10 PT/INR, D-dimer PT 14.7 Sec. (12.2-14.9) 05/31/16 11:50 INR 1.16 (0.87-1.13) H 05/31/16 11:50 Abnormal lab findings: Abnormal Labs 05/30/16 05/31/16 05/31/16 23:08 04:00 04:00 WBC 12.3 H Hgb Hct MCV 83 L MCH 27 L MCHC RDW 21.4 H Plt Count Seg Neuts % (Manual) 90.0 H Lymphocytes % (Manual) 4.0 L Seg Neutrophils # Man 11.1 H Lymphocytes # (Manual) 0.5 L Monocytes # (Manual) INR POC ABG pH POC ABG pCO2 POC ABG pO2 Sodium 136 L Potassium Chloride Carbon Dioxide 19 L BUN 22 H Creatinine Glucose 147 H POC Glucose Lactic Acid 2.8 H* Calcium 8.3 L C-Reactive Protein 05/31/16 05/31/16 06/01/16 11:50 11:50 06:33 WBC 17.0 H Hgb 10.7 L Hct 32.8 L MCV 82 L MCH 27 L MCHC RDW 21.6 H Plt Count Seg Neuts % (Manual) 98.0 H Lymphocytes % (Manual) 1.0 L Seg Neutrophils # Man 16.7 H Lymphocytes # (Manual) 0.2 L Monocytes # (Manual) INR 1.16 H POC ABG pH POC ABG pCO2 POC ABG pO2 Sodium Potassium Chloride Carbon Dioxide BUN Creatinine Glucose POC Glucose Lactic Acid 4.9 H* Calcium C-Reactive Protein 06/01/16 06/02/16 06/02/16 06:33 06:11 06:11 WBC 18.9 H Hgb 10.3 L Hct 32.9 L MCV MCH 27 L MCHC 31 L RDW 22.7 H Plt Count Seg Neuts % (Manual) 99.0 H Lymphocytes % (Manual) 0 L Seg Neutrophils # Man 18.7 H Lymphocytes # (Manual) 0.0 L Monocytes # (Manual) INR POC ABG pH POC ABG pCO2 POC ABG pO2 Sodium 136 L Potassium 5.1 H Chloride 97.9 L Carbon Dioxide 20 L 18 L BUN 25 H 42 H Creatinine 1.6 H D Glucose 135 H 127 H POC Glucose Lactic Acid Calcium 8.3 L C-Reactive Protein 06/02/16 06/02/16 06/02/16 08:35 16:10 18:20 WBC Hgb Hct MCV MCH MCHC RDW Plt Count Seg Neuts % (Manual) Lymphocytes % (Manual) Seg Neutrophils # Man Lymphocytes # (Manual) Monocytes # (Manual) INR POC ABG pH 7.317 L POC ABG pCO2 27.8 L POC ABG pO2 63 L Sodium Potassium Chloride Carbon Dioxide BUN Creatinine Glucose POC Glucose 127 H Lactic Acid Calcium C-Reactive Protein 4.30 H 06/02/16 06/03/16 06/03/16 18:30 05:00 05:00 WBC 16.2 H Hgb 10.6 L Hct 33.8 L MCV MCH 27 L MCHC RDW 22.1 H Plt Count 488 H Seg Neuts % (Manual) 92.0 H Lymphocytes % (Manual) 1.0 L Seg Neutrophils # Man 14.9 H Lymphocytes # (Manual) 0.2 L Monocytes # (Manual) 1.1 H INR POC ABG pH POC ABG pCO2 POC ABG pO2 Sodium 134 L Potassium Chloride Carbon Dioxide 16 L BUN 63 H Creatinine 2.2 H Glucose 129 H POC Glucose Lactic Acid 5.7 H* Calcium 7.3 L C-Reactive Protein
[2016-06-03] MEDS: NACL 0.9% 1000 ML 1,000 ML IV SCH (12:39)
[2016-06-03] MEDS: VANCOMYCIN/NS 1 GM/250 ML 1 GM/250 ML BAG IV SCH (13:25)
[2016-06-03 13:50] LABS: ISTAT Base Excess -9; ISTAT HCO3 16.4; ISTAT PCO2 30.2 (35-45); ISTAT PH 7.343 (7.35-7.45); ISTAT PO2 66 (80-105); ISTAT SO2 92; ISTAT TCO2 17
[2016-06-03] MEDS: DILAUDID IV PRN ×2 (17:42→23:30)
[2016-06-03] MEDS: ZOFRAN IV PRN (17:43)
--- NOTE | 2016-06-03 19:20 | Consultation ---
History of Present Illness - Reason for Consult Consult date: 06/03/16 sepsis Requesting physician: BENEDICT MACE - History of Present Illness The patient is a 60-year-old male with a history of COPD, HTN, CAD BPH and recently diagnosed liver cancer, who presents for evaluation of dyspnea and cough. The patient reports 2 weeks of progressive dyspnea and cough, dyspnea severe for the past one day, constant, exacerbated with exertion and coughing. He states that his cough has been productive of rivero sputum. He also complains of on and off chest pain , 7/10 in severity, midsternal, aching in quality, exacerbated with coughing and breathing The patient denies fever, trauma to the chest wall, hemoptysis, unilateral leg swelling, recent immobilization. Infectious disease is consulted because of concern for intra abd. infection/ pneumonia and sepsis. Patient seen at bedside. He is unable to give detailed history. He however stated that he came to the hospital because he has been diagnosed with liver cancer. PHYSICAL EXAM VS - Afebrile chest - b/l mild rhonchi cvs - s1s2 abd - bs+ extremities - no edema. LABS - REviewed. See lab section. ASSESSMENT 1. Sepsis 2. pneumonia 3. Possible multiple intra abdominal collections/abscess/malignant foci 4. Liver cancer 5. copd RECOMMENDATION 1. D/C LEVAQUIN AND ADD FLUCONAZOLE. 2. ADJUST THE DOSE OF ZOSYN. 3. BRONCHOSCOPY IF POSSIBLE. 4. AGREE WITH D/C OF STEROIDS. 5. POOR PROGNOSIS Past History Past Medical History: arthritis, CAD, cancer (apparently was diagnosed with liver cancer 1 week ago and his oncologist is Dr. Bravo), COPD, hypertension, hyperlipidemia Past Surgical History: arthroscopy (bilateral rotator cuff repair), total knee replacement, PTCA (with stent), Other (left nephrectomy) Social history: no significant social history (he quit smoking one year ago but apparently still smokes once in a while) Family history: no significant family history Medications and Allergies Allergies Allergy/AdvReac Type Severity Reaction Status Date / Time codeine AdvReac Rash Verified 08/17/15 10:45 Home Medications Medication Instructions Recorded Confirmed Last Taken Type Famotidine [Pepcid] 20 mg PO QDAY #30 tablet 08/19/14 05/30/16 08/18/15 05:59 Rx Ipratropium/Albuterol Sulfate 1 ampul IH Q8HRT #1 mo 08/19/14 05/30/16 08/18/15 05:59 Rx [Duoneb 0.5 mg-3 mg/3 ml Soln] Clopidogrel [Plavix] 75 mg PO QDAY #30 tablet 08/19/15 05/30/16 Unknown Rx Lisinopril [Zestril TAB] 5 mg PO QDAY #30 tablet 08/19/15 05/30/16 Unknown Rx Metoprolol [Lopressor TAB] 50 mg PO BID #60 tablet 08/19/15 05/30/16 Unknown Rx Simvastatin [Zocor TAB] 40 mg PO QHS #30 tablet 08/19/15 05/30/16 Unknown Rx Zolpidem [Ambien] 5 mg PO QHS PRN #15 tablet 08/19/15 05/30/16 Unknown Rx oxyCODONE [Roxicodone TAB] 5 mg PO Q6H PRN #30 tablet 08/19/15 05/30/16 Unknown Rx traMADol [Ultram 50 MG tab] 50 mg PO Q8H PRN #30 tablet 08/19/15 05/30/16 Unknown Rx HYDROcodone/APAP 5-325 [Bullard 1 tab PO Q6H PRN 05/30/16 05/30/16 Unknown History 5-325 mg TAB] Omeprazole 20 mg PO DAILY 05/30/16 05/30/16 Unknown History Active Meds: Active Medications Acetaminophen (Tylenol) 650 mg PO Q4H PRN PRN Reason: Pain MILD(1-3)/Fever >100.5/ALEXANDER Last Admin: 06/02/16 18:29 Dose: 650 mg Albuterol/Ipratropium (Duoneb 0.5 Mg-3 Mg/3 Ml Soln) 1 ampul IH TIDRT [facility] Last Admin: 06/03/16 13:28 Dose: 1 ampul Arformoterol Tartrate (Brovana Nebu) 15 mcg IH Q12HRT [facility] Bisacodyl (Dulcolax) 10 mg OH QDAY PRN PRN Reason: Constipation unrelieved by MOM Budesonide (Pulmicort) 0.5 mg IH Q12HRT [facility] Last Admin: 06/03/16 08:04 Dose: 0.5 mg Clopidogrel Bisulfate (Plavix) 75 mg PO QDAY [facility] Last Admin: 06/03/16 09:25 Dose: 75 mg Enoxaparin Sodium (Lovenox) 40 mg SUB-Q QDAY@2200 [facility] Last Admin: 06/02/16 22:13 Dose: 40 mg Famotidine (Pepcid) 20 mg PO QDAY [facility] Last Admin: 06/03/16 09:25 Dose: 20 mg Hydromorphone HCl (Dilaudid) 1 mg IV Q4H PRN PRN Reason: Pain , Severe (7-10) Last Admin: 06/03/16 17:42 Dose: 1 mg Piperacillin Sod/Tazobactam Sod (Zosyn/Ns 3.375gm/50ml) 3.375 gm in 50 mls @ 100 mls/hr IV Q6HR [facility] Last Admin: 06/03/16 17:14 Dose: 100 mls/hr Levofloxacin/Dextrose (Levaquin 750mg/150ml) 750 mg in 150 mls @ 100 mls/hr IV Q48HR [facility] PRN Reason: Protocol Vancomycin HCl (Vancomycin/Ns 1 Gm/250 Ml) 1 gm in 250 mls @ 166.667 mls/hr IV Q24H [facility] Last Admin: 06/03/16 13:25 Dose: 166.667 mls/hr Sodium Chloride (Nacl 0.9% 1000 Ml) 1,000 mls @ 100 mls/hr IV DIRECT [facility] Last Admin: 06/03/16 12:39 Dose: 100 mls/hr Norepinephrine (Levophed Drip 4 Mg/Ns 250 Ml) 4 mg in 250 mls @ 7.5 mls/hr IV TITR STACIE; 2 MCG/MIN PRN Reason: Protocol Last Admin: 06/03/16 15:57 Dose: 4 mcg/min, 15 mls/hr Isosorbide Mononitrate (Imdur) 30 mg PO QDAY [facility] Last Admin: 06/03/16 09:25 Dose: 30 mg Lisinopril (Zestril) 5 mg PO QDAY [facility] Last Admin: 06/03/16 09:27 Dose: Not Given Magnesium Hydroxide (Milk Of Magnesia) 30 ml PO Q4H PRN PRN Reason: Constipation Metoprolol Tartrate (Lopressor) 25 mg PO BID [facility] Last Admin: 06/03/16 09:26 Dose: Not Given Ondansetron HCl (Zofran) 4 mg IV Q8H PRN PRN Reason: N/V unrelieved by Reglan Last Admin: 06/03/16 17:43 Dose: 4 mg Simvastatin (Zocor) 40 mg PO QHS [facility] Last Admin: 06/02/16 22:13 Dose: 40 mg Vancomycin HCl (Vancomycin Pharmacy To Dose) 1 each IV PKCONSULT STACIE PRN Reason: Protocol Zolpidem Tartrate (Ambien) 5 mg PO QHS PRN PRN Reason: Sleep Last Admin: 06/01/16 21:52 Dose: 5 mg Physical Examination - Constitutional Vitals: Vital Signs Temp Pulse Resp BP Pulse Ox 97.3 F L 99 H 18 85/44 78 L 06/03/16 16:00 06/03/16 18:21 06/03/16 18:21 06/03/16 18:21 06/03/16 18:21 Temperature -Last 24 Hours Temperature 97.3 F Temperature 97.6 F Temperature 98.2 F Results - Labs CBC & Chem 7: 06/03/16 05:00 06/03/16 05:00 Labs: Abnormal lab results 06/02/16 06/02/16 06/03/16 Range/Units 18:20 18:30 05:00 WBC 16.2 H (4.5-11.0) K/mm3 Hgb 10.6 L (11.8-15.2) gm/dl Hct 33.8 L (35.5-45.6) % MCH 27 L (28-32) pg RDW 22.1 H (13.2-15.2) % Plt Count 488 H (140-440) K/mm3 Seg Neuts % (Manual) 92.0 H (40.0-70.0) % Lymphocytes % (Manual) 1.0 L (13.4-35.0) % Seg Neutrophils # Man 14.9 H (1.8-7.7) K/mm3 Lymphocytes # (Manual) 0.2 L (1.2-5.4) K/mm3 Monocytes # (Manual) 1.1 H (0.0-0.8) K/mm3 POC ABG pH (7.35-7.45) POC ABG pCO2 (35-45) POC ABG pO2 (80-105) Sodium (137-145) mmol/L Carbon Dioxide (22-30) mmol/L BUN (9-20) mg/dL Creatinine (0.8-1.5) mg/dL Glucose (75-100) mg/dL Lactic Acid 5.7 H* (0.7-2.0) mmol/L Calcium (8.4-10.2) mg/dL C-Reactive Protein 4.30 H (0.00-1.30) mg/dL Urine Creatinine (0.1-20.0) mg/dL 06/03/16 06/03/16 06/03/16 Range/Units 05:00 12:09 12:13 WBC (4.5-11.0) K/mm3 Hgb (11.8-15.2) gm/dl Hct (35.5-45.6) % MCH (28-32) pg RDW (13.2-15.2) % Plt Count (140-440) K/mm3 Seg Neuts % (Manual) (40.0-70.0) % Lymphocytes % (Manual) (13.4-35.0) % Seg Neutrophils # Man (1.8-7.7) K/mm3 Lymphocytes # (Manual) (1.2-5.4) K/mm3 Monocytes # (Manual) (0.0-0.8) K/mm3 POC ABG pH (7.35-7.45) POC ABG pCO2 (35-45) POC ABG pO2 (80-105) Sodium 134 L (137-145) mmol/L Carbon Dioxide 16 L (22-30) mmol/L BUN 63 H (9-20) mg/dL Creatinine 2.2 H (0.8-1.5) mg/dL Glucose 129 H (75-100) mg/dL Lactic Acid 2.6 H* (0.7-2.0) mmol/L Calcium 7.3 L (8.4-10.2) mg/dL C-Reactive Protein (0.00-1.30) mg/dL Urine Creatinine 125.2 H (0.1-20.0) mg/dL 06/03/16 Range/Units 13:41 WBC (4.5-11.0) K/mm3 Hgb (11.8-15.2) gm/dl Hct (35.5-45.6) % MCH (28-32) pg RDW (13.2-15.2) % Plt Count (140-440) K/mm3 Seg Neuts % (Manual) (40.0-70.0) % Lymphocytes % (Manual) (13.4-35.0) % Seg Neutrophils # Man (1.8-7.7) K/mm3 Lymphocytes # (Manual) (1.2-5.4) K/mm3 Monocytes # (Manual) (0.0-0.8) K/mm3 POC ABG pH 7.343 L (7.35-7.45) POC ABG pCO2 30.2 L (35-45) POC ABG pO2 66 L (80-105) Sodium (137-145) mmol/L Carbon Dioxide (22-30) mmol/L BUN (9-20) mg/dL Creatinine (0.8-1.5) mg/dL Glucose (75-100) mg/dL Lactic Acid (0.7-2.0) mmol/L Calcium (8.4-10.2) mg/dL C-Reactive Protein (0.00-1.30) mg/dL Urine Creatinine (0.1-20.0) mg/dL
[2016-06-03] MEDS: BROVANA NEBU IH SCH (19:59)
[2016-06-03] MEDS: DIFLUCAN 200 MG/100 ML BAG IV SCH (20:48)
[2016-06-03] MEDS: AMBIEN PO PRN (21:57)
[2016-06-03] MEDS: LOVENOX SUB-Q SCH (21:58)
[2016-06-03] MEDS: ZOCOR PO SCH (21:58)
[2016-06-04] MEDS: DILAUDID IV PRN ×2 (03:11→22:29)
[2016-06-04] MEDS: ZOSYN/NS 3.375GM/50ML 3.375 GM/50 ML BAG IV SCH ×3 (06:45→17:27)
[2016-06-04] MEDS: BROVANA NEBU IH SCH ×2 (08:42→19:46)
[2016-06-04] MEDS: DUONEB 0.5 MG-3 MG/3 ML SOLN IH SCH ×3 (08:43→19:46)
[2016-06-04] MEDS: PULMICORT IH SCH ×2 (08:43→19:46)
[2016-06-04] MEDS: IMDUR PO SCH (09:42)
[2016-06-04] MEDS: ZESTRIL PO SCH (09:43)
[2016-06-04] MEDS: PEPCID PO SCH (09:43)
[2016-06-04] MEDS: PLAVIX PO SCH (09:43)
[2016-06-04] MEDS: LOPRESSOR PO SCH (09:43)
[2016-06-04] MEDS ORDERED: LEVAQUIN 750MG/150ML 750 MG/150 ML BAG IV SCH (10:00)
[2016-06-04 10:14] LABS: Albumin 2.1 g/dL (3.9-5); Albumin/Globulin Ratio 0.7 %; BUN/Creatinine Ratio 33.63; Bilirubin,Total 5.1 mg/dL (0.1-1.2); Calcium 6.8 mg/dL (8.4-10.2); Chloride 107.8 mmol/L (98-107); Potassium 5.4 mmol/L (3.6-5.0); Total Protein 5.2 g/dL (6.3-8.2)
--- NOTE | 2016-06-04 10:21 | Progress Note ---
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 Subjective Date of service: 06/04/16 Principal diagnosis: Acute Hypoxemic Respiratory Failure; Acute COPD exacerbation Interval history: No interval changes. Objective Vital Signs Temp Pulse Pulse Pulse Resp Resp BP 06/04/16 09:43 96 H 98/60 06/04/16 09:42 97 H 98/60 06/04/16 08:31 108 H 24 100/50 06/04/16 08:21 93 H 16 104/60 06/04/16 08:11 92 H 14 105/60 06/04/16 08:00 97.4 F L 90 90 13 93/62 06/04/16 07:51 96 H 16 95/57 06/04/16 07:41 91 H 13 90/59 06/04/16 07:30 91 H 13 105/60 06/04/16 07:20 91 H 13 92/61 06/04/16 07:11 91 H 14 79/55 06/04/16 07:00 91 H 13 92/61 06/04/16 06:51 91 H 13 79/55 06/04/16 06:41 93 H 15 74/46 06/04/16 06:31 93 H 15 74/46 06/04/16 06:21 92 H 14 108/68 06/04/16 06:11 91 H 13 84/62 06/04/16 06:00 94 H 14 99/66 06/04/16 05:51 90 12 86/54 06/04/16 05:41 93 H 13 94/56 06/04/16 05:30 91 H 13 84/62 06/04/16 05:21 92 H 12 94/56 06/04/16 05:11 92 H 13 82/51 06/04/16 05:00 92 H 12 98/52 06/04/16 04:51 93 H 13 82/51 06/04/16 04:41 94 H 13 93/63 06/04/16 04:30 98 H 17 93/63 06/04/16 04:21 96 H 16 82/55 06/04/16 04:11 94 H 11 L 96/57 06/04/16 04:00 95 H 100 H 12 96/57 06/04/16 03:51 98 H 12 83/59 06/04/16 03:41 95 H 12 97/59 06/04/16 03:30 95 H 12 97/59 06/04/16 03:21 97 H 15 95/53 06/04/16 03:11 95 H 12 94/43 06/04/16 03:01 101 H 25 H 90/57 06/04/16 02:51 105 H 17 84/48 06/04/16 02:41 102 H 13 91/48 06/04/16 02:30 103 H 14 94/43 06/04/16 02:20 101 H 14 91/48 06/04/16 02:11 105 H 16 89/50 06/04/16 02:00 97 H 20 105/65 06/04/16 01:51 96 H 13 88/52 06/04/16 01:41 96 H 16 91/59 06/04/16 01:30 98 H 13 91/59 06/04/16 01:21 97 H 13 94/51 06/04/16 01:11 97 H 13 89/53 06/04/16 01:00 98 H 13 89/53 06/04/16 00:51 98 H 13 82/54 06/04/16 00:41 99 H 15 90/53 06/04/16 00:30 98 H 14 90/53 06/04/16 00:21 98 H 14 89/53 06/04/16 00:11 103 H 14 93/46 06/04/16 00:00 108 H 19 93/46 06/03/16 23:51 105 H 16 87/52 06/03/16 23:41 108 H 18 106/71 06/03/16 23:30 106 H 21 106/71 06/03/16 23:25 109 H 26 H 105/69 06/03/16 23:21 114 H 27 H 114/61 06/03/16 23:11 106 H 34 H 114/61 06/03/16 23:00 109 H 25 H 114/61 06/03/16 22:51 104 H 18 114/66 06/03/16 22:48 110 H 20 104/62 06/03/16 22:41 113 H 22 104/62 06/03/16 22:30 100 H 20 90/60 06/03/16 22:21 104 H 26 H 108/66 06/03/16 22:11 102 H 22 102/57 06/03/16 22:00 101 H 18 102/57 06/03/16 21:51 107 H 19 92/70 06/03/16 21:41 106 H 14 93/24 06/03/16 21:30 107 H 22 93/24 06/03/16 21:21 104 H 18 105/62 06/03/16 21:11 109 H 43 H 97/64 06/03/16 21:00 99 H 19 97/64 06/03/16 20:51 104 H 19 107/69 06/03/16 20:41 99 H 18 102/60 06/03/16 20:30 98 H 15 102/60 06/03/16 20:25 22 06/03/16 20:21 100 H 20 92/54 06/03/16 20:11 97 H 17 110/62 06/03/16 20:03 06/03/16 20:02 104 H 25 H 06/03/16 20:00 104 H 100 H 21 110/62 06/03/16 19:51 96 H 35 H 105/65 06/03/16 19:41 96 H 26 H 105/65 06/03/16 19:30 101 H 20 105/65 06/03/16 19:20 104 H 24 89/48 06/03/16 19:11 98/59 06/03/16 19:00 98/59 06/03/16 18:51 99 H 18 85/53 06/03/16 18:41 105 H 19 85/53 06/03/16 18:30 100 H 17 85/53 06/03/16 18:21 99 H 18 85/44 06/03/16 18:11 101 H 20 101/50 06/03/16 18:00 106 H 21 101/50 06/03/16 17:51 98 H 17 94/54 06/03/16 17:41 100 H 20 100/66 06/03/16 17:30 101 H 26 H 100/66 06/03/16 17:21 101 H 25 H 92/62 06/03/16 17:11 105 H 25 H 95/62 06/03/16 17:00 105 H 31 H 95/62 06/03/16 16:51 113 H 32 H 104/64 06/03/16 16:41 99 H 25 H 96/63 06/03/16 16:30 98 H 24 96/63 06/03/16 16:21 101 H 25 H 104/64 06/03/16 16:11 101 H 25 H 84/54 06/03/16 16:00 97.3 F L 108 H 108 H 30 H 84/54 06/03/16 15:51 109 H 19 108/67 06/03/16 15:41 99 H 26 H 108/67 06/03/16 15:30 100 H 26 H 108/67 06/03/16 15:21 102 H 27 H 94/62 06/03/16 15:11 100 H 26 H 94/62 06/03/16 15:00 98 H 26 H 94/62 06/03/16 14:51 103 H 28 H 99/55 06/03/16 14:40 102 H 29 H 99/62 06/03/16 14:30 105 H 31 H 99/62 06/03/16 14:20 102 H 27 H 99/55 06/03/16 14:11 109 H 30 H 102/53 06/03/16 14:00 105 H 26 H 102/53 06/03/16 13:51 103 H 26 H 106/47 06/03/16 13:45 96 H 16 06/03/16 13:41 105 H 24 89/53 06/03/16 13:30 106 H 28 H 89/53 06/03/16 13:29 94 H 16 06/03/16 13:21 106 H 27 H 96/57 06/03/16 13:11 105 H 29 H 98/61 06/03/16 13:00 106 H 27 H 98/61 06/03/16 12:51 104 H 24 99/61 06/03/16 12:41 106 H 22 109/65 06/03/16 12:30 100 H 19 109/65 06/03/16 12:21 99 H 20 95/59 06/03/16 12:11 101 H 23 99/59 06/03/16 12:01 100 H 19 99/59 06/03/16 12:00 97.6 F 100 H 19 06/03/16 11:51 98 H 17 93/56 06/03/16 11:41 107 H 25 H 96/45 06/03/16 11:30 108 H 24 91/46 06/03/16 11:21 111 H 28 H 97/49 06/03/16 11:11 101 H 19 93/49 06/03/16 11:00 101 H 22 93/49 06/03/16 10:51 104 H 26 H 92/42 06/03/16 10:41 102 H 23 99/59 06/03/16 10:30 108 H 25 H 99/59 06/03/16 10:21 103 H 19 87/50 Pulse Ox 06/04/16 09:43 06/04/16 09:42 06/04/16 08:31 95 06/04/16 08:21 06/04/16 08:11 98 06/04/16 08:00 97 06/04/16 07:51 96 06/04/16 07:41 97 06/04/16 07:30 98 06/04/16 07:20 98 06/04/16 07:11 96 06/04/16 07:00 70 L 06/04/16 06:51 97 06/04/16 06:41 95 06/04/16 06:31 68 L 06/04/16 06:21 98 06/04/16 06:11 97 06/04/16 06:00 98 06/04/16 05:51 97 06/04/16 05:41 98 06/04/16 05:30 95 06/04/16 05:21 96 06/04/16 05:11 96 06/04/16 05:00 06/04/16 04:51 97 06/04/16 04:41 97 06/04/16 04:30 93 06/04/16 04:21 99 06/04/16 04:11 96 06/04/16 04:00 96 06/04/16 03:51 94 06/04/16 03:41 97 06/04/16 03:30 06/04/16 03:21 94 06/04/16 03:11 96 06/04/16 03:01 95 06/04/16 02:51 88 06/04/16 02:41 65 L 06/04/16 02:30 66 L 06/04/16 02:20 68 L 06/04/16 02:11 66 L 06/04/16 02:00 06/04/16 01:51 97 06/04/16 01:41 90 06/04/16 01:30 06/04/16 01:21 96 06/04/16 01:11 95 06/04/16 01:00 06/04/16 00:51 95 06/04/16 00:41 95 06/04/16 00:30 06/04/16 00:21 95 06/04/16 00:11 80 L 06/04/16 00:00 74 L 06/03/16 23:51 69 L 06/03/16 23:41 65 L 06/03/16 23:30 93 06/03/16 23:25 96 06/03/16 23:21 90 06/03/16 23:11 92 06/03/16 23:00 91 06/03/16 22:51 92 06/03/16 22:48 91 06/03/16 22:41 94 06/03/16 22:30 99 06/03/16 22:21 96 06/03/16 22:11 98 06/03/16 22:00 06/03/16 21:51 93 06/03/16 21:41 66 L 06/03/16 21:30 75 L 06/03/16 21:21 77 L 06/03/16 21:11 76 L 06/03/16 21:00 98 06/03/16 20:51 97 06/03/16 20:41 98 06/03/16 20:30 98 06/03/16 20:25 06/03/16 20:21 97 06/03/16 20:11 90 06/03/16 20:03 100 06/03/16 20:02 06/03/16 20:00 89 06/03/16 19:51 98 06/03/16 19:41 97 06/03/16 19:30 90 06/03/16 19:20 86 06/03/16 19:11 95 06/03/16 19:00 92 06/03/16 18:51 92 06/03/16 18:41 87 06/03/16 18:30 80 L 06/03/16 18:21 78 L 06/03/16 18:11 71 L 06/03/16 18:00 95 06/03/16 17:51 93 06/03/16 17:41 93 06/03/16 17:30 94 06/03/16 17:21 95 06/03/16 17:11 93 06/03/16 17:00 88 06/03/16 16:51 83 L 06/03/16 16:41 94 06/03/16 16:30 06/03/16 16:21 95 06/03/16 16:11 96 06/03/16 16:00 90 06/03/16 15:51 94 06/03/16 15:41 94 06/03/16 15:30 93 06/03/16 15:21 93 06/03/16 15:11 95 06/03/16 15:00 95 06/03/16 14:51 94 06/03/16 14:40 95 06/03/16 14:30 94 06/03/16 14:20 94 06/03/16 14:11 93 06/03/16 14:00 95 06/03/16 13:51 96 06/03/16 13:45 06/03/16 13:41 92 06/03/16 13:30 95 06/03/16 13:29 06/03/16 13:21 93 06/03/16 13:11 93 06/03/16 13:00 92 06/03/16 12:51 93 06/03/16 12:41 91 06/03/16 12:30 06/03/16 12:21 96 06/03/16 12:11 94 06/03/16 12:01 06/03/16 12:00 94 06/03/16 11:51 89 06/03/16 11:41 68 L 06/03/16 11:30 06/03/16 11:21 69 L 06/03/16 11:11 94 06/03/16 11:00 92 06/03/16 10:51 93 06/03/16 10:41 93 06/03/16 10:30 06/03/16 10:21 - Physical Examination General: No Apparent Distress HEENT: Positive: PERRL Neck: Positive: trachea midline Cardiac: Positive: Tachycardia Lungs: Positive: Decreased Breath Sounds - Labs and Meds Cardiac Enzymes 06/04/16 Range/Units 08:11 AST 633 H (5-40) units/L Comprehensive Metabolic Panel 06/04/16 Range/Units 08:11 Sodium 142 D (137-145) mmol/L Potassium 5.4 H (3.6-5.0) mmol/L Chloride 107.8 H (98-107) mmol/L Carbon Dioxide 19 L (22-30) mmol/L BUN 74 H (9-20) mg/dL Creatinine 2.2 H (0.8-1.5) mg/dL Glucose 130 H (75-100) mg/dL Calcium 6.8 L (8.4-10.2) mg/dL AST 633 H (5-40) units/L ALT 555 H (7-56) units/L Alkaline Phosphatase 487 H (35-129) units/L Total Protein 5.2 L (6.3-8.2) g/dL Albumin 2.1 L (3.9-5) g/dL
--- NOTE | 2016-06-04 10:39 | Progress Note ---
Assessment and Plan Assessment and plan: 60-year-old male with a past medical history of liver cancer and chemotherapy who is admitted to the ICU with sepsis. 1. Acute hypoxic presents for a failure Continue oxygen supplementation 2. COPD exacerbation Pulmonary input appreciated, continues nebs and abx, and taper off steroids given suspicion of intra-abdominal infection 3. Severe sepsis with shock Continue pressors, continue broad-spectrum antibiotics, Source appears to pneumonia and or left retroperitoneal infection ID input appreciated, continue zosyn and fluconazole 4. Acute kidney injury Multifactorial was likely due to ATN and/or vasomotor nephropathy Continue hydration, nephrology input appreciated 5. Hyperkalemia given hypotension, would avoid kayexalate rx with Ca Gluconate, Insulin and [id number] Critical care time 32 minutes History Interval history: He continues to be pressor dependent, waxing and waning periods of confusion. Hospitalist Physical - Physical exam Narrative exam: General: Toxic appearance HEENT: MMM, EOMI cardiac: S1-S2 heard lungs: clear to auscultation, abdomen: soft, nontender, nondistended bowel sounds positive extremities: no edema clubbing or cyanosis Poor capillary refill Skin: Dry skin, maculopapular rash present Neuro: Confused, at times agitated, moves all extremities - Constitutional Vitals: Temp Pulse Resp BP Pulse Ox 97.4 F L 96 H 24 98/60 95 06/04/16 08:00 06/04/16 09:43 06/04/16 08:31 06/04/16 09:43 06/04/16 08:31 General appearance: Present: mild distress, disheveled Results - Labs CBC & Chem 7: 06/05/16 08:30 06/05/16 10:41 Labs: Laboratory Last Values WBC 16.2 K/mm3 (4.5-11.0) H 06/03/16 05:00 RBC 4.00 M/mm3 (3.65-5.03) 06/03/16 05:00 Hgb 10.6 gm/dl (11.8-15.2) L 06/03/16 05:00 Hct 33.8 % (35.5-45.6) L 06/03/16 05:00 MCV 85 fl (84-94) 06/03/16 05:00 MCH 27 pg (28-32) L 06/03/16 05:00 MCHC 32 % (32-34) 06/03/16 05:00 RDW 22.1 % (13.2-15.2) H 06/03/16 05:00 Plt Count 488 K/mm3 (140-440) H 06/03/16 05:00 Lymph % (Auto) 5.8 % (13.4-35.0) L 05/30/16 14:10 [place] % (Auto) 8.9 % (0.0-7.3) H 05/30/16 14:10 Eos % (Auto) 1.4 % (0.0-4.3) 05/30/16 14:10 Baso % (Auto) 0.8 % (0.0-1.8) 05/30/16 14:10 Lymph # 0.8 K/mm3 (1.2-5.4) L 05/30/16 14:10 [place] # 1.3 K/mm3 (0.0-0.8) H 05/30/16 14:10 Eos # 0.2 K/mm3 (0.0-0.4) 05/30/16 14:10 Baso # 0.1 K/mm3 (0.0-0.1) 05/30/16 14:10 Add Manual Diff Complete 06/03/16 05:00 Total Counted 100 06/03/16 05:00 Seg Neutrophils % Supervisor [employer]ing 06/03/16 05:00 Seg Neuts % (Manual) 92.0 % (40.0-70.0) H 06/03/16 05:00 Band Neutrophils % 0 % 06/03/16 05:00 Lymphocytes % (Manual) 1.0 % (13.4-35.0) L 06/03/16 05:00 Reactive Lymphs % (Man) 0 % 06/03/16 05:00 Monocytes % (Manual) 7.0 % (0.0-7.3) 06/03/16 05:00 Eosinophils % (Manual) 0 % (0.0-4.3) 06/03/16 05:00 Basophils % (Manual) 0 % (0.0-1.8) 06/03/16 05:00 Metamyelocytes % 0 % 06/03/16 05:00 Myelocytes % 0 % 06/03/16 05:00 Promyelocytes % 0 % 06/03/16 05:00 Blast Cells % 0 % 06/03/16 05:00 Nucleated RBC % Not Reportable 06/03/16 05:00 Seg Neutrophils # 12.1 K/mm3 (1.8-7.7) H 05/30/16 14:10 Seg Neutrophils # Man 14.9 K/mm3 (1.8-7.7) H 06/03/16 05:00 Band Neutrophils # 0.0 K/mm3 06/03/16 05:00 Lymphocytes # (Manual) 0.2 K/mm3 (1.2-5.4) L 06/03/16 05:00 Abs React Lymphs (Man) 0.0 K/mm3 06/03/16 05:00 Monocytes # (Manual) 1.1 K/mm3 (0.0-0.8) H 06/03/16 05:00 Eosinophils # (Manual) 0.0 K/mm3 (0.0-0.4) 06/03/16 05:00 Basophils # (Manual) 0.0 K/mm3 (0.0-0.1) 06/03/16 05:00 Metamyelocytes # 0.0 K/mm3 06/03/16 05:00 Myelocytes # 0.0 K/mm3 06/03/16 05:00 Promyelocytes # 0.0 K/mm3 06/03/16 05:00 Blast Cells # 0.0 K/mm3 06/03/16 05:00 WBC Morphology Not Reportable 06/03/16 05:00 Hypersegmented Neuts Not Reportable 06/03/16 05:00 Hyposegmented Neuts Not Reportable 06/03/16 05:00 Hypogranular Neuts Not Reportable 06/03/16 05:00 Smudge Cells Not Reportable 06/03/16 05:00 Toxic Granulation Not Reportable 06/03/16 05:00 Toxic Vacuolation Not Reportable 06/03/16 05:00 Dohle Bodies Not Reportable 06/03/16 05:00 Pelger-Huet Anomaly Not Reportable 06/03/16 05:00 Irving Rods Not Reportable 06/03/16 05:00 Platelet Estimate Appears normal 06/03/16 05:00 Clumped Platelets Not Reportable 06/03/16 05:00 Plt Clumps, EDTA Not Reportable 06/03/16 05:00 Large Platelets Not Reportable 06/03/16 05:00 Giant Platelets Not Reportable 06/03/16 05:00 Platelet Satelliting Not Reportable 06/03/16 05:00 Plt Morphology Comment Not Reportable 06/03/16 05:00 RBC Morphology Not Reportable 06/03/16 05:00 Dimorphic RBCs Not Reportable 06/03/16 05:00 Polychromasia Not Reportable 06/03/16 05:00 Hypochromasia Not Reportable 06/03/16 05:00 Poikilocytosis Not Reportable 06/03/16 05:00 Anisocytosis 1+ 06/03/16 05:00 Microcytosis Not Reportable 06/03/16 05:00 Macrocytosis Not Reportable 06/03/16 05:00 Spherocytes Not Reportable 06/03/16 05:00 Pappenheimer Bodies Not Reportable 06/03/16 05:00 Sickle Cells Not Reportable 06/03/16 05:00 Target Cells Not Reportable 06/03/16 05:00 Tear Drop Cells Not Reportable 06/03/16 05:00 Ovalocytes Not Reportable 06/03/16 05:00 Helmet Cells Not Reportable 06/03/16 05:00 [place] Bodies Not Reportable 06/03/16 05:00 [place] Rings Not Reportable 06/03/16 05:00 Kal Cells Not Reportable 06/03/16 05:00 Bite Cells Not Reportable 06/03/16 05:00 Crenated Cell Not Reportable 06/03/16 05:00 Elliptocytes Not Reportable 06/03/16 05:00 Acanthocytes (Spur) Not Reportable 06/03/16 05:00 Rouleaux Not Reportable 06/03/16 05:00 Hemoglobin C Crystals Not Reportable 06/03/16 05:00 Schistocytes Not Reportable 06/03/16 05:00 Malaria parasites Not Reportable 06/03/16 05:00 Carlos Bodies Not Reportable 06/03/16 05:00 Hem Pathologist Commnt No 06/03/16 05:00 PT 14.7 Sec. (12.2-14.9) 05/31/16 11:50 INR 1.16 (0.87-1.13) H 05/31/16 11:50 APTT 30.1 Sec. (24.2-36.6) 05/31/16 11:50 POC ABG pH 7.343 (7.35-7.45) L 06/03/16 13:41 POC ABG pCO2 30.2 (35-45) L 06/03/16 13:41 POC ABG pO2 66 (80-105) L 06/03/16 13:41 POC ABG HCO3 16.4 06/03/16 13:41 POC ABG Total CO2 17 06/03/16 13:41 POC ABG O2 Sat 92 06/03/16 13:41 POC ABG Base Excess -9 06/03/16 13:41 FiO2 40 % 06/03/16 13:41 Sodium 142 mmol/L (137-145) D 06/04/16 08:11 Potassium 5.4 mmol/L (3.6-5.0) H 06/04/16 08:11 Chloride 107.8 mmol/L (98-107) H 06/04/16 08:11 Carbon Dioxide 19 mmol/L (22-30) L 06/04/16 08:11 Anion Gap 21 mmol/L 06/04/16 08:11 BUN 74 mg/dL (9-20) H 06/04/16 08:11 Creatinine 2.2 mg/dL (0.8-1.5) H 06/04/16 08:11 Estimated GFR 31 ml/min 06/04/16 08:11 BUN/Creatinine Ratio 33.63 % 06/04/16 08:11 Glucose 130 mg/dL (75-100) H 06/04/16 08:11 POC Glucose 127 (70-105) H 06/02/16 08:35 Lactic Acid 2.0 mmol/L (0.7-2.0) 06/04/16 06:00 Calcium 6.8 mg/dL (8.4-10.2) L 06/04/16 08:11 Total Bilirubin 5.1 mg/dL (0.1-1.2) H 06/04/16 08:11 AST 633 units/L (5-40) H 06/04/16 08:11 ALT 555 units/L (7-56) H 06/04/16 08:11 Alkaline Phosphatase 487 units/L (35-129) H 06/04/16 08:11 Troponin T 0.024 ng/mL (0.00-0.029) 05/30/16 14:10 C-Reactive Protein 4.30 mg/dL (0.00-1.30) H 06/02/16 18:20 NT-Pro-B Natriuret Pep 7293 pg/mL (0-900) H 05/30/16 18:15 Total Protein 5.2 g/dL (6.3-8.2) L 06/04/16 08:11 Albumin 2.1 g/dL (3.9-5) L 06/04/16 08:11 Albumin/Globulin Ratio 0.7 % 06/04/16 08:11 Urine Creatinine 8.5 mg/dL (0.1-20.0) 06/04/16 06:00 Urine Sodium 12 mEq/L 06/04/16 06:00
--- NOTE | 2016-06-04 10:41 | Progress Note ---
Assessment and Plan - Patient Problems (1) Acute hypoxemic respiratory failure Current Visit: Yes Status: Acute Plan to address problem: - continue bronchodilators and pulmonary toilet - continue qhs BIPAP - continue empiric AB's for pneumonia - continue to wean oxygen to keep sats > 94% - continue aspiration precautions - recommend conservative fluid resuscitation at this point to prevent non- cardiogenic pulmonary edema (2) COPD with acute exacerbation Current Visit: Yes Status: Acute Plan to address problem: - tapered off systemic steroids quickly in case of true intra-abdominal / pelvic infection - continue other care as above (3) Liver cancer Current Visit: Yes Status: Acute Qualifiers: Liver malignancy type: L Plan to address problem: - per oncology - suspect increased LFT's related to shock liver also (4) Severe sepsis Current Visit: Yes Status: Acute Plan to address problem: - remains on levophed but down to 2 mics/min - continue broad spectrum AB's empirically - ID consulted - continue volume resuscitation but conservatively as normal lactate suggests adequate volume resuscitation (5) SHARON (acute kidney injury) Current Visit: Yes Status: Acute Plan to address problem: - continue IV resuscitation (but avoid overhydration at this point) - ? 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 ...hopefully home after recovery ....he remains critically ill on life sustaining interventions including vasopressors and at high risk for further deterioration including .....30' CCT Subjective Date of service: 06/04/16 Principal diagnosis: Acute Hypoxemic Respiratory Failure; Acute COPD exacerbation Interval history: Seen and examined at bedside; 24 hour events reviewed; nursing and respiratory care staff consulted; no adverse overnight events reported to me; resting in bed ; still a little delirious and pulling at venti-mask; thirsty; denies acute chest pains; no hemoptysis Objective Vital Signs - 12hr 06/03/16 06/03/16 06/03/16 22:48 22:51 23:00 Temperature Pulse Rate 110 H 104 H 109 H Pulse Rate [ From Monitor] Respiratory 20 18 25 H Rate Blood Pressure 104/62 114/66 114/61 O2 Sat by Pulse 91 92 91 Oximetry 06/03/16 06/03/16 06/03/16 23:11 23:21 23:25 Temperature Pulse Rate 106 H 114 H 109 H Pulse Rate [ From Monitor] Respiratory 34 H 27 H 26 H Rate Blood Pressure 114/61 114/61 105/69 O2 Sat by Pulse 92 90 96 Oximetry 06/03/16 06/03/16 06/03/16 23:30 23:41 23:51 Temperature Pulse Rate 106 H 108 H 105 H Pulse Rate [ From Monitor] Respiratory 21 18 16 Rate Blood Pressure 106/71 106/71 87/52 O2 Sat by Pulse 93 65 L 69 L Oximetry 06/04/16 06/04/16 06/04/16 00:00 00:11 00:21 Temperature Pulse Rate 108 H 103 H 98 H Pulse Rate [ From Monitor] Respiratory 19 14 14 Rate Blood Pressure 93/46 93/46 89/53 O2 Sat by Pulse 74 L 80 L 95 Oximetry 06/04/16 06/04/16 06/04/16 00:30 00:41 00:51 Temperature Pulse Rate 98 H 99 H 98 H Pulse Rate [ From Monitor] Respiratory 14 15 13 Rate Blood Pressure 90/53 90/53 82/54 O2 Sat by Pulse 95 95 Oximetry 06/04/16 06/04/16 06/04/16 01:00 01:11 01:21 Temperature Pulse Rate 98 H 97 H 97 H Pulse Rate [ From Monitor] Respiratory 13 13 13 Rate Blood Pressure 89/53 89/53 94/51 O2 Sat by Pulse 95 96 Oximetry 06/04/16 06/04/16 06/04/16 01:30 01:41 01:51 Temperature Pulse Rate 98 H 96 H 96 H Pulse Rate [ From Monitor] Respiratory 13 16 13 Rate Blood Pressure 91/59 91/59 88/52 O2 Sat by Pulse 90 97 Oximetry 06/04/16 06/04/16 06/04/16 02:00 02:11 02:20 Temperature Pulse Rate 97 H 105 H 101 H Pulse Rate [ From Monitor] Respiratory 20 16 14 Rate Blood Pressure 105/65 89/50 91/48 O2 Sat by Pulse 66 L 68 L Oximetry 06/04/16 06/04/16 06/04/16 02:30 02:41 02:51 Temperature Pulse Rate 103 H 102 H 105 H Pulse Rate [ From Monitor] Respiratory 14 13 17 Rate Blood Pressure 94/43 91/48 84/48 O2 Sat by Pulse 66 L 65 L 88 Oximetry 06/04/16 06/04/16 06/04/16 03:01 03:11 03:21 Temperature Pulse Rate 101 H 95 H 97 H Pulse Rate [ From Monitor] Respiratory 25 H 12 15 Rate Blood Pressure 90/57 94/43 95/53 O2 Sat by Pulse 95 96 94 Oximetry 06/04/16 06/04/16 06/04/16 03:30 03:41 03:51 Temperature Pulse Rate 95 H 95 H 98 H Pulse Rate [ From Monitor] Respiratory 12 12 12 Rate Blood Pressure 97/59 97/59 83/59 O2 Sat by Pulse 97 94 Oximetry 06/04/16 06/04/16 06/04/16 04:00 04:11 04:21 Temperature Pulse Rate 95 H 94 H 96 H Pulse Rate [ 100 H From Monitor] Respiratory 12 11 L 16 Rate Blood Pressure 96/57 96/57 82/55 O2 Sat by Pulse 96 96 99 Oximetry 06/04/16 06/04/16 06/04/16 04:30 04:41 04:51 Temperature Pulse Rate 98 H 94 H 93 H Pulse Rate [ From Monitor] Respiratory 17 13 13 Rate Blood Pressure 93/63 93/63 82/51 O2 Sat by Pulse 93 97 97 Oximetry 06/04/16 06/04/16 06/04/16 05:00 05:11 05:21 Temperature Pulse Rate 92 H 92 H 92 H Pulse Rate [ From Monitor] Respiratory 12 13 12 Rate Blood Pressure 98/52 82/51 94/56 O2 Sat by Pulse 96 96 Oximetry 06/04/16 06/04/16 06/04/16 05:30 05:41 05:51 Temperature Pulse Rate 91 H 93 H 90 Pulse Rate [ From Monitor] Respiratory 13 13 12 Rate Blood Pressure 84/62 94/56 86/54 O2 Sat by Pulse 95 98 97 Oximetry 06/04/16 06/04/16 06/04/16 06:00 06:11 06:21 Temperature Pulse Rate 94 H 91 H 92 H Pulse Rate [ From Monitor] Respiratory 14 13 14 Rate Blood Pressure 99/66 84/62 108/68 O2 Sat by Pulse 98 97 98 Oximetry 06/04/16 06/04/16 06/04/16 06:31 06:41 06:51 Temperature Pulse Rate 93 H 93 H 91 H Pulse Rate [ From Monitor] Respiratory 15 15 13 Rate Blood Pressure 74/46 74/46 79/55 O2 Sat by Pulse 68 L 95 97 Oximetry 06/04/16 06/04/16 06/04/16 07:00 07:11 07:20 Temperature Pulse Rate 91 H 91 H 91 H Pulse Rate [ From Monitor] Respiratory 13 14 13 Rate Blood Pressure 92/61 79/55 92/61 O2 Sat by Pulse 70 L 96 98 Oximetry 06/04/16 06/04/16 06/04/16 07:30 07:41 07:51 Temperature Pulse Rate 91 H 91 H 96 H Pulse Rate [ From Monitor] Respiratory 13 13 16 Rate Blood Pressure 105/60 90/59 95/57 O2 Sat by Pulse 98 97 96 Oximetry 06/04/16 06/04/16 06/04/16 08:00 08:11 08:21 Temperature 97.4 F L Pulse Rate 90 92 H 93 H Pulse Rate [ 90 From Monitor] Respiratory 13 14 16 Rate Blood Pressure 93/62 105/60 104/60 O2 Sat by Pulse 97 98 Oximetry 06/04/16 06/04/16 06/04/16 08:31 09:42 09:43 Temperature Pulse Rate 108 H 97 H 96 H Pulse Rate [ From Monitor] Respiratory 24 Rate Blood Pressure 100/50 98/60 98/60 O2 Sat by Pulse 95 Oximetry Constitutional: other (delirious) Eyes: non-icteric ENT: oropharynx moist Neck: supple, no lymphadenopathy Effort: mildly labored Ascultation: Bilateral: diminished breath sounds, rales Cardiovascular: regular rate and rhythm Gastrointestinal: normoactive bowel sounds, soft, tender (mild diffuse), non- distended Integumentary: normal Extremities: no cyanosis, no edema, pink and warm, pulses normal Neurologic: non-focal exam, pupils equal and round, motor strength normal and Psychiatric: other (confused) CBC and BMP: 06/03/16 05:00 06/04/16 08:11 ABG, PT/INR, D-dimer: ABG POC ABG pH 7.343 (7.35-7.45) L 06/03/16 13:41 POC ABG pCO2 30.2 (35-45) L 06/03/16 13:41 POC ABG pO2 66 (80-105) L 06/03/16 13:41 POC ABG HCO3 16.4 06/03/16 13:41 POC ABG Total CO2 17 06/03/16 13:41 POC ABG O2 Sat 92 06/03/16 13:41 PT/INR, D-dimer PT 14.7 Sec. (12.2-14.9) 05/31/16 11:50 INR 1.16 (0.87-1.13) H 05/31/16 11:50 Abnormal lab findings: Abnormal Labs 05/30/16 05/31/16 05/31/16 23:08 04:00 04:00 WBC 12.3 H Hgb Hct MCV 83 L MCH 27 L MCHC RDW 21.4 H Plt Count Seg Neuts % (Manual) 90.0 H Lymphocytes % (Manual) 4.0 L Seg Neutrophils # Man 11.1 H Lymphocytes # (Manual) 0.5 L Monocytes # (Manual) INR POC ABG pH POC ABG pCO2 POC ABG pO2 Sodium 136 L Potassium Chloride Carbon Dioxide 19 L BUN 22 H Creatinine Glucose 147 H POC Glucose Lactic Acid 2.8 H* Calcium 8.3 L Total Bilirubin AST ALT Alkaline Phosphatase C-Reactive Protein Total Protein Albumin Urine Creatinine 05/31/16 05/31/16 06/01/16 11:50 11:50 06:33 WBC 17.0 H Hgb 10.7 L Hct 32.8 L MCV 82 L MCH 27 L MCHC RDW 21.6 H Plt Count Seg Neuts % (Manual) 98.0 H Lymphocytes % (Manual) 1.0 L Seg Neutrophils # Man 16.7 H Lymphocytes # (Manual) 0.2 L Monocytes # (Manual) INR 1.16 H POC ABG pH POC ABG pCO2 POC ABG pO2 Sodium Potassium Chloride Carbon Dioxide BUN Creatinine Glucose POC Glucose Lactic Acid 4.9 H* Calcium Total Bilirubin AST ALT Alkaline Phosphatase C-Reactive Protein Total Protein Albumin Urine Creatinine 06/01/16 06/02/16 06/02/16 06:33 06:11 06:11 WBC 18.9 H Hgb 10.3 L Hct 32.9 L MCV MCH 27 L MCHC 31 L RDW 22.7 H Plt Count Seg Neuts % (Manual) 99.0 H Lymphocytes % (Manual) 0 L Seg Neutrophils # Man 18.7 H Lymphocytes # (Manual) 0.0 L Monocytes # (Manual) INR POC ABG pH POC ABG pCO2 POC ABG pO2 Sodium 136 L Potassium 5.1 H Chloride 97.9 L Carbon Dioxide 20 L 18 L BUN 25 H 42 H Creatinine 1.6 H D Glucose 135 H 127 H POC Glucose Lactic Acid Calcium 8.3 L Total Bilirubin AST ALT Alkaline Phosphatase C-Reactive Protein Total Protein Albumin Urine Creatinine 06/02/16 06/02/16 06/02/16 08:35 16:10 18:20 WBC Hgb Hct MCV MCH MCHC RDW Plt Count Seg Neuts % (Manual) Lymphocytes % (Manual) Seg Neutrophils # Man Lymphocytes # (Manual) Monocytes # (Manual) INR POC ABG pH 7.317 L POC ABG pCO2 27.8 L POC ABG pO2 63 L Sodium Potassium Chloride Carbon Dioxide BUN Creatinine Glucose POC Glucose 127 H Lactic Acid Calcium Total Bilirubin AST ALT Alkaline Phosphatase C-Reactive Protein 4.30 H Total Protein Albumin Urine Creatinine 06/02/16 06/03/16 06/03/16 18:30 05:00 05:00 WBC 16.2 H Hgb 10.6 L Hct 33.8 L MCV MCH 27 L MCHC RDW 22.1 H Plt Count 488 H Seg Neuts % (Manual) 92.0 H Lymphocytes % (Manual) 1.0 L Seg Neutrophils # Man 14.9 H Lymphocytes # (Manual) 0.2 L Monocytes # (Manual) 1.1 H INR POC ABG pH POC ABG pCO2 POC ABG pO2 Sodium 134 L Potassium Chloride Carbon Dioxide 16 L BUN 63 H Creatinine 2.2 H Glucose 129 H POC Glucose Lactic Acid 5.7 H* Calcium 7.3 L Total Bilirubin AST ALT Alkaline Phosphatase C-Reactive Protein Total Protein Albumin Urine Creatinine 06/03/16 06/03/16 06/03/16 12:09 12:13 13:41 WBC Hgb Hct MCV MCH MCHC RDW Plt Count Seg Neuts % (Manual) Lymphocytes % (Manual) Seg Neutrophils # Man Lymphocytes # (Manual) Monocytes # (Manual) INR POC ABG pH 7.343 L POC ABG pCO2 30.2 L POC ABG pO2 66 L Sodium Potassium Chloride Carbon Dioxide BUN Creatinine Glucose POC Glucose Lactic Acid 2.6 H* Calcium Total Bilirubin AST ALT Alkaline Phosphatase C-Reactive Protein Total Protein Albumin Urine Creatinine 125.2 H 06/04/16 08:11 WBC Hgb Hct MCV MCH MCHC RDW Plt Count Seg Neuts % (Manual) Lymphocytes % (Manual) Seg Neutrophils # Man Lymphocytes # (Manual) Monocytes # (Manual) INR POC ABG pH POC ABG pCO2 POC ABG pO2 Sodium Potassium 5.4 H Chloride 107.8 H Carbon Dioxide 19 L BUN 74 H Creatinine 2.2 H Glucose 130 H POC Glucose Lactic Acid Calcium 6.8 L Total Bilirubin 5.1 H AST 633 H ALT 555 H Alkaline Phosphatase 487 H C-Reactive Protein Total Protein 5.2 L Albumin 2.1 L Urine Creatinine Chest x-ray: pending
[2016-06-04] MEDS ORDERED: NACL 0.9% 1000 ML 1,000 ML IV SCH (11:00)
--- NOTE | 2016-06-04 11:57 | Progress Note ---
Assessment and Plan Acute kidney injury the patient with solitary functioning kidney, he has also been exposed to radiocontrast study during this admission Patient currently does not require any follow-up renal replacement therapy Patient to continue to monitor renal function mild hyperkalemia that can be treated medically at this point Metabolic acidosis will start on sodium bicarbonate drip Can consider albuterol 10 mg nebulizers to control hyperkalemia Patient can receive insulin as well as dextrose for now Given the clinical situation it appears that patient has moderately severe acute lower necrosis other reasons to be ruled out We'll continue to follow and make recommendations from renal standpoint Case was also discussed with Dr. Hobbs today as well as Dr. Bravo yesterday Patient's prognosis appears to be very guarded to poor at this time He does not want me to discuss his health with any other of his family members Continue with supportive care He may benefit from albumin therapy to reduce the third spacing and improve intravascular volume short-term Critical care time spent in direct patient care 35 minutes today Mayank was also discussed with ICU nurse Subjective Principal diagnosis: Acute Hypoxemic Respiratory Failure; Acute COPD exacerbation Interval history: patient was seen today for follow-up, he still appears to be encephalopathic Also seen with ICU nurse patient has been on IV fluid but currently stopped Events of 24 hours vitals labs intake output medications were reviewed General appearance: Appears to be in no acute distress EENT: mucous membranes moist Neck: no JVD Respiratory: bilateral few basilar crackles Cardiology: regular, S1S2 normal no S3-S4 Gastrointestinal: normal nontender abdomen skin: dry no peripheral edema Neurologic: patient is arousable Objective - Vital Signs Vital signs: Vital Signs - 12hr 06/04/16 06/04/16 06/04/16 00:00 00:11 00:21 Temperature Pulse Rate 108 H 103 H 98 H Pulse Rate [ From Monitor] Respiratory 19 14 14 Rate Blood Pressure 93/46 93/46 89/53 O2 Sat by Pulse 74 L 80 L 95 Oximetry 06/04/16 06/04/16 06/04/16 00:30 00:41 00:51 Temperature Pulse Rate 98 H 99 H 98 H Pulse Rate [ From Monitor] Respiratory 14 15 13 Rate Blood Pressure 90/53 90/53 82/54 O2 Sat by Pulse 95 95 Oximetry 06/04/16 06/04/16 06/04/16 01:00 01:11 01:21 Temperature Pulse Rate 98 H 97 H 97 H Pulse Rate [ From Monitor] Respiratory 13 13 13 Rate Blood Pressure 89/53 89/53 94/51 O2 Sat by Pulse 95 96 Oximetry 06/04/16 06/04/16 06/04/16 01:30 01:41 01:51 Temperature Pulse Rate 98 H 96 H 96 H Pulse Rate [ From Monitor] Respiratory 13 16 13 Rate Blood Pressure 91/59 91/59 88/52 O2 Sat by Pulse 90 97 Oximetry 06/04/16 06/04/16 06/04/16 02:00 02:11 02:20 Temperature Pulse Rate 97 H 105 H 101 H Pulse Rate [ From Monitor] Respiratory 20 16 14 Rate Blood Pressure 105/65 89/50 91/48 O2 Sat by Pulse 66 L 68 L Oximetry 06/04/16 06/04/16 06/04/16 02:30 02:41 02:51 Temperature Pulse Rate 103 H 102 H 105 H Pulse Rate [ From Monitor] Respiratory 14 13 17 Rate Blood Pressure 94/43 91/48 84/48 O2 Sat by Pulse 66 L 65 L 88 Oximetry 06/04/16 06/04/16 06/04/16 03:01 03:11 03:21 Temperature Pulse Rate 101 H 95 H 97 H Pulse Rate [ From Monitor] Respiratory 25 H 12 15 Rate Blood Pressure 90/57 94/43 95/53 O2 Sat by Pulse 95 96 94 Oximetry 06/04/16 06/04/16 06/04/16 03:30 03:41 03:51 Temperature Pulse Rate 95 H 95 H 98 H Pulse Rate [ From Monitor] Respiratory 12 12 12 Rate Blood Pressure 97/59 97/59 83/59 O2 Sat by Pulse 97 94 Oximetry 06/04/16 06/04/16 06/04/16 04:00 04:11 04:21 Temperature Pulse Rate 95 H 94 H 96 H Pulse Rate [ 100 H From Monitor] Respiratory 12 11 L 16 Rate Blood Pressure 96/57 96/57 82/55 O2 Sat by Pulse 96 96 99 Oximetry 06/04/16 06/04/16 06/04/16 04:30 04:41 04:51 Temperature Pulse Rate 98 H 94 H 93 H Pulse Rate [ From Monitor] Respiratory 17 13 13 Rate Blood Pressure 93/63 93/63 82/51 O2 Sat by Pulse 93 97 97 Oximetry 06/04/16 06/04/16 06/04/16 05:00 05:11 05:21 Temperature Pulse Rate 92 H 92 H 92 H Pulse Rate [ From Monitor] Respiratory 12 13 12 Rate Blood Pressure 98/52 82/51 94/56 O2 Sat by Pulse 96 96 Oximetry 06/04/16 06/04/16 06/04/16 05:30 05:41 05:51 Temperature Pulse Rate 91 H 93 H 90 Pulse Rate [ From Monitor] Respiratory 13 13 12 Rate Blood Pressure 84/62 94/56 86/54 O2 Sat by Pulse 95 98 97 Oximetry 06/04/16 06/04/16 06/04/16 06:00 06:11 06:21 Temperature Pulse Rate 94 H 91 H 92 H Pulse Rate [ From Monitor] Respiratory 14 13 14 Rate Blood Pressure 99/66 84/62 108/68 O2 Sat by Pulse 98 97 98 Oximetry 06/04/16 06/04/16 06/04/16 06:31 06:41 06:51 Temperature Pulse Rate 93 H 93 H 91 H Pulse Rate [ From Monitor] Respiratory 15 15 13 Rate Blood Pressure 74/46 74/46 79/55 O2 Sat by Pulse 68 L 95 97 Oximetry 06/04/16 06/04/16 06/04/16 07:00 07:11 07:20 Temperature Pulse Rate 91 H 91 H 91 H Pulse Rate [ From Monitor] Respiratory 13 14 13 Rate Blood Pressure 92/61 79/55 92/61 O2 Sat by Pulse 70 L 96 98 Oximetry 06/04/16 06/04/16 06/04/16 07:30 07:41 07:51 Temperature Pulse Rate 91 H 91 H 96 H Pulse Rate [ From Monitor] Respiratory 13 13 16 Rate Blood Pressure 105/60 90/59 95/57 O2 Sat by Pulse 98 97 96 Oximetry 06/04/16 06/04/16 06/04/16 08:00 08:11 08:21 Temperature 97.4 F L Pulse Rate 90 92 H 93 H Pulse Rate [ 90 From Monitor] Respiratory 13 14 16 Rate Blood Pressure 93/62 105/60 104/60 O2 Sat by Pulse 97 98 Oximetry 06/04/16 06/04/16 06/04/16 08:31 09:42 09:43 Temperature Pulse Rate 108 H 97 H 96 H Pulse Rate [ From Monitor] Respiratory 24 Rate Blood Pressure 100/50 98/60 98/60 O2 Sat by Pulse 95 Oximetry - Lab 06/03/16 05:00 06/04/16 21:00 Most recent lab results Calcium 6.8 mg/dL (8.4-10.2) L 06/04/16 08:11 Urine Creatinine 8.5 mg/dL (0.1-20.0) 06/04/16 06:00 Urine Sodium 12 mEq/L 06/04/16 06:00
[2016-06-04] MEDS ORDERED: CALCIUM GLUCONATE 1,000 MG in NACL 0.9% 100 ML IV ONE (12:00)
[2016-06-04] MEDS ORDERED: NACL 0.45% 1000 ML 1,000 ML with SODIUM BICARBONATE 75 MEQ IV SCH (12:00)
[2016-06-04] MEDS: D50W (25GM) IV SCH ×2 (12:08→17:26)
[2016-06-04] MEDS: ZOFRAN IV PRN (12:59)
[2016-06-04] MEDS: VANCOMYCIN/NS 1 GM/250 ML 1 GM/250 ML BAG IV SCH (15:49)
[2016-06-04] MEDS: DIFLUCAN 200 MG/100 ML BAG IV SCH (21:13)
[2016-06-04 21:41] LABS: BUN/Creatinine Ratio 32.5; Calcium 7.1 mg/dL (8.4-10.2); Chloride 100.4 mmol/L (98-107)
[2016-06-04] MEDS: AMBIEN PO PRN (22:29)
[2016-06-04] MEDS: LOVENOX SUB-Q SCH (22:29)
[2016-06-05] MEDS: ZOSYN/NS 3.375GM/50ML 3.375 GM/50 ML BAG IV SCH ×4 (00:30→17:22)
[2016-06-05] MEDS: D50W (25GM) IV SCH ×3 (02:00→08:23)
[2016-06-05] MEDS: DILAUDID IV PRN ×2 (03:54→08:34)
[2016-06-05] MEDS: DUONEB 0.5 MG-3 MG/3 ML SOLN IH SCH ×2 (07:46→14:54)
[2016-06-05] MEDS: BROVANA NEBU IH SCH (07:46)
[2016-06-05] MEDS: PULMICORT IH SCH (07:47)
[2016-06-05 09:21] LABS: Hematocrit 32.5 % (35.5-45.6); Hemoglobin 10.4 gm/dl (11.8-15.2); Mean Corpuscular HGB Conc 32 % (32-34); Mean Corpuscular Hemoglobin 27 pg (28-32); Mean Corpuscular Volume 83 fl (84-94); Platelet Count 260 K/mm3 (140-440); White Blood Count 16.9 K/mm3 (4.5-11.0)
[2016-06-05 09:30] LABS: Red Cell Distribution Width 21.7 % (13.2-15.2)
--- NOTE | 2016-06-05 09:30 | Progress Note ---
Assessment and Plan Acute kidney injury the patient with solitary functioning kidney, he has also been exposed to radiocontrast study during this admission Etiology appears to be ATN, doing poorly urine output has declined in the last 24 hours patient also has been hypotensive Will need to check ammonia level , d/w Dr Bravo In the meantime continue with bicarbonate containing drip Will give IV albumin to see how he responds to that Metastatic liver cancer/prognosis appears to be guarded to poor patient is not stable for chemotherapy He is doing very poorly and his prognosis appears to be very poor high mortality risk D/w oncology Subjective Principal diagnosis: Acute Hypoxemic Respiratory Failure; Acute COPD exacerbation Interval history: Patient was seen today for follow-up, he appears to be doing about the same Doing very poolry seen with Dr Bravo who also thinks that his prognosis is very poor he is more encephalopathic today Events of 24 hours vitals labs intake output medications were reviewed Objective Vitals reviewed HEENT: No pallor or icterus Neck: Supple no thyromegaly nodular mass or JVD Chest: Few bilateral basilar crackles Cardiovascular: Regular rate and rhythm S1 and S2 normal no S3-S4 Abdomen: Soft nontender no voluntary guarding rigidity rebound or renal bruit Extremity no edema dry skin. Pulses palpable Neurological: Encephalopathic Dermatologic; dry skin Psych: No agitation Objective - Vital Signs Vital signs: Vital Signs - 12hr 06/04/16 06/04/16 06/04/16 21:30 21:41 21:51 Temperature Pulse Rate 115 H 109 H 114 H Pulse Rate [ Anterior Bilateral Throughout] Pulse Rate [ From Monitor] Respiratory 25 H 23 21 Rate Respiratory Rate [Anterior Bilateral Throughout] Blood Pressure 101/67 101/67 107/62 O2 Sat by Pulse 92 96 95 Oximetry 06/04/16 06/04/16 06/04/16 22:00 22:11 22:21 Temperature Pulse Rate 115 H 113 H 112 H Pulse Rate [ Anterior Bilateral Throughout] Pulse Rate [ From Monitor] Respiratory 30 H 26 H 25 H Rate Respiratory Rate [Anterior Bilateral Throughout] Blood Pressure 115/66 115/66 115/66 O2 Sat by Pulse 88 95 91 Oximetry 06/04/16 06/04/16 06/04/16 22:31 22:41 22:51 Temperature Pulse Rate 110 H 107 H 109 H Pulse Rate [ Anterior Bilateral Throughout] Pulse Rate [ From Monitor] Respiratory 22 18 18 Rate Respiratory Rate [Anterior Bilateral Throughout] Blood Pressure 93/49 93/49 88/54 O2 Sat by Pulse 95 96 95 Oximetry 06/04/16 06/04/16 06/04/16 23:00 23:11 23:21 Temperature Pulse Rate 109 H 107 H 112 H Pulse Rate [ Anterior Bilateral Throughout] Pulse Rate [ From Monitor] Respiratory 24 17 15 Rate Respiratory Rate [Anterior Bilateral Throughout] Blood Pressure 97/61 97/61 105/53 O2 Sat by Pulse 96 94 71 L Oximetry 06/04/16 06/04/16 06/04/16 23:30 23:40 23:51 Temperature Pulse Rate 109 H 113 H 119 H Pulse Rate [ Anterior Bilateral Throughout] Pulse Rate [ From Monitor] Respiratory 14 22 26 H Rate Respiratory Rate [Anterior Bilateral Throughout] Blood Pressure 100/58 100/58 106/60 O2 Sat by Pulse 87 93 69 L Oximetry 06/05/16 06/05/16 06/05/16 00:00 00:07 00:11 Temperature Pulse Rate 115 H 112 H 111 H Pulse Rate [ Anterior Bilateral Throughout] Pulse Rate [ 113 H From Monitor] Respiratory 24 22 17 Rate Respiratory Rate [Anterior Bilateral Throughout] Blood Pressure 108/76 108/76 100/58 O2 Sat by Pulse 88 98 97 Oximetry 06/05/16 06/05/16 06/05/16 00:21 00:30 00:41 Temperature Pulse Rate 110 H 110 H 109 H Pulse Rate [ Anterior Bilateral Throughout] Pulse Rate [ From Monitor] Respiratory 19 20 18 Rate Respiratory Rate [Anterior Bilateral Throughout] Blood Pressure 99/71 100/66 100/66 O2 Sat by Pulse 97 96 99 Oximetry 06/05/16 06/05/16 06/05/16 00:51 01:00 01:11 Temperature Pulse Rate 115 H 108 H 107 H Pulse Rate [ Anterior Bilateral Throughout] Pulse Rate [ From Monitor] Respiratory 24 18 17 Rate Respiratory Rate [Anterior Bilateral Throughout] Blood Pressure 103/70 102/64 102/64 O2 Sat by Pulse 98 96 97 Oximetry 06/05/16 06/05/16 06/05/16 01:21 01:30 01:41 Temperature Pulse Rate 114 H 108 H 107 H Pulse Rate [ Anterior Bilateral Throughout] Pulse Rate [ From Monitor] Respiratory 23 17 19 Rate Respiratory Rate [Anterior Bilateral Throughout] Blood Pressure 111/64 106/64 106/64 O2 Sat by Pulse 93 97 97 Oximetry 0406/05/16 06/05/16 01:51 02:01 02:11 Temperature Pulse Rate 107 H 115 H 107 H Pulse Rate [ Anterior Bilateral Throughout] Pulse Rate [ From Monitor] Respiratory 20 24 18 Rate Respiratory Rate [Anterior Bilateral Throughout] Blood Pressure 101/71 116/49 116/49 O2 Sat by Pulse 96 93 97 Oximetry 06/05/16 06/05/16 06/05/16 02:21 02:30 02:41 Temperature Pulse Rate 108 H 108 H 111 H Pulse Rate [ Anterior Bilateral Throughout] Pulse Rate [ From Monitor] Respiratory 17 18 19 Rate Respiratory Rate [Anterior Bilateral Throughout] Blood Pressure 108/69 111/67 111/67 O2 Sat by Pulse 96 95 95 Oximetry 06/05/16 06/05/16 06/05/16 02:51 03:00 03:11 Temperature Pulse Rate 116 H 116 H 110 H Pulse Rate [ Anterior Bilateral Throughout] Pulse Rate [ From Monitor] Respiratory 20 27 H 21 Rate Respiratory Rate [Anterior Bilateral Throughout] Blood Pressure 119/62 123/76 123/76 O2 Sat by Pulse 82 L 93 97 Oximetry 06/05/16 06/05/16 06/05/16 03:21 03:30 03:41 Temperature Pulse Rate 108 H 115 H 116 H Pulse Rate [ Anterior Bilateral Throughout] Pulse Rate [ From Monitor] Respiratory 20 25 H 20 Rate Respiratory Rate [Anterior Bilateral Throughout] Blood Pressure 125/81 123/78 123/78 O2 Sat by Pulse 96 95 97 Oximetry 06/05/16 06/05/16 06/05/16 03:51 03:53 04:00 Temperature 97.6 F Pulse Rate 111 H 108 H Pulse Rate [ Anterior Bilateral Throughout] Pulse Rate [ 111 H From Monitor] Respiratory 16 18 Rate Respiratory Rate [Anterior Bilateral Throughout] Blood Pressure 104/66 98/64 O2 Sat by Pulse 98 95 Oximetry 06/05/16 06/05/16 06/05/16 04:11 04:21 04:30 Temperature Pulse Rate 114 H 109 H 107 H Pulse Rate [ Anterior Bilateral Throughout] Pulse Rate [ From Monitor] Respiratory 17 14 13 Rate Respiratory Rate [Anterior Bilateral Throughout] Blood Pressure 98/64 99/49 89/56 O2 Sat by Pulse 100 97 97 Oximetry 06/05/16 06/05/16 06/05/16 04:41 04:51 05:00 Temperature Pulse Rate 106 H 114 H 113 H Pulse Rate [ Anterior Bilateral Throughout] Pulse Rate [ From Monitor] Respiratory 16 22 16 Rate Respiratory Rate [Anterior Bilateral Throughout] Blood Pressure 89/56 105/57 96/48 O2 Sat by Pulse 98 90 74 L Oximetry 06/05/16 06/05/16 06/05/16 05:11 05:21 05:30 Temperature Pulse Rate 104 H 101 H 101 H Pulse Rate [ Anterior Bilateral Throughout] Pulse Rate [ From Monitor] Respiratory 12 12 14 Rate Respiratory Rate [Anterior Bilateral Throughout] Blood Pressure 96/48 93/60 101/58 O2 Sat by Pulse 97 98 96 Oximetry 06/05/16 06/05/16 06/05/16 05:41 05:51 06:00 Temperature Pulse Rate 115 H 102 H 101 H Pulse Rate [ Anterior Bilateral Throughout] Pulse Rate [ From Monitor] Respiratory 22 14 13 Rate Respiratory Rate [Anterior Bilateral Throughout] Blood Pressure 101/58 109/66 106/56 O2 Sat by Pulse 96 98 96 Oximetry 06/05/16 06/05/16 06/05/16 06:11 06:21 06:30 Temperature Pulse Rate 115 H 101 H 100 H Pulse Rate [ Anterior Bilateral Throughout] Pulse Rate [ From Monitor] Respiratory 31 H 13 13 Rate Respiratory Rate [Anterior Bilateral Throughout] Blood Pressure 106/56 103/58 89/58 O2 Sat by Pulse 99 99 Oximetry 06/05/16 06/05/16 06/05/16 06:41 06:51 07:00 Temperature Pulse Rate 99 H 103 H 101 H Pulse Rate [ Anterior Bilateral Throughout] Pulse Rate [ From Monitor] Respiratory 13 13 14 Rate Respiratory Rate [Anterior Bilateral Throughout] Blood Pressure 89/58 99/54 94/62 O2 Sat by Pulse 100 100 Oximetry 06/05/16 06/05/16 06/05/16 07:11 07:21 07:30 Temperature Pulse Rate 103 H 109 H 108 H Pulse Rate [ Anterior Bilateral Throughout] Pulse Rate [ From Monitor] Respiratory 13 18 17 Rate Respiratory Rate [Anterior Bilateral Throughout] Blood Pressure 94/62 108/65 111/68 O2 Sat by Pulse 99 98 98 Oximetry 06/05/16 06/05/16 06/05/16 07:41 07:51 07:53 Temperature Pulse Rate 109 H 108 H Pulse Rate [ 118 H Anterior Bilateral Throughout] Pulse Rate [ From Monitor] Respiratory 18 17 Rate Respiratory 20 Rate [Anterior Bilateral Throughout] Blood Pressure 111/68 117/70 O2 Sat by Pulse 97 82 L Oximetry 06/05/16 06/05/16 06/05/16 07:54 08:00 08:11 Temperature 98.1 F Pulse Rate 108 H 108 H Pulse Rate [ Anterior Bilateral Throughout] Pulse Rate [ From Monitor] Respiratory 15 15 Rate Respiratory Rate [Anterior Bilateral Throughout] Blood Pressure 101/55 101/55 O2 Sat by Pulse 94 89 Oximetry 06/05/16 06/05/16 06/05/16 08:21 08:30 08:34 Temperature Pulse Rate 114 H 126 H Pulse Rate [ Anterior Bilateral Throughout] Pulse Rate [ From Monitor] Respiratory 18 20 22 Rate Respiratory Rate [Anterior Bilateral Throughout] Blood Pressure 95/65 113/62 O2 Sat by Pulse 82 L 82 L Oximetry 06/05/16 06/05/16 06/05/16 08:41 08:51 09:00 Temperature Pulse Rate 120 H 116 H 118 H Pulse Rate [ Anterior Bilateral Throughout] Pulse Rate [ From Monitor] Respiratory 14 14 18 Rate Respiratory Rate [Anterior Bilateral Throughout] Blood Pressure 113/62 102/63 98/60 O2 Sat by Pulse 85 87 91 Oximetry - Lab 06/05/16 08:30 06/05/16 10:41 Most recent lab results Calcium 7.1 mg/dL (8.4-10.2) L 06/04/16 21:00 Urine Creatinine 8.5 mg/dL (0.1-20.0) 06/04/16 06:00 Urine Sodium 12 mEq/L 06/04/16 06:00
--- NOTE | 2016-06-05 10:18 | Hem/Onc Progress Note ---
Assessment and Plan Prognosis is very poor. Discussed with ex- who is also power of trial attorney. He shouldn't does not want to be a full code. She has sent advance directives. Patient's also wants [facility] in [place]. We will order that. Patient will be a DO NOT RESUSCITATE. Allow natural . Subjective Date of service: 06/05/16 Interval history: Patient confused. LFTs high. Renal function worsening. Overall worsening status. Objective - Exam Narrative Exam: Confused. Combative occasionally. - Constitutional Vitals: Last Vital Signs Temp 98.1 F 06/05/16 08:00 Pulse 118 H 06/05/16 09:00 Resp 18 06/05/16 09:00 BP 98/60 06/05/16 09:00 Pulse Ox 91 06/05/16 09:00 - Respiratory Respiratory effort: Positive: labored Respiratory: bilateral: diminished - Cardiovascular Rhythm: regular Extremity abnormal: edema - Gastrointestinal General gastrointestinal: Present: distended - Labs Lab Results: Laboratory Results - last 24 hr 05/31/16 06/04/16 06/04/16 20:17 08:11 21:00 WBC RBC Hgb Hct MCV MCH MCHC RDW Plt Count Seg Neutrophils % Abs Lymphs (Manual) 315 L Sodium 142 D 139 Potassium 5.0 Chloride 100.4 Carbon Dioxide 18 L Anion Gap 26 BUN 78 H Creatinine 2.4 H Estimated GFR 28 BUN/Creatinine Ratio 32.50 Glucose 158 H Calcium 7.1 L Lymph Enumerat CD4/CD8 6.19 H % CD3 Cells 72 Absolute CD3 Count 228 L % CD4 Cells 63 H Absolute CD4 Count 197 L % CD8 Cells 10 L Absolute CD8 Count 32 L % CD19 Cells 18 Absolute CD19 Count 57 L 06/05/16 08:30 WBC 16.9 H RBC 3.90 Hgb 10.4 L Hct 32.5 L MCV 83 L MCH 27 L MCHC 32 RDW 21.7 H Plt Count 260 Seg Neutrophils % [employer] Representative Abs Lymphs (Manual) Sodium Potassium Chloride Carbon Dioxide Anion Gap BUN Creatinine Estimated GFR BUN/Creatinine Ratio Glucose Calcium Lymph Enumerat CD4/CD8 % CD3 Cells Absolute CD3 Count % CD4 Cells Absolute CD4 Count % CD8 Cells Absolute CD8 Count % CD19 Cells Absolute CD19 Count
--- NOTE | 2016-06-05 10:28 | Progress Note ---
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 Conservative cardiac management. Subjective Date of service: 06/05/16 Principal diagnosis: Acute Hypoxemic Respiratory Failure; Acute COPD exacerbation Interval history: Patient is now DNR status and is awaiting transfer to hospice. Objective Vital Signs Temp Pulse Pulse Pulse Resp Resp BP 06/05/16 09:04 14 06/05/16 09:00 118 H 18 98/60 06/05/16 08:51 116 H 14 102/63 06/05/16 08:41 120 H 14 113/62 06/05/16 08:34 22 06/05/16 08:30 126 H 20 113/62 06/05/16 08:21 114 H 18 95/65 06/05/16 08:11 108 H 15 101/55 06/05/16 08:00 98.1 F 108 H 15 101/55 06/05/16 07:54 06/05/16 07:53 118 H 20 06/05/16 07:51 108 H 17 117/70 06/05/16 07:41 109 H 18 111/68 06/05/16 07:30 108 H 17 111/68 06/05/16 07:21 109 H 18 108/65 06/05/16 07:11 103 H 13 94/62 06/05/16 07:00 101 H 14 94/62 06/05/16 06:51 103 H 13 99/54 06/05/16 06:41 99 H 13 89/58 06/05/16 06:30 100 H 13 89/58 06/05/16 06:21 101 H 13 103/58 06/05/16 06:11 115 H 31 H 106/56 06/05/16 06:00 101 H 13 106/56 06/05/16 05:51 102 H 14 109/66 06/05/16 05:41 115 H 22 101/58 06/05/16 05:30 101 H 14 101/58 06/05/16 05:21 101 H 12 93/60 06/05/16 05:11 104 H 12 96/48 06/05/16 05:00 113 H 16 96/48 06/05/16 04:51 114 H 22 105/57 06/05/16 04:41 106 H 16 89/56 06/05/16 04:30 107 H 13 89/56 06/05/16 04:21 109 H 14 99/49 06/05/16 04:11 114 H 17 98/64 06/05/16 04:00 108 H 111 H 18 98/64 06/05/16 03:53 97.6 F 06/05/16 03:51 111 H 16 104/66 06/05/16 03:41 116 H 20 123/78 06/05/16 03:30 115 H 25 H 123/78 06/05/16 03:21 108 H 20 125/81 06/05/16 03:11 110 H 21 123/76 06/05/16 03:00 116 H 27 H 123/76 06/05/16 02:51 116 H 20 119/62 06/05/16 02:41 111 H 19 111/67 06/05/16 02:30 108 H 18 111/67 06/05/16 02:21 108 H 17 108/69 06/05/16 02:11 107 H 18 116/49 06/05/16 02:01 115 H 24 116/49 06/05/16 01:51 107 H 20 101/71 06/05/16 01:41 107 H 19 106/64 06/05/16 01:30 108 H 17 106/64 06/05/16 01:21 114 H 23 111/64 06/05/16 01:11 107 H 17 102/64 06/05/16 01:00 108 H 18 102/64 06/05/16 00:51 115 H 24 103/70 06/05/16 00:41 109 H 18 100/66 06/05/16 00:30 110 H 20 100/66 06/05/16 00:21 110 H 19 99/71 06/05/16 00:11 111 H 17 100/58 06/05/16 00:07 112 H 22 108/76 06/05/16 00:00 115 H 113 H 24 108/76 06/04/16 23:51 119 H 26 H 106/60 06/04/16 23:40 113 H 22 100/58 06/04/16 23:30 109 H 14 100/58 06/04/16 23:21 112 H 15 105/53 06/04/16 23:11 107 H 17 97/61 06/04/16 23:00 109 H 24 97/61 06/04/16 22:51 109 H 18 88/54 06/04/16 22:41 107 H 18 93/49 06/04/16 22:31 110 H 22 93/49 06/04/16 22:21 112 H 25 H 115/66 06/04/16 22:11 113 H 26 H 115/66 06/04/16 22:00 115 H 30 H 115/66 06/04/16 21:51 114 H 21 107/62 06/04/16 21:41 109 H 23 101/67 06/04/16 21:30 115 H 25 H 101/67 06/04/16 21:21 121 H 32 H 112/72 06/04/16 21:11 114 H 26 H 106/57 06/04/16 21:00 114 H 27 H 106/57 06/04/16 20:51 116 H 28 H 101/61 06/04/16 20:41 118 H 28 H 96/69 06/04/16 20:31 117 H 34 H 96/69 06/04/16 20:21 120 H 28 H 91/64 06/04/16 20:19 118 H 30 H 91/64 06/04/16 20:11 118 H 28 H 101/59 06/04/16 20:00 107 H 110 H 22 101/59 06/04/16 19:51 106 H 25 H 98/63 06/04/16 19:46 102 H 20 06/04/16 19:41 101 H 20 95/61 06/04/16 19:30 120 H 34 H 95/61 06/04/16 19:21 116 H 25 H 85/53 06/04/16 19:11 114 H 27 H 99/64 06/04/16 19:01 125 H 36 H 99/64 06/04/16 18:51 108 H 23 100/59 06/04/16 18:41 110 H 23 99/64 06/04/16 18:30 117 H 29 H 99/64 06/04/16 18:21 114 H 25 H 98/66 06/04/16 18:11 112 H 20 105/63 06/04/16 18:01 118 H 21 105/63 06/04/16 17:51 104/60 06/04/16 17:41 122 H 28 H 104/60 06/04/16 17:30 114 H 21 104/60 06/04/16 17:21 114 H 24 106/71 06/04/16 17:11 114 H 21 115/69 06/04/16 17:00 113 H 24 115/69 06/04/16 16:51 113 H 22 109/67 06/04/16 16:41 112 H 20 99/55 06/04/16 16:30 108 H 18 99/55 06/04/16 16:21 111 H 22 112/60 06/04/16 16:11 111 H 22 108/63 06/04/16 16:00 97.7 F 113 H 113 H 22 108/63 06/04/16 15:51 115 H 24 123/61 06/04/16 15:41 112 H 21 110/58 06/04/16 15:30 113 H 21 110/58 06/04/16 15:21 115 H 24 116/85 06/04/16 15:11 109 H 20 109/60 06/04/16 15:00 113 H 24 109/60 06/04/16 14:51 106 H 17 109/60 06/04/16 14:41 108 H 18 106/58 06/04/16 14:30 110 H 20 106/58 06/04/16 14:21 110 H 22 91/60 06/04/16 14:11 111 H 21 107/60 06/04/16 14:00 110 H 102 H 26 H 20 107/60 06/04/16 13:51 102 H 18 101/57 06/04/16 13:41 104 H 19 93/54 06/04/16 13:30 108 H 22 93/54 06/04/16 13:21 113 H 25 H 95/46 06/04/16 13:11 109 H 19 88/52 06/04/16 13:00 108 H 19 78/50 06/04/16 12:51 110 H 19 95/51 06/04/16 12:41 113 H 22 91/43 06/04/16 12:31 110 H 19 91/43 06/04/16 12:21 118 H 22 107/79 06/04/16 12:11 112 H 24 104/73 06/04/16 12:00 97.8 F 116 H 109 H 18 104/73 06/04/16 11:51 108 H 17 119/66 06/04/16 11:41 117 H 22 116/60 06/04/16 11:30 112 H 21 116/60 06/04/16 11:21 111 H 19 114/58 06/04/16 11:11 104 H 16 110/67 06/04/16 11:00 112 H 16 110/67 06/04/16 10:51 108 H 24 88/52 06/04/16 10:41 108 H 14 80/47 06/04/16 10:30 110 H 16 80/47 Pulse Ox 06/05/16 09:04 06/05/16 09:00 91 06/05/16 08:51 87 06/05/16 08:41 85 06/05/16 08:34 06/05/16 08:30 82 L 06/05/16 08:21 82 L 06/05/16 08:11 89 06/05/16 08:00 06/05/16 07:54 94 06/05/16 07:53 06/05/16 07:51 82 L 06/05/16 07:41 97 06/05/16 07:30 98 06/05/16 07:21 98 06/05/16 07:11 99 06/05/16 07:00 06/05/16 06:51 100 06/05/16 06:41 100 06/05/16 06:30 99 06/05/16 06:21 99 06/05/16 06:11 06/05/16 06:00 96 06/05/16 05:51 98 06/05/16 05:41 96 06/05/16 05:30 96 06/05/16 05:21 98 06/05/16 05:11 97 06/05/16 05:00 74 L 06/05/16 04:51 90 06/05/16 04:41 98 06/05/16 04:30 97 06/05/16 04:21 97 06/05/16 04:11 100 06/05/16 04:00 95 06/05/16 03:53 06/05/16 03:51 98 06/05/16 03:41 97 06/05/16 03:30 95 06/05/16 03:21 96 06/05/16 03:11 97 06/05/16 03:00 93 06/05/16 02:51 82 L 06/05/16 02:41 95 06/05/16 02:30 95 06/05/16 02:21 96 06/05/16 02:11 97 06/05/16 02:01 93 06/05/16 01:51 96 06/05/16 01:41 97 06/05/16 01:30 97 06/05/16 01:21 93 06/05/16 01:11 97 06/05/16 01:00 96 06/05/16 00:51 98 06/05/16 00:41 99 06/05/16 00:30 96 06/05/16 00:21 97 06/05/16 00:11 97 06/05/16 00:07 98 06/05/16 00:00 88 06/04/16 23:51 69 L 06/04/16 23:40 93 06/04/16 23:30 87 06/04/16 23:21 71 L 06/04/16 23:11 94 06/04/16 23:00 96 06/04/16 22:51 95 06/04/16 22:41 96 06/04/16 22:31 95 06/04/16 22:21 91 06/04/16 22:11 95 06/04/16 22:00 88 06/04/16 21:51 95 06/04/16 21:41 96 06/04/16 21:30 92 06/04/16 21:21 84 06/04/16 21:11 84 06/04/16 21:00 90 06/04/16 20:51 86 06/04/16 20:41 86 06/04/16 20:31 91 06/04/16 20:21 89 06/04/16 20:19 89 06/04/16 20:11 86 06/04/16 20:00 90 06/04/16 19:51 95 06/04/16 19:46 93 06/04/16 19:41 93 06/04/16 19:30 78 L 06/04/16 19:21 81 L 06/04/16 19:11 87 06/04/16 19:01 92 06/04/16 18:51 92 06/04/16 18:41 92 06/04/16 18:30 86 06/04/16 18:21 88 06/04/16 18:11 90 06/04/16 18:01 06/04/16 17:51 83 L 06/04/16 17:41 82 L 06/04/16 17:30 91 06/04/16 17:21 89 06/04/16 17:11 91 06/04/16 17:00 87 06/04/16 16:51 90 06/04/16 16:41 89 06/04/16 16:30 93 06/04/16 16:21 90 06/04/16 16:11 88 06/04/16 16:00 90 06/04/16 15:51 87 06/04/16 15:41 92 06/04/16 15:30 89 06/04/16 15:21 86 06/04/16 15:11 90 06/04/16 15:00 88 06/04/16 14:51 92 06/04/16 14:41 91 06/04/16 14:30 89 06/04/16 14:21 90 06/04/16 14:11 86 06/04/16 14:00 93 06/04/16 13:51 96 06/04/16 13:41 97 06/04/16 13:30 96 06/04/16 13:21 93 06/04/16 13:11 94 06/04/16 13:00 96 06/04/16 12:51 97 06/04/16 12:41 95 06/04/16 12:31 95 06/04/16 12:21 90 06/04/16 12:11 91 06/04/16 12:00 96 06/04/16 11:51 95 06/04/16 11:41 93 06/04/16 11:30 93 06/04/16 11:21 85 06/04/16 11:11 96 06/04/16 11:00 93 06/04/16 10:51 92 06/04/16 10:41 67 L 06/04/16 10:30 92 - Physical Examination General: No Apparent Distress HEENT: Positive: PERRL Neck: Positive: trachea midline Neuro: Positive: Grossly Intact Extremities: Present: normal - Labs and Meds CBC 06/05/16 Range/Units 08:30 WBC 16.9 H (4.5-11.0) K/mm3 RBC 3.90 (3.65-5.03) M/mm3 Hgb 10.4 L (11.8-15.2) gm/dl Hct 32.5 L (35.5-45.6) % Plt Count 260 (140-440) K/mm3 Comprehensive Metabolic Panel 06/04/16 Range/Units 21:00 Sodium 139 (137-145) mmol/L Potassium 5.0 (3.6-5.0) mmol/L Chloride 100.4 (98-107) mmol/L Carbon Dioxide 18 L (22-30) mmol/L BUN 78 H (9-20) mg/dL Creatinine 2.4 H (0.8-1.5) mg/dL Glucose 158 H (75-100) mg/dL Calcium 7.1 L (8.4-10.2) mg/dL
[2016-06-05] MEDS: PEPCID PO SCH (11:00)
[2016-06-05] MEDS: PLAVIX PO SCH (11:00)
[2016-06-05 11:08] LABS: Basophils % (Manual) 0 % (0.0-1.8); Blastocytes % (Manual) 0 %; Eosinophils % (Manual) 0 % (0.0-4.3); Total Cells Counted Percent 0
[2016-06-05 11:09] LABS: Anisocytosis 1+; Diff Status Complete; Polychromasia Few
[2016-06-05 11:26] LABS: Albumin 2.1 g/dL (3.9-5); Albumin/Globulin Ratio 0.7 %; BUN/Creatinine Ratio 31.6; Calcium 7.3 mg/dL (8.4-10.2); Chloride 102.6 mmol/L (98-107); Magnesium 2.8 mg/dL (1.7-2.3); Phosphorous 3.9 mg/dL (2.5-4.5); Potassium 4.9 mmol/L (3.6-5.0); Total Protein 5.3 g/dL (6.3-8.2)
[2016-06-05] MEDS ORDERED: ALBURX 25% (ALBUMIN) IV SCH (11:30)
[2016-06-05 11:34] LABS: Uric Acid 8.3 mg/dL (3.5-7.6)
--- NOTE | 2016-06-05 11:50 | Ultrasound Report ---
ULTRASOUND RENAL BILATERAL HISTORY: Acute renal insufficiency. TECHNIQUE: transabdominal ultrasound with color Doppler interrogation. FINDINGS: The right kidney measures 12.6 x 6.3 x 6.4cm. Right renal cortex: 2.2cm. The left kidney was not identified on ultrasound. The left kidney is severely atrophic on recent CT measuring approximately 5 cm in length. The right kidney is normal size and position but demonstrates increased parenchymal echotexture. There is no evidence for focal renal lesion, nephrolithiasis or hydronephrosis. Small ascites is noted adjacent to the liver. The bladder is unremarkable. IMPRESSION: Normal size but echogenic right kidney consistent with renal parenchymal disease. No hydronephrosis. Severely atrophic left kidney, see above. Small ascites.
--- NOTE | 2016-06-05 13:06 | Progress Note ---
Assessment and Plan - Patient Problems (1) Acute hypoxemic respiratory failure Current Visit: Yes Status: Acute (2) COPD with acute exacerbation Current Visit: Yes Status: Acute (3) Liver cancer Current Visit: Yes Status: Acute Qualifiers: Liver malignancy type: L (4) Severe sepsis Current Visit: Yes Status: Acute (5) SHARON (acute kidney injury) Current Visit: Yes Status: Acute (6) Discharge planning issues Current Visit: No Status: Acute Subjective Date of service: 06/05/16 Principal diagnosis: Acute Hypoxemic Respiratory Failure; Acute COPD exacerbation Interval history: Seen and examined at bedside; 24 hour events reviewed; nursing and respiratory care staff consulted; no adverse overnight events reported to me; Objective Vital Signs - 12hr 06/05/16 06/05/16 06/05/16 01:11 01:21 01:30 Temperature Pulse Rate 107 H 114 H 108 H Pulse Rate [ Anterior Bilateral Throughout] Pulse Rate [ From Monitor] Respiratory 17 23 17 Rate Respiratory Rate [Anterior Bilateral Throughout] Blood Pressure 102/64 111/64 106/64 O2 Sat by Pulse 97 93 97 Oximetry 06/05/16 06/05/16 06/05/16 01:41 01:51 02:01 Temperature Pulse Rate 107 H 107 H 115 H Pulse Rate [ Anterior Bilateral Throughout] Pulse Rate [ From Monitor] Respiratory 19 20 24 Rate Respiratory Rate [Anterior Bilateral Throughout] Blood Pressure 106/64 101/71 116/49 O2 Sat by Pulse 97 96 93 Oximetry 06/05/16 06/05/16 06/05/16 02:11 02:21 02:30 Temperature Pulse Rate 107 H 108 H 108 H Pulse Rate [ Anterior Bilateral Throughout] Pulse Rate [ From Monitor] Respiratory 18 17 18 Rate Respiratory Rate [Anterior Bilateral Throughout] Blood Pressure 116/49 108/69 111/67 O2 Sat by Pulse 97 96 95 Oximetry 06/05/16 06/05/16 06/05/16 02:41 02:51 03:00 Temperature Pulse Rate 111 H 116 H 116 H Pulse Rate [ Anterior Bilateral Throughout] Pulse Rate [ From Monitor] Respiratory 19 20 27 H Rate Respiratory Rate [Anterior Bilateral Throughout] Blood Pressure 111/67 119/62 123/76 O2 Sat by Pulse 95 82 L 93 Oximetry 06/05/16 06/05/16 06/05/16 03:11 03:21 03:30 Temperature Pulse Rate 110 H 108 H 115 H Pulse Rate [ Anterior Bilateral Throughout] Pulse Rate [ From Monitor] Respiratory 21 20 25 H Rate Respiratory Rate [Anterior Bilateral Throughout] Blood Pressure 123/76 125/81 123/78 O2 Sat by Pulse 97 96 95 Oximetry 06/05/16 06/05/16 06/05/16 03:41 03:51 03:53 Temperature 97.6 F Pulse Rate 116 H 111 H Pulse Rate [ Anterior Bilateral Throughout] Pulse Rate [ From Monitor] Respiratory 20 16 Rate Respiratory Rate [Anterior Bilateral Throughout] Blood Pressure 123/78 104/66 O2 Sat by Pulse 97 98 Oximetry 06/05/16 06/05/16 06/05/16 04:00 04:11 04:21 Temperature Pulse Rate 108 H 114 H 109 H Pulse Rate [ Anterior Bilateral Throughout] Pulse Rate [ 111 H From Monitor] Respiratory 18 17 14 Rate Respiratory Rate [Anterior Bilateral Throughout] Blood Pressure 98/64 98/64 99/49 O2 Sat by Pulse 95 100 97 Oximetry 06/05/16 06/05/16 06/05/16 04:30 04:41 04:51 Temperature Pulse Rate 107 H 106 H 114 H Pulse Rate [ Anterior Bilateral Throughout] Pulse Rate [ From Monitor] Respiratory 13 16 22 Rate Respiratory Rate [Anterior Bilateral Throughout] Blood Pressure 89/56 89/56 105/57 O2 Sat by Pulse 97 98 90 Oximetry 06/05/16 06/05/16 06/05/16 05:00 05:11 05:21 Temperature Pulse Rate 113 H 104 H 101 H Pulse Rate [ Anterior Bilateral Throughout] Pulse Rate [ From Monitor] Respiratory 16 12 12 Rate Respiratory Rate [Anterior Bilateral Throughout] Blood Pressure 96/48 96/48 93/60 O2 Sat by Pulse 74 L 97 98 Oximetry 06/05/16 06/05/16 06/05/16 05:30 05:41 05:51 Temperature Pulse Rate 101 H 115 H 102 H Pulse Rate [ Anterior Bilateral Throughout] Pulse Rate [ From Monitor] Respiratory 14 22 14 Rate Respiratory Rate [Anterior Bilateral Throughout] Blood Pressure 101/58 101/58 109/66 O2 Sat by Pulse 96 96 98 Oximetry 06/05/16 06/05/16 06/05/16 06:00 06:11 06:21 Temperature Pulse Rate 101 H 115 H 101 H Pulse Rate [ Anterior Bilateral Throughout] Pulse Rate [ From Monitor] Respiratory 13 31 H 13 Rate Respiratory Rate [Anterior Bilateral Throughout] Blood Pressure 106/56 106/56 103/58 O2 Sat by Pulse 96 99 Oximetry 06/05/16 06/05/16 06/05/16 06:30 06:41 06:51 Temperature Pulse Rate 100 H 99 H 103 H Pulse Rate [ Anterior Bilateral Throughout] Pulse Rate [ From Monitor] Respiratory 13 13 13 Rate Respiratory Rate [Anterior Bilateral Throughout] Blood Pressure 89/58 89/58 99/54 O2 Sat by Pulse 99 100 100 Oximetry 06/05/16 06/05/16 06/05/16 07:00 07:11 07:21 Temperature Pulse Rate 101 H 103 H 109 H Pulse Rate [ Anterior Bilateral Throughout] Pulse Rate [ From Monitor] Respiratory 14 13 18 Rate Respiratory Rate [Anterior Bilateral Throughout] Blood Pressure 94/62 94/62 108/65 O2 Sat by Pulse 99 98 Oximetry 06/05/16 06/05/16 06/05/16 07:30 07:41 07:51 Temperature Pulse Rate 108 H 109 H 108 H Pulse Rate [ Anterior Bilateral Throughout] Pulse Rate [ From Monitor] Respiratory 17 18 17 Rate Respiratory Rate [Anterior Bilateral Throughout] Blood Pressure 111/68 111/68 117/70 O2 Sat by Pulse 98 97 82 L Oximetry 06/05/16 06/05/16 06/05/16 07:53 07:54 08:00 Temperature 98.1 F Pulse Rate 108 H Pulse Rate [ 118 H Anterior Bilateral Throughout] Pulse Rate [ From Monitor] Respiratory 15 Rate Respiratory 20 Rate [Anterior Bilateral Throughout] Blood Pressure 101/55 O2 Sat by Pulse 94 Oximetry 06/05/16 06/05/16 06/05/16 08:11 08:21 08:30 Temperature Pulse Rate 108 H 114 H 126 H Pulse Rate [ Anterior Bilateral Throughout] Pulse Rate [ From Monitor] Respiratory 15 18 20 Rate Respiratory Rate [Anterior Bilateral Throughout] Blood Pressure 101/55 95/65 113/62 O2 Sat by Pulse 89 82 L 82 L Oximetry 06/05/16 06/05/16 06/05/16 08:34 08:41 08:51 Temperature Pulse Rate 120 H 116 H Pulse Rate [ Anterior Bilateral Throughout] Pulse Rate [ From Monitor] Respiratory 22 14 14 Rate Respiratory Rate [Anterior Bilateral Throughout] Blood Pressure 113/62 102/63 O2 Sat by Pulse 85 87 Oximetry 06/05/16 06/05/16 06/05/16 09:00 09:04 09:11 Temperature Pulse Rate 118 H 114 H Pulse Rate [ Anterior Bilateral Throughout] Pulse Rate [ From Monitor] Respiratory 18 14 13 Rate Respiratory Rate [Anterior Bilateral Throughout] Blood Pressure 98/60 106/67 O2 Sat by Pulse 91 92 Oximetry 06/05/16 06/05/16 06/05/16 09:21 09:30 09:41 Temperature Pulse Rate 109 H 108 H 106 H Pulse Rate [ Anterior Bilateral Throughout] Pulse Rate [ From Monitor] Respiratory 13 14 13 Rate Respiratory Rate [Anterior Bilateral Throughout] Blood Pressure 106/67 106/62 106/62 O2 Sat by Pulse 96 90 93 Oximetry 06/05/16 06/05/16 06/05/16 09:51 10:00 10:11 Temperature Pulse Rate 107 H 115 H 107 H Pulse Rate [ Anterior Bilateral Throughout] Pulse Rate [ From Monitor] Respiratory 13 16 18 Rate Respiratory Rate [Anterior Bilateral Throughout] Blood Pressure 106/62 113/68 113/68 O2 Sat by Pulse 87 96 Oximetry 06/05/16 06/05/16 06/05/16 10:21 10:31 10:41 Temperature Pulse Rate 105 H 118 H 106 H Pulse Rate [ Anterior Bilateral Throughout] Pulse Rate [ From Monitor] Respiratory 13 18 13 Rate Respiratory Rate [Anterior Bilateral Throughout] Blood Pressure 113/68 116/66 116/66 O2 Sat by Pulse 95 93 94 Oximetry 06/05/16 06/05/16 06/05/16 10:51 11:00 11:11 Temperature Pulse Rate 110 H 109 H 112 H Pulse Rate [ Anterior Bilateral Throughout] Pulse Rate [ From Monitor] Respiratory 15 15 14 Rate Respiratory Rate [Anterior Bilateral Throughout] Blood Pressure 116/66 116/67 116/67 O2 Sat by Pulse 95 96 93 Oximetry 06/05/16 06/05/16 06/05/16 11:21 11:30 11:41 Temperature Pulse Rate 106 H 108 H 110 H Pulse Rate [ Anterior Bilateral Throughout] Pulse Rate [ From Monitor] Respiratory 12 15 15 Rate Respiratory Rate [Anterior Bilateral Throughout] Blood Pressure 116/67 101/60 101/60 O2 Sat by Pulse 93 93 92 Oximetry 06/05/16 06/05/16 06/05/16 11:51 12:00 12:11 Temperature 98.0 F Pulse Rate 109 H 113 H 108 H Pulse Rate [ Anterior Bilateral Throughout] Pulse Rate [ From Monitor] Respiratory 14 16 18 Rate Respiratory Rate [Anterior Bilateral Throughout] Blood Pressure 101/60 115/76 115/76 O2 Sat by Pulse 93 91 93 Oximetry 06/05/16 06/05/16 12:21 12:30 Temperature Pulse Rate 112 H 111 H Pulse Rate [ Anterior Bilateral Throughout] Pulse Rate [ From Monitor] Respiratory 21 16 Rate Respiratory Rate [Anterior Bilateral Throughout] Blood Pressure 115/76 117/65 O2 Sat by Pulse 94 Oximetry Constitutional: other (delirious) Eyes: non-icteric ENT: oropharynx moist Neck: supple, no lymphadenopathy Effort: mildly labored Ascultation: Bilateral: diminished breath sounds, rales Cardiovascular: regular rate and rhythm Gastrointestinal: normoactive bowel sounds, soft, tender (mild diffuse), non- distended Integumentary: normal Extremities: no cyanosis, no edema, pink and warm, pulses normal Neurologic: non-focal exam, pupils equal and round, motor strength normal and Psychiatric: other (confused) CBC and BMP: 06/05/16 08:30 06/05/16 10:41 ABG, PT/INR, D-dimer: ABG POC ABG pH 7.343 (7.35-7.45) L 06/03/16 13:41 POC ABG pCO2 30.2 (35-45) L 06/03/16 13:41 POC ABG pO2 66 (80-105) L 06/03/16 13:41 POC ABG HCO3 16.4 06/03/16 13:41 POC ABG Total CO2 17 06/03/16 13:41 POC ABG O2 Sat 92 06/03/16 13:41 PT/INR, D-dimer PT 14.7 Sec. (12.2-14.9) 05/31/16 11:50 INR 1.16 (0.87-1.13) H 05/31/16 11:50 Abnormal lab findings: Abnormal Labs 05/30/16 05/31/16 05/31/16 23:08 04:00 04:00 WBC 12.3 H Hgb Hct MCV 83 L MCH 27 L MCHC RDW 21.4 H Plt Count Seg Neuts % (Manual) 90.0 H Lymphocytes % (Manual) 4.0 L Seg Neutrophils # Man 11.1 H Abs Lymphs (Manual) Lymphocytes # (Manual) 0.5 L Monocytes # (Manual) INR POC ABG pH POC ABG pCO2 POC ABG pO2 Sodium 136 L Potassium Chloride Carbon Dioxide 19 L BUN 22 H Creatinine Glucose 147 H POC Glucose Lactic Acid 2.8 H* Uric Acid Calcium 8.3 L Magnesium Total Bilirubin AST ALT Alkaline Phosphatase C-Reactive Protein Total Protein Albumin Urine Creatinine Lymph Enumerat CD4/CD8 Absolute CD3 Count % CD4 Cells Absolute CD4 Count % CD8 Cells Absolute CD8 Count Absolute CD19 Count 05/31/16 05/31/16 05/31/16 11:50 11:50 20:17 WBC Hgb Hct MCV MCH MCHC RDW Plt Count Seg Neuts % (Manual) Lymphocytes % (Manual) Seg Neutrophils # Man Abs Lymphs (Manual) 315 L Lymphocytes # (Manual) Monocytes # (Manual) INR 1.16 H POC ABG pH POC ABG pCO2 POC ABG pO2 Sodium Potassium Chloride Carbon Dioxide BUN Creatinine Glucose POC Glucose Lactic Acid 4.9 H* Uric Acid Calcium Magnesium Total Bilirubin AST ALT Alkaline Phosphatase C-Reactive Protein Total Protein Albumin Urine Creatinine Lymph Enumerat CD4/CD8 6.19 H Absolute CD3 Count 228 L % CD4 Cells 63 H Absolute CD4 Count 197 L % CD8 Cells 10 L Absolute CD8 Count 32 L Absolute CD19 Count 57 L 06/01/16 06/01/16 06/02/16 06:33 06:33 06:11 WBC 17.0 H 18.9 H Hgb 10.7 L 10.3 L Hct 32.8 L 32.9 L MCV 82 L MCH 27 L 27 L MCHC 31 L RDW 21.6 H 22.7 H Plt Count Seg Neuts % (Manual) 98.0 H 99.0 H Lymphocytes % (Manual) 1.0 L 0 L Seg Neutrophils # Man 16.7 H 18.7 H Abs Lymphs (Manual) Lymphocytes # (Manual) 0.2 L 0.0 L Monocytes # (Manual) INR POC ABG pH POC ABG pCO2 POC ABG pO2 Sodium 136 L Potassium Chloride Carbon Dioxide 20 L BUN 25 H Creatinine Glucose 135 H POC Glucose Lactic Acid Uric Acid Calcium 8.3 L Magnesium Total Bilirubin AST ALT Alkaline Phosphatase C-Reactive Protein Total Protein Albumin Urine Creatinine Lymph Enumerat CD4/CD8 Absolute CD3 Count % CD4 Cells Absolute CD4 Count % CD8 Cells Absolute CD8 Count Absolute CD19 Count 06/02/16 06/02/16 06/02/16 06:11 08:35 16:10 WBC Hgb Hct MCV MCH MCHC RDW Plt Count Seg Neuts % (Manual) Lymphocytes % (Manual) Seg Neutrophils # Man Abs Lymphs (Manual) Lymphocytes # (Manual) Monocytes # (Manual) INR POC ABG pH 7.317 L POC ABG pCO2 27.8 L POC ABG pO2 63 L Sodium Potassium 5.1 H Chloride 97.9 L Carbon Dioxide 18 L BUN 42 H Creatinine 1.6 H D Glucose 127 H POC Glucose 127 H Lactic Acid Uric Acid Calcium Magnesium Total Bilirubin AST ALT Alkaline Phosphatase C-Reactive Protein Total Protein Albumin Urine Creatinine Lymph Enumerat CD4/CD8 Absolute CD3 Count % CD4 Cells Absolute CD4 Count % CD8 Cells Absolute CD8 Count Absolute CD19 Count 06/02/16 06/02/16 06/03/16 18:20 18:30 05:00 WBC 16.2 H Hgb 10.6 L Hct 33.8 L MCV MCH 27 L MCHC RDW 22.1 H Plt Count 488 H Seg Neuts % (Manual) 92.0 H Lymphocytes % (Manual) 1.0 L Seg Neutrophils # Man 14.9 H Abs Lymphs (Manual) Lymphocytes # (Manual) 0.2 L Monocytes # (Manual) 1.1 H INR POC ABG pH POC ABG pCO2 POC ABG pO2 Sodium Potassium Chloride Carbon Dioxide BUN Creatinine Glucose POC Glucose Lactic Acid 5.7 H* Uric Acid Calcium Magnesium Total Bilirubin AST ALT Alkaline Phosphatase C-Reactive Protein 4.30 H Total Protein Albumin Urine Creatinine Lymph Enumerat CD4/CD8 Absolute CD3 Count % CD4 Cells Absolute CD4 Count % CD8 Cells Absolute CD8 Count Absolute CD19 Count 06/03/16 06/03/16 06/03/16 05:00 12:09 12:13 WBC Hgb Hct MCV MCH MCHC RDW Plt Count Seg Neuts % (Manual) Lymphocytes % (Manual) Seg Neutrophils # Man Abs Lymphs (Manual) Lymphocytes # (Manual) Monocytes # (Manual) INR POC ABG pH POC ABG pCO2 POC ABG pO2 Sodium 134 L Potassium Chloride Carbon Dioxide 16 L BUN 63 H Creatinine 2.2 H Glucose 129 H POC Glucose Lactic Acid 2.6 H* Uric Acid Calcium 7.3 L Magnesium Total Bilirubin AST ALT Alkaline Phosphatase C-Reactive Protein Total Protein Albumin Urine Creatinine 125.2 H Lymph Enumerat CD4/CD8 Absolute CD3 Count % CD4 Cells Absolute CD4 Count % CD8 Cells Absolute CD8 Count Absolute CD19 Count 06/03/16 06/04/16 06/04/16 13:41 08:11 21:00 WBC Hgb Hct MCV MCH MCHC RDW Plt Count Seg Neuts % (Manual) Lymphocytes % (Manual) Seg Neutrophils # Man Abs Lymphs (Manual) Lymphocytes # (Manual) Monocytes # (Manual) INR POC ABG pH 7.343 L POC ABG pCO2 30.2 L POC ABG pO2 66 L Sodium Potassium 5.4 H Chloride 107.8 H Carbon Dioxide 19 L 18 L BUN 74 H 78 H Creatinine 2.2 H 2.4 H Glucose 130 H 158 H POC Glucose Lactic Acid Uric Acid Calcium 6.8 L 7.1 L Magnesium Total Bilirubin 5.1 H AST 633 H ALT 555 H Alkaline Phosphatase 487 H C-Reactive Protein Total Protein 5.2 L Albumin 2.1 L Urine Creatinine Lymph Enumerat CD4/CD8 Absolute CD3 Count % CD4 Cells Absolute CD4 Count % CD8 Cells Absolute CD8 Count Absolute CD19 Count 06/05/16 06/05/16 08:30 10:41 WBC 16.9 H Hgb 10.4 L Hct 32.5 L MCV 83 L MCH 27 L MCHC RDW 21.7 H Plt Count Seg Neuts % (Manual) 99.0 H Lymphocytes % (Manual) 1.0 L Seg Neutrophils # Man 16.7 H Abs Lymphs (Manual) Lymphocytes # (Manual) 0.2 L Monocytes # (Manual) INR POC ABG pH POC ABG pCO2 POC ABG pO2 Sodium Potassium Chloride Carbon Dioxide 21 L BUN 79 H Creatinine 2.5 H Glucose POC Glucose Lactic Acid Uric Acid 8.3 H Calcium 7.3 L Magnesium 2.8 H Total Bilirubin 5.0 H AST 308 H ALT 399 H Alkaline Phosphatase 531 H C-Reactive Protein Total Protein 5.3 L Albumin 2.1 L Urine Creatinine Lymph Enumerat CD4/CD8 Absolute CD3 Count % CD4 Cells Absolute CD4 Count % CD8 Cells Absolute CD8 Count Absolute CD19 Count
[2016-06-05] MEDS: VANCOMYCIN/NS 1 GM/250 ML 1 GM/250 ML BAG IV SCH (14:45)
--- NOTE | 2016-06-05 15:22 | Discharge Summary ---
Providers - Providers Date of Admission: 05/30/16 22:32 Attending physician: BENEDICT MACE MD 05/30/16 22:37 Consult to Physician [CONS] Routine Consulting Provider: DENISE JUAN Reason For Exam: chest pain Place consult to:: Dr. Romero Notified:: please call 05/30/16 23:57 Consult to Physician [CONS] Routine Consulting Provider: ANTHONY KLEIN Reason For Exam: liver cancer Place consult to:: Dr. Romero Notified:: please call 06/02/16 07:12 Consult to Physician [CONS] Routine Consulting Provider: GAYATRI RETANA Reason For Exam: abdominal pain, free fluid in the abdomen Place consult to:: katiana Notified:: katiana Phone number called:: MD spoke with MD Was contact made?: Yes 06/02/16 07:14 Consult to Physician [CONS] Routine Consulting Provider: MARTA RUIZ Reason For Exam: AAA, free fluid in the abdomen Place consult to:: vascular suurgery Notified:: yes 06/02/16 07:17 Consult to Physician [CONS] Routine Consulting Provider: ANKIT GELLER Reason For Exam: pain in the groin and penile area Place consult to:: landy Notified:: landy Phone number called:: MD spoke with MD Comment:: Patient was already seen by Dr Geller 06/02/16 12:54 PICC Line Placement [Consult to PICC Line RN] [CONS] Stat Reason For Exam: septic shock Type Line:: PICC 06/02/16 17:27 Consult to Physician [CONS] Routine Consulting Provider: KIRTI SARMIENTO Reason For Exam: severe sepsis Place consult to:: Notified:: yes Was contact made?: Yes 06/02/16 17:29 Consult to Physician [CONS] Routine Consulting Provider: EZRA LOYOLA Reason For Exam: SHARON Place consult to:: Notified:: yes Was contact made?: Yes 06/02/16 19:02 Consult to Wound/ET Nurse [CONS] Routine Reason For Exam: wound eval 06/05/16 04:08 Consult to Wound/ET Nurse [CONS] Urgent Reason For Exam: BEHIND PATIENTS' BOTH EARS IS SORE AND VERY TENDER Hospitalization Condition: Serious Hospital course: 60-year-old male with a past medical history of liver cancer on chemotherapy, he was admitted with acute respiratory failure, sepsis due to pneumonia and intra-abdominal infection. He was treated with broad antibiotics and antifungals. He was also treated with oxygen supplementation, IV fluids, IV pressors, patient continued to get worse. Despite extensive treatments. He was pressor dependence for many days, after speaking to his family. The decision was made to de-escalate his care and transfer to hospice as patient has very slim chance of recovering, and the goal was to be close to his family during his last few days. 1. Acute hypoxic respiratory failure n 2. COPD exacerbation 3. Severe sepsis with shock 4. Acute kidney injury Multifactorial was likely due to ATN and/or vasomotor nephropathy 5. Hyperkalemia given hypotension, would avoid kayexalate rx with Ca Gluconate, Insulin and D50W Disposition: [facility] (MEDICAL FACILITY) Time spent for discharge: 35 minutes Core Measure Documentation - Palliative Care Palliative Care/ Comfort Measures: Hospice Care - Core Measures Any of the following diagnoses?: none Exam - Constitutional Vitals: Temp Pulse Resp BP Pulse Ox 98.0 F 114 H 23 97/65 93 06/05/16 12:00 06/05/16 15:11 06/05/16 15:11 06/05/16 14:31 06/05/16 14:31 General appearance: Present: no acute distress, mild distress - EENT Eyes: Present: PERRL ENT: hearing intact, clear oral mucosa - Neck Neck: Present: supple, normal ROM - Respiratory Respiratory effort: labored Respiratory: bilateral: rales - Cardiovascular Heart Sounds: Present: S1 & S2. Absent: rub, click - Extremities Extremities: pulses symmetrical, No edema Peripheral Pulses: abnormal (diminished) - Abdominal General gastrointestinal: Present: soft, non-tender, non-distended, normal bowel sounds Male genitourinary: Present: normal - Integumentary Integumentary: Present: clear, warm, dry - Musculoskeletal Musculoskeletal: gait normal, strength equal bilaterally - Psychiatric Psychiatric: other (confused) - Neurologic Neurologic: CNII-XII intact, moves all extremities Plan Follow up with: LUCY KOEHLER [Other] - 3-5 Days Prescriptions: Morphine Concentrate [Roxanol Conc 20 MG/ML ORAL LIQ] 10 mg PO Q4HR PRN #1 oralsyr PRN Reason: Pain
[2016-06-05 18:57] VITALS: BP 122/81
== END 2016-06-05 19:05 | disposition hospice, inpatient (51) | DRG 871 ==
LOC: ED 13:35 → 4A 22:32 → CC1 06-02 14:46
PROVIDERS: ADMIT Internal Medicine; ATTEND Internal Medicine
PROC: 4A033R1 Measurement of Arterial Saturation, Peripheral, Percutaneous Approach (ICD-10-PCS; 2016-05-30)
PROC: 02HV33Z Insertion of Infusion Device into Superior Vena Cava, Percutaneous Approach (ICD-10-PCS; principal; 2016-06-02)
DX: A41.9 Sepsis, unspecified organism (principal); J18.9 Pneumonia, unspecified organism; J96.01 Acute respiratory failure with hypoxia; N17.0 Acute kidney failure with tubular necrosis; R65.21 Severe sepsis with septic shock; J44.1 Chronic obstructive pulmonary disease with (acute) exacerbation; C78.7 Secondary malignant neoplasm of liver and intrahepatic bile duct; N40.0 Benign prostatic hyperplasia without lower urinary tract symptoms; M19.90 Unspecified osteoarthritis, unspecified site; I25.10 Atherosclerotic heart disease of native coronary artery without angina pectoris; C80.1 Malignant (primary) neoplasm, unspecified; I27.2 Other secondary pulmonary hypertension; Z96.659 Presence of unspecified artificial knee joint; Z90.5 Acquired absence of kidney; Z98.61 Coronary angioplasty status; Z87.891 Personal history of nicotine dependence; Z88.6 Allergy status to analgesic agent
CPT/HCPCS: 36415; 36600; 71010; 71020; 71275; 74176; 76770; 80048; 80053; 82024; 82140; 82570; 82803; 82962; 83735; 83880; 84100; 84300; 84484; 84550; 85007; 85025; 85610; 85730; 86140; 87040; 87400; 93005; 93010; 93306; 94640; 94660; 94760; 96365; 96367; 96375; J0610; J1170; J1450; J1644; J1650; J1815; J1956; J2270; J2405; J2543; J2920; J2930; J3370; J3475; J7030; J7040; P9047; Q9967